=== PATIENT | female | born 1945 | race African-American/Black ===

== ENCOUNTER → 2017-02-01 | Outpatient (CLI) | payer MEDICARE, MEDICAID | LOC: OD 15:39 | PROVIDERS: ATTEND Internal Medicine | DX: I25.118 Atherosclerotic heart disease of native coronary artery with other forms of angina pectoris (principal); Z79.899 Other long term (current) drug therapy; E78.5 Hyperlipidemia, unspecified; E78.4 Other hyperlipidemia; Z98.61 Coronary angioplasty status; G47.30 Sleep apnea, unspecified; I10 Essential (primary) hypertension; I25.2 Old myocardial infarction; I42.8 Other cardiomyopathies; I73.9 Peripheral vascular disease, unspecified; E11.9 Type 2 diabetes mellitus without complications; R09.89 Other specified symptoms and signs involving the circulatory and respiratory systems; R06.00 Dyspnea, unspecified | CPT/HCPCS: 36415; 83880 ==

== ENCOUNTER 2017-08-17 21:41 | Emergency (ER) | payer MEDICARE, MEDICAID ==
--- NOTE | 2017-08-18 00:04 | RADIOLOGY REPORT (SQ) ---
EXAM DESCRIPTION: HIP BILATERAL CLINICAL HISTORY: pain COMPARISON: None. FINDINGS: Single view of the pelvis and single frog-leg views of the bilateral hips. No acute fracture or dislocation. Moderate bilateral hip joint space narrowing and marginal osteophytosis. Atherosclerotic vascular calcification. IMPRESSION: 1. No acute fracture. 2. Moderate bilateral osteoarthritic change of the hips, slightly more prominent on the right than the left.
--- NOTE | 2017-08-18 00:05 | RADIOLOGY REPORT (SQ) ---
EXAM DESCRIPTION: KNEE LEFT 3 VIEWS CLINICAL HISTORY: pain COMPARISON: None. FINDINGS: 3 views of the left knee. No acute fracture or dislocation. No definite joint effusion. Atherosclerotic vascular calcification. Mild 3 compartment joint space narrowing with marginal osteophytosis. IMPRESSION: 1. No acute fracture or dislocation. 2. Mild 3 compartment osteoarthritic change.
--- NOTE | 2017-08-18 00:06 | RADIOLOGY REPORT (SQ) ---
EXAM DESCRIPTION: KNEE right 3 VIEWS CLINICAL HISTORY: pain COMPARISON: None. FINDINGS: 3 views of the right knee. No acute fracture or dislocation. No definite joint effusion. Atherosclerotic vascular calcification. Mild 3 compartment joint space narrowing with marginal osteophytosis. IMPRESSION: 1. No acute fracture or dislocation. 2. Mild 3 compartment osteoarthritic change.
[2017-08-18] MEDS ORDERED: HYDROCODONE/ACETAMINOPHEN 5-325 MG TABLET PO ONE (00:33)
[2017-08-18] MEDS ORDERED: DEXAMETHASONE SOD PHOS INJ 10 MG/1 ML VIAL IM ONE (00:35)
--- NOTE | 2017-08-18 00:40 | ER Document Report ---
ED Extremity Problem, Lower - General Chief Complaint: Leg Pain Stated Complaint: LEG PAIN Time Seen by Provider: 08/17/17 22:55 Mode of Arrival: Wheelchair Information source: Patient, Relative Notes: Patient is a 72-year-old very short obese black female who comes to emergency room complaining of bilateral knee and hip pain. Patient states she is to the point where she cannot walk more herself around or go any place because the pain and discomfort. She states that the combination of the hips and the started approximately 2 weeks ago. She does state she is followed up with her primary care provider and was informed that she probably has just arthritis and that that is not a lot to do for it. This is as per patient. TRAVEL OUTSIDE OF THE [place] IN LAST 30 DAYS: No - Related Data Allergies/Adverse Reactions: codeine [Codeine] Allergy (Verified 08/17/17 21:44) Past Medical History - General Information source: Patient, Relative - Social History Smoking Status: Never Smoker Cigarette use (# per day): No Chew tobacco use (# tins/day): No Smoking Education Provided: No Family History: Reviewed & Not Pertinent Patient has suicidal ideation: No Patient has homicidal ideation: No - Past Medical History Cardiac Medical History: Reports: Hx Coronary Artery Disease, Hx Hypercholesterolemia, Hx Hypertension Pulmonary Medical History: Reports: Hx COPD Denies: Hx Tuberculosis Neurological Medical History: Reports: Hx Cerebrovascular Accident - with residual left face mild weakness. Denies: Hx Seizures Endocrine Medical History: Reports: Hx Diabetes Mellitus Type 1, Hx Diabetes Mellitus Type 2 - With insulin Renal/ Medical History: Denies: Hx Peritoneal Dialysis GI Medical History: Reports: Hx Gastroesophageal Reflux Disease Musculoskeltal Medical History: Reports Hx Arthritis, Reports Hx Muscle Weakness Psychiatric Medical History: Reports: Hx Depression Past Surgical History: Reports: Hx Cardiac Surgery - cardiac stents, Hx Hysterectomy, Hx Tonsillectomy. Denies: Hx Pacemaker - Immunizations Hx Diphtheria, Pertussis, Tetanus Vaccination: No Hx Pneumococcal Vaccination: 09/05/07 Review of Systems - Review of Systems Constitutional: No symptoms reported EENT: No symptoms reported Cardiovascular: No symptoms reported Respiratory: No symptoms reported Gastrointestinal: No symptoms reported Genitourinary: No symptoms reported Female Genitourinary: No symptoms reported Musculoskeletal: Joint pain, Joint swelling, Muscle pain Skin: No symptoms reported Hematologic/Lymphatic: No symptoms reported Neurological/Psychological: No symptoms reported -: Yes All other systems reviewed and negative Physical Exam - Vital signs Vitals: Temp Pulse Resp BP Pulse Ox 98.6 F 65 16 144/67 H 94 08/17/17 21:49 08/17/17 21:49 08/17/17 21:49 08/17/17 21:49 08/17/17 21:49 Interpretation: Hypertensive - General General appearance: Alert, Other - On physical exam patient in the exam room she was sitting in a wheelchair. I attempted to do any exam on patient there but she was too uncomfortable. I obtained a nurse and had her help me a temp to move patient. Patient was almost weight on her knees. She would hardly stand and would hop on the left in order to protect the right. Patient is becoming less and less mobile according to the daughter. She is having a difficult time just transferring. - Respiratory Respiratory status: No respiratory distress Chest status: Nontender Breath sounds: Normal. No: Decreased air movement, Nonproductive cough, Productive cough, Rales, Rhonchi, Stridor, Wheezing, Other - Cardiovascular Rhythm: Regular Heart sounds: Normal auscultation - Abdominal Inspection: Normal Distension: Distended, Tympanitic. No: No distension, Fluid wave, Distended bladder, Other Bowel sounds: Normal Tenderness: No: Nontender, Tender, McBurney's point, Huitron's sign, Guarding, Rebound, Other Adult front & back diagram: 1 - Patient displays severe pain in bilateral knees. Mild swelling to both. Good popliteal pulses. Good distal dorsalis pedal pulses. Flexion and extension passively minimal pain but with active range of motion severe pain weightbearing is severe pain. 2 - Secondary area of discomfort and pain in her bilateral hips both tender to palpation however the right anterior hip is more tender than the left. There does seem to be a slight shortening on the left but no external or internal rotation noted. It could be patient's angle laying supine. - Back Back: Normal, Nontender. No: Tender, Deformity/step-off, CVA tenderness, Vertebra tenderness, Scars, Scoliosis, Wounds, Other - Extremities General upper extremity: Normal inspection, Normal ROM General lower extremity: Tender. No: Normal inspection, Nontender, Edema, Normal color, Normal ROM, Normal strength, Normal temperature, Normal weight bearing, Yariel's sign, Other Hip: Tender, Pain with ROM, Other - Patient is able to bear weight but very very limited. Has extensive pain anytime she is weightbearing. Right greater than left. Vascular status is intact. DTRs are normal. Knee: Tender, Pain with ROM, Patellar tendon intact, Tender joint line, Other - Again passive range of motion is limited discomfort active range of motion is more severe and weightbearing is extremely difficult. Popliteal pulses are normal dorsalis pedal pulses are normal Calf: Normal, Nontender Course - Vital Signs Vital signs: Temp Pulse Resp BP Pulse Ox 98.0 F 68 16 151/72 H 95 08/18/17 00:50 08/18/17 00:50 08/18/17 00:50 08/18/17 00:50 08/18/17 00:50 - Diagnostic Test Radiology reviewed: Reports reviewed - Reports of the hips show arthritis bilaterally a plain films of the knees show 3 compartment DJD [id number]. - Transfer of Care Notes: 08/18/17 01:33 I discussed with patient and patient's daughter that [id number] limited things we can do. We will try her on a short taper her steroids to see if that helps with the inflammation. I have given her a slightly more potent pain medication and Charlotte 5 mg and have talked to the daughter about it. I have fired them to talk to the primary care provider about possible referral to orthopedic however I informed him that primary doctor knows him much better than I do and knows her risk of surgery and benefit versus outcome. Patient and daughter acknowledges. Discharge - Discharge Clinical Impression: Arthritis of both hips Degenerative joint disease of knee, left Qualifiers: Osteoarthritis type: primary Qualified Code(s): M17.12 - Unilateral primary osteoarthritis, left knee Degenerative joint disease of knee, right Qualifiers: Osteoarthritis type: primary Qualified Code(s): M17.11 - Unilateral primary osteoarthritis, right knee Condition: Good Disposition: HOME, SELF-CARE Instructions: Arthritis ([facility]) Additional Instructions: As we discussed the x-rays show that you have pretty much bone on bone in both knees which causes several things to happen to get inflammation from the friction of the bone to bone and also the banging of the bone to bone. This also sent shockwaves up into the hips which caused increased pain. We will try you on a short course of steroid taper we will give you a little bit of pain medication to increase your activity of daily living slightly. As we discussed you need to discuss this with your primary care provider possibility of an orthopedic referral to see if there is anything they can do to decrease the amount of discomfort from [id number]. Or physical therapy that may also help some. Should you have any concerns or problems return to ER for recheck. Prescriptions: Hydrocodone/Acetaminophen [Charlotte 7.5-325 mg Tablet] 1 tab PO Q6 #15 tablet Methylprednisolone [Medrol Dosepack (4 mg/Tab) 21 Tab/Dosepak] 4 mg PO ASDIR PRN #21 tab.ds.pk PRN Reason: Referrals: DANIELA ANDERSEN MD [Primary Care Provider] - Follow up as needed
[2017-08-18 01:09] VITALS: BP 151/72
== END 2017-08-18 01:05 | disposition home or self-care (01) ==
LOC: ER 21:41
DX: M16.0 Bilateral primary osteoarthritis of hip (principal); M17.0 Bilateral primary osteoarthritis of knee; M25.561 Pain in right knee; M25.562 Pain in left knee; M25.551 Pain in right hip; M25.552 Pain in left hip; R14.0 Abdominal distension (gaseous); I25.10 Atherosclerotic heart disease of native coronary artery without angina pectoris; I10 Essential (primary) hypertension; J44.9 Chronic obstructive pulmonary disease, unspecified; E11.9 Type 2 diabetes mellitus without complications; Z95.5 Presence of coronary angioplasty implant and graft; Z88.5 Allergy status to narcotic agent
CPT/HCPCS: 99283; 96372; 73562 ×2; 73522; J1100; A9270; 76705; 77063; 77067; G0202

== ENCOUNTER → 2017-08-17 | Outpatient (CLI) | payer MEDICARE, MEDICAID ==
--- NOTE | 2017-08-17 10:37 | RADIOLOGY REPORT (SQ) ---
EXAM DESCRIPTION: U/S ABDOMEN LIMITED W/O DOP COMPLETED DATE/TIME: 08/17/2017 9:35 am REASON FOR STUDY: EPIGASTRIC PAIN R10.13 EPIGASTRIC PAIN Z12.31 ENCNTR SCREEN MAMMOGRAM FOR MALIGN ANT NEOPLASM OF GRACE COMPARISON: 07/30/2012 TECHNIQUE: Dynamic and static grayscale images acquired of the abdomen and recorded on PACS. Additio nal selected color Doppler and spectral images recorded. LIMITATIONS: None. FINDINGS: PANCREAS: No masses. Visualized pancreatic duct normal caliber. LIVER: 14.1 cm. Normal echotexture. LIVER VASCULATURE: Normal directional flow of the main portal vein and hepatic veins. GALLBLADDER: No stones. Normal wall thickness. No pericholecystic fluid. ULTRASOUND-DETECTED KRAUSE'S SIGN: Negative. INTRAHEPATIC DUCTS AND COMMON DUCT: CBD and intrahepatic ducts normal caliber. No filling defects. INFERIOR VENA CAVA: Normal flow. AORTA: No aneurysm. RIGHT KIDNEY: Normal size, 9.2 cm. Normal echogenicity. No solid or suspicious masses. No hydronephr osis. No calcifications. PERITONEAL AND RIGHT PLEURAL SPACE: No ascites or effusions. OTHER: No other significant findings. IMPRESSION: NORMAL RIGHT UPPER QUADRANT ULTRASOUND. TECHNICAL DOCUMENTATION: JOB ID: [id number] [employer]- All Rights Reserved
--- NOTE | 2017-08-17 16:54 | WOMENS IMAGING REPORT ---
EXAM DESCRIPTION: 3D SCREENING MAMMO BILAT COMPLETED DATE/TIME: 08/17/2017 10:01 am REASON FOR STUDY: SCREENING MAMMO R10.13 EPIGASTRIC PAIN COMPARISON: Multiple since 2008 TECHNIQUE: Standard craniocaudal and mediolateral oblique views of each breast recorded using digita l acquisition and breast tomosynthesis. LIMITATIONS: None. FINDINGS: Findings present which are benign by mammographic criteria. No suspicious masses, calcifi cations or architectural distortion. Pertinent benign findings: Benign bilateral vascular calcifications Read with the assistance of CAD. .[facility] - R2 Cenova Version 1.3 .[facility] - R2 Cenova Version 1.3 .[facility] - R2 Cenova Version 2.4 .[facility] [place] Cenova Version 2.4 .[facility] - R2 Beekeeper Version 9.2 Benign mammographic findings may include one or more of the following: Smooth masses, popcorn/rim/co arse calcifications, asymmetries, post-procedure changes, and lesions with long-standing stability. IMPRESSION: BENIGN MAMMOGRAPHIC FINDINGS. BIRADS 2 BREAST DENSITY: b. There are scattered areas of fibroglandular density. BIRAD: 2 BENIGN FINDING(S) RECOMMENDATION: RECOMMENDATION: ROUTINE SCREENING COMMENT: The patient has been notified of the results by letter per SA requirements. Additional no tification policies are in place for contacting patient with suspicious or incomplete findings. Quality ID #225: The [place] [employer] recommends an annual screening mammogram for women aged 40 years or over. This facility utilizes a reminder system to ensure that all patients receive reminder letters, and/or direct phone calls for appointments. This includes reminders for routine scr eening mammograms, diagnostic mammograms, or other Breast Imaging Interventions when appropriate. Th is patient will be placed in the appropriate reminder system. The [place] [employer] (ACR) has developed recommendations for screening MRI of the breast s in certain patient populations, to be used in conjunction with mammography. Breast MRI surveillanc e may be appropriate for women with more than 20% lifetime risk of developing breast cancer as deter mined by genetic testing, significant family history of the disease, or history of mantle radiation f or Hodgkins Disease. ACR Practice Guidelines 2008. DBT Technology DBT is a type of tomographic mammography. With conventional mammography, overlapping breast tissue ma y make lesions difficult to detect, even with good compression. DBT uses an x-ray tube that rotates a round the breast, taking images at different angles. These images are then combined to create thin sl ices of the breast that the radiologist can view as a 3D reconstruction. The Hologic unit can perform full-field digital mammograms (2D imaging); or DBT (3D imaging); or both, in a combination mode that quickly performs both the mammogram and the tomosynthesis scan while the breast is still compressed. PQRS 6045F: Fluoroscopic imaging is not utilized for breast tomosynthesis. TECHNICAL DOCUMENTATION: FINDING NUMBER: (1) ASSESSMENT: (1) JOB ID: [id number] [employer]- All Rights Reserved
== END ==
LOC: RAD 08:55
PROVIDERS: ATTEND Internal Medicine Gastroenterology
DX: Z12.31 Encounter for screening mammogram for malignant neoplasm of breast (principal); R10.13 Epigastric pain
CPT/HCPCS: 76705; 77063; G0202; 77067

== ENCOUNTER → 2017-09-26 | Outpatient (CLI) | payer MEDICARE, MEDICAID ==
--- NOTE | 2017-09-26 17:02 | RADIOLOGY REPORT (SQ) ---
EXAM DESCRIPTION: CAROTID DOPPLER COMPLETED DATE/TIME: 09/26/2017 12:07 pm REASON FOR STUDY: STENOSIS, BRUIT I65.23 OCCLUSION AND STENOSIS OF BILATERAL CAROTID ARTERIES COMPARISON: None. TECHNIQUE: Grayscale ultrasound, Doppler velocity and spectra, and color Doppler images acquired of the extra-cranial carotid and vertebral arteries. Images stored on PACS. LIMITATIONS: None. FINDINGS: RIGHT CAROTID CCA Velocities: Within normal limits. ICA Velocities Peak systolic 1.4 m/s. End diastolic 0.33 m/s. Proximal ICA/CCA peak systolic ratio 2.3. Moderate plaquing. Velocities consistent with 50 to 69% ICA stenosis, closer to 50%. LEFT CAROTID CCA Velocities: Occluded ICA Velocities Occluded. ECA occluded. VERTEBRAL ARTERIES: Antegrade flow. Normal waveforms. SUBCLAVIAN ARTERIES: No finding. OTHER: No other significant finding. IMPRESSION: 1. Occlusion of the left common carotid, left internal carotid and left external caroti d. 2. 50 to 69% stenosis involving the right ICA, closer to 50%. COMMENT: Quality ID #195: Velocity criteria are extrapolated from the diameter data as defined by t he Society of Radiologists in Ultrasound Consensus Conference. Radiology 2003: 229; 340-346. TECHNICAL DOCUMENTATION: JOB ID: [id number] [employer]- All Rights Reserved
== END ==
LOC: SP 11:06
PROVIDERS: ATTEND Specialist
DX: I65.23 Occlusion and stenosis of bilateral carotid arteries (principal)
CPT/HCPCS: 93880

== ENCOUNTER → 2018-06-12 | Outpatient (CLI) | payer MEDICARE, MEDICAID ==
--- NOTE | 2018-06-12 15:42 | RADIOLOGY REPORT (SQ) ---
EXAM DESCRIPTION: CAROTID DOPPLER COMPLETED DATE/TIME: 06/12/2018 3:09 pm REASON FOR STUDY: BRUIT I65.23 OCCLUSION AND STENOSIS OF BILATERAL CAROTID ARTERIES COMPARISON: 09/26/2017 TECHNIQUE: Grayscale ultrasound, Doppler velocity and spectra, and color Doppler images acquired of the extra-cranial carotid and vertebral arteries. Images stored on PACS. LIMITATIONS: None. FINDINGS: RIGHT CAROTID CCA Velocities: 66 centimeters/second ICA Velocities Peak systolic 138 cm/s. End diastolic 28 cm/s. Proximal ICA/CCA peak systolic ratio 2.3. Multiple plaques are present in the carotid bulb, internal carotid, and external carotid arteries. LEFT CAROTID Occluded. VERTEBRAL ARTERIES: Antegrade flow. Normal waveforms. SUBCLAVIAN ARTERIES: No finding. OTHER: No other significant finding. IMPRESSION: Complete occlusion of the left common, internal, and external carotid arteries. 50 to 6 9% stenosis on the right side. COMMENT: Quality ID #195: Velocity criteria are extrapolated from the diameter data as defined by t he Society of Radiologists in Ultrasound Consensus Conference. Radiology 2003: 229; 340-346. TECHNICAL DOCUMENTATION: JOB ID: [id number] [employer]- All Rights Reserved Reading location - IP/workstation name: [email or web address]
== END ==
LOC: SP 14:03
PROVIDERS: ATTEND Specialist
DX: I65.23 Occlusion and stenosis of bilateral carotid arteries (principal)
CPT/HCPCS: 93880

== ENCOUNTER 2018-08-16 12:05 | Emergency (ER) | payer MEDICARE, MEDICAID ==
--- NOTE | 2018-08-16 12:44 | ER Document Report ---
ED Medical Screen (RME) - General Chief Complaint: S/S of Possible Stroke Stated Complaint: STROKE WORK UP Time Seen by Provider: 08/16/18 12:36 Notes: Patient is a 73-year-old female with history of CVA that presents to the emergency department for chief complaint of needing blood work, and left eye vision loss. 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 She apparently has a history of carotid artery stenosis as well. ROS: Other than noted above, the 12 point review of systems was reviewed with the patient and were negative, all pertinent findings are included in the HPI. PHYSICAL EXAMINATION: Vital signs reviewed. GENERAL: Well-appearing, well-nourished and in no acute distress. HEAD: Atraumatic, normocephalic. EYES: Pupils equal round, dilated, extraocular movements intact, conjunctiva are normal. ENT: Nares patent NECK: Normal range of motion CV: Heart regular rate and rhythm LUNGS: No respiratory distress Musculoskeletal: Normal range of motion NEUROLOGICAL: Normal speech PSYCH: Normal mood, normal affect. MDM: Patient seen and examined for rapid initial assessment. Vital signs reviewed. A comprehensive ED assessment and evaluation of the patient, analysis of test results and completion of the medical decision making process will be conducted by additional ED providers. *Note is created using voice recognition software and may contain spelling, syntax or grammatical errors. TRAVEL OUTSIDE OF THE [place] IN LAST 30 DAYS: No - Related Data Allergies/Adverse Reactions: codeine [Codeine] Allergy (Verified 08/17/17 21:44) Past Medical History - Past Medical History Cardiac Medical History: Reports: Hx Coronary Artery Disease, Hx Hypercholesterolemia, Hx Hypertension Pulmonary Medical History: Reports: Hx COPD Denies: Hx Tuberculosis Neurological Medical History: Reports: Hx Cerebrovascular Accident - with residual left face mild weakness. Denies: Hx Seizures Endocrine Medical History: Reports: Hx Diabetes Mellitus Type 1, Hx Diabetes Mellitus Type 2 - With insulin Renal/ Medical History: Denies: Hx Peritoneal Dialysis GI Medical History: Reports: Hx Gastroesophageal Reflux Disease Musculoskeltal Medical History: Reports Hx Arthritis, Reports Hx Muscle Weakness Psychiatric Medical History: Reports: Hx Depression Past Surgical History: Reports: Hx Cardiac Surgery - cardiac stents, Hx Hysterectomy, Hx Tonsillectomy. Denies: Hx Pacemaker - Immunizations Hx Diphtheria, Pertussis, Tetanus Vaccination: No Physical Exam - Vital signs Vitals: Temp Pulse Resp BP Pulse Ox 99.1 F 63 20 125/57 L 99 08/16/18 12:16 08/16/18 12:16 08/16/18 12:16 08/16/18 12:16 08/16/18 12:16 Course - Vital Signs Vital signs: Temp Pulse Resp BP Pulse Ox 99.1 F 63 20 125/57 L 99 08/16/18 12:16 08/16/18 12:16 08/16/18 12:16 08/16/18 12:16 08/16/18 12:16 Doctor's Discharge - Discharge Referrals: DANIELA ANDERSEN MD [Primary Care Provider] - Follow up as needed
--- NOTE | 2018-08-16 13:13 | RADIOLOGY REPORT (SQ) ---
EXAM DESCRIPTION: CHEST SINGLE VIEW COMPLETED DATE/TIME: 08/16/2018 12:56 pm REASON FOR STUDY: left eye vision loss COMPARISON: September 2015 EXAM PARAMETERS: NUMBER OF VIEWS: One view. TECHNIQUE: Single frontal radiographic view of the chest acquired. RADIATION DOSE: NA LIMITATIONS: None. FINDINGS: LUNGS AND PLEURA: No opacities, masses or pneumothorax. No pleural effusion. MEDIASTINUM AND HILAR STRUCTURES: No masses. Contour normal. HEART AND VASCULAR STRUCTURES: Heart normal in size. Normal vasculature. BONES: No acute findings. HARDWARE: None in the chest. OTHER: No other significant finding. IMPRESSION: NO ACUTE RADIOGRAPHIC FINDING IN THE CHEST. TECHNICAL DOCUMENTATION: JOB ID: [id number] [employer]- All Rights Reserved Reading location - IP/workstation name: [email or web address]
--- NOTE | 2018-08-16 13:23 | RADIOLOGY REPORT (SQ) ---
EXAM DESCRIPTION: CT HEAD WITHOUT COMPLETED DATE/TIME: 08/16/2018 1:07 pm REASON FOR STUDY: left eye vision loss COMPARISON: February 2011 TECHNIQUE: Axial images acquired through the brain without intravenous contrast. Images reviewed wi th bone, brain and subdural windows. Additional sagittal and coronal reconstructions were generated. Images stored on PACS. All CT scanners at this facility use dose modulation, iterative reconstruction, and/or weight based d osing when appropriate to reduce radiation dose to as low as reasonably achievable (ALARA). [facility]: Dose Right [facility]: CareDose [facility]: Dose Right [facility]: Teradose 4D [facility]: [employer] RADIATION DOSE: CT Rad equipment meets quality standard of care and radiation dose reduction techniq ues were employed. CTDIvol: 48.5 mGy. DLP: 855 mGy-cm. mGy. LIMITATIONS: None. FINDINGS: VENTRICLES: Prominent. CEREBRUM: No masses. No hemorrhage. No midline shift. Areas of low density in the white matter mos t likely due to chronic micro-vascular ischemic change. The previously described old left frontal lo be infarct appears stable. No evidence for acute infarction. CEREBELLUM: No masses. No hemorrhage. No alteration of density. No evidence for acute infarction. EXTRAAXIAL SPACES: Mild age-related involutional change. No fluid collections. No masses. ORBITS AND GLOBE: No intra- or extraconal masses. Normal contour of globe without masses. CALVARIUM: No fracture. PARANASAL SINUSES: No fluid or mucosal thickening. SOFT TISSUES: No mass or hematoma. OTHER: No other significant finding. IMPRESSION: MILD CHRONIC CHANGES OF ATROPHY AND MICROVASCULAR ISCHEMIA. NO ACUTE PROCESS. EVIDENCE OF ACUTE STROKE: NO. TECHNICAL DOCUMENTATION: JOB ID: [id number] Quality ID # [id number]: Final reports with documentation of one or more dose reduction techniques (e.g., Au tomated exposure control, adjustment of the mA and/or kV according to patient size, use of iterative reconstruction technique) 2010 [employer]- All Rights Reserved Reading location - IP/workstation name: [email or web address]
[2018-08-16 14:00] LABS: ABSOLUTE EOSINOPHILS # (AUTO) 0.1 10^3/uL (0.0-0.6); ABSOLUTE MONOCYTES (AUTO) 0.3 10^3/uL (0.1-1.4); ABSOLUTE NEUT (AUTO) 1.8 10^3/uL (1.7-8.2); BASOPHILS % (AUTO) 0.9 % (0-2); EOSINOPHILS % (AUTO) 3.2 % (0-6); HEMATOCRIT 36.2 % (36.0-47.0); HEMOGLOBIN 12.1 g/dL (12.0-15.5); LYMPHOCYTES % (AUTO) 31.6 % (13-45); MEAN CORPUSCULAR HEMOGLOBIN 29.1 pg (27.0-33.4); MEAN CORPUSCULAR HGB CONC 33.5 g/dL (32.0-36.0); MEAN CORPUSCULAR VOLUME 87 fl (80-97); MONOCYTES % (AUTO) 8.4 % (3-13); PLATELET COUNT 193 10^3/uL (150-450); RED BLOOD COUNT 4.17 10^6/uL (3.72-5.28); RED CELL DISTRIBUTION WIDTH 16.2 % (11.5-14.0); SEGMENTED NEUTROPHILS % (AUTO) 55.9 % (42-78); TOTAL CELLS COUNTED % (AUTO) 100 %; WHITE BLOOD COUNT 3.2 10^3/uL (4.0-10.5)
[2018-08-16 14:21] LABS: ALANINE AMINOTRANSFERASE 13 U/L (9-52); ALKALINE PHOSPHATASE 57 U/L (38-126); ANION GAP 7 (5-19); ASPARTATE AMINO TRANSFERASE 16 U/L (14-36); BILIRUBIN,TOTAL 0.6 mg/dL (0.2-1.3); BLOOD UREA NITROGEN 23 mg/dL (7-20); CALCIUM 9.7 mg/dL (8.4-10.2); CARBON DIOXIDE 35 mmol/L (22-30); CHLORIDE 102 mmol/L (98-107); GLUCOSE 100 mg/dL (75-110); SODIUM 144.3 mmol/L (137-145); TOTAL PROTEIN 7.2 g/dL (6.3-8.2)
[2018-08-16 14:22] LABS: C-REACTIVE PROTEIN < 5.0 mg/L (<10.0)
[2018-08-16 14:47] LABS: ERYTHROCYTE SEDIMENTATION RATE 39 mm/hr (0-30)
--- NOTE | 2018-08-16 15:04 | ER Document Report ---
ED General - General Chief Complaint: S/S of Possible Stroke Stated Complaint: STROKE WORK UP Time Seen by Provider: 08/16/18 12:36 Notes: This is a 73-year-old female patient sent over by the retinal specialist for evaluation of possible stroke. Patient lost the vision in her left eye on of last week. Had eye appointment on Tuesday with Dr. Manning. Dr. Manning wanted patient seen by retinal specialist Dr. Martinez. Dr. Hill did evaluation dilated the eyes and was concerned about possible stroke so sent her here for evaluation. Patient has had previous stroke affecting the left side. Speech has not changed. Safemaker strength is not changed. Patient can see some movement out of the left eye and some light. Cannot discern shapes well. Denies any pain. Patient presents here with dilated pupils and light protection shades on. TRAVEL OUTSIDE OF THE [place] IN LAST 30 DAYS: No - HPI Onset: Last week Onset/Duration: Constant Quality of pain: No pain Severity: Mild Pain Level: 0 Associated symptoms: None - Related Data Allergies/Adverse Reactions: codeine [Codeine] Allergy (Verified 08/17/17 21:44) Past Medical History - General Information source: Patient, Relative - Social History Smoking Status: Former Smoker Chew tobacco use (# tins/day): No Frequency of alcohol use: None Drug Abuse: None Lives with: Family Family History: Reviewed & Not Pertinent Patient has suicidal ideation: No Patient has homicidal ideation: No - Past Medical History Cardiac Medical History: Reports: Hx Coronary Artery Disease, Hx Hypercholesterolemia, Hx Hypertension Pulmonary Medical History: Reports: Hx COPD Denies: Hx Tuberculosis Neurological Medical History: Reports: Hx Cerebrovascular Accident - with residual left face mild weakness. Denies: Hx Seizures Endocrine Medical History: Reports: Hx Diabetes Mellitus Type 1, Hx Diabetes Mellitus Type 2 - With insulin Renal/ Medical History: Denies: Hx Peritoneal Dialysis GI Medical History: Reports: Hx Gastroesophageal Reflux Disease Musculoskeletal Medical History: Reports Hx Arthritis, Reports Hx Muscle Weakness Psychiatric Medical History: Reports: Hx Depression Past Surgical History: Reports: Hx Cardiac Surgery - cardiac stents, Hx Hysterectomy, Hx Tonsillectomy. Denies: Hx Pacemaker - Immunizations Hx Diphtheria, Pertussis, Tetanus Vaccination: No Hx Pneumococcal Vaccination: 09/05/07 Review of Systems - Review of Systems Notes: Constitutional: denies: Chills, Diaphoresis, Fever, Malaise, Weakness EENT: denies: Eye discharge, Blurred vision, Tearing, Double vision, Nose congestion, Nose discharge, Throat swelling, Mouth pain. Patient does complain of vision loss in the left eye. Cardiovascular: denies: Palpitations, Heart racing, Orthopnea, Dyspnea, Chest pain Respiratory: denies: Cough, Hurts to breathe, Wheezing, Shortness of breath Gastrointestinal: denies: Abdominal pain, Diarrhea, Nausea, Vomiting, Black stools, bright red blood in stool Genitourinary: denies: Burning, Dysuria, Discharge, Frequency, Flank pain, Hematuria Musculoskeletal: denies: Joint pain, Joint swelling, Muscle pain, Muscle stiffness, back pain Hematologic/Lymphatic: denies: Anemia, Easy bleeding, Easy bruising, Blood clots Neurological/Psychological: denies: Confusion, Dementia, Depression, Loss of consciousness. Chronic left upper and left lower extremity weakness and speech difficulty from prior stroke. Skin: No lesions, no masses, no skin breakdown, no abscesses Physical Exam - Vital signs Vitals: Temp Pulse Resp BP Pulse Ox 99.1 F 63 20 125/57 L 99 08/16/18 12:16 08/16/18 12:16 08/16/18 12:16 08/16/18 12:16 08/16/18 12:16 Interpretation: Normal - General General appearance: Appears well, Alert - HEENT Head: Normocephalic, Atraumatic Eyes: Normal Pupils: Dilated Notes: Patient can see objects out of the left eye. Right eye is normal. Cannot discern anything far away but can discern some shapes up close. - Respiratory Respiratory status: No respiratory distress Chest status: Nontender Breath sounds: Normal Chest palpation: Normal - Cardiovascular Rhythm: Regular Heart sounds: Normal auscultation Murmur: No - Abdominal Inspection: Normal Distension: No distension Bowel sounds: Normal Tenderness: Nontender Organomegaly: No organomegaly - Back Back: Normal, Nontender - Extremities General upper extremity: Normal inspection, Nontender, Normal color, Normal ROM , Normal temperature General lower extremity: Normal inspection, Nontender, Normal color, Normal ROM , Normal temperature, Normal weight bearing. No: Yariel's sign - Neurological Neuro grossly intact: Yes Cognition: Normal Orientation: AAOx4 [place] Coma Scale Eye Opening: Spontaneous Raghav Coma Scale Verbal: Oriented [place] Coma Scale Motor: Obeys Commands Raghav Coma Scale Total: 15 Speech: Normal Motor strength normal: RUE, RLE. No: LUE, LLE - mild weakness Sensory: Normal - Psychological Associated symptoms: Normal affect, Normal mood - Skin Skin Temperature: Warm Skin Moisture: Dry Skin Color: Normal Course - Re-evaluation Re-evalutation: 08/16/18 16:59 Laboratory 08/16/18 08/16/18 08/16/18 13:36 13:36 13:36 WBC 3.2 L RBC 4.17 Hgb 12.1 Hct 36.2 MCV 87 MCH 29.1 MCHC 33.5 RDW 16.2 H Plt Count 193 Seg Neutrophils % 55.9 Lymphocytes % 31.6 Monocytes % 8.4 Eosinophils % 3.2 Basophils % 0.9 Absolute Neutrophils 1.8 Absolute Lymphocytes 1.0 Absolute Monocytes 0.3 Absolute Eosinophils 0.1 Absolute Basophils 0.0 ESR 39 H Sodium 144.3 Potassium 4.0 Chloride 102 Carbon Dioxide 35 H Anion Gap 7 BUN 23 H Creatinine 0.83 Est GFR ( Amer) > 60 Est GFR (Non-Af Amer) > 60 Glucose 100 Calcium 9.7 Total Bilirubin 0.6 Direct Bilirubin 0.0 Neonat Total Bilirubin Not Reportable Neonat Direct Bilirubin Not Reportable Neonat Indirect Bili Not Reportable AST 16 ALT 13 Alkaline Phosphatase 57 Troponin I < 0.012 C-Reactive Protein < 5.0 Total Protein 7.[address] 08/16/18 12:44 IMPRESSION: MILD CHRONIC CHANGES OF ATROPHY AND MICROVASCULAR ISCHEMIA. NO ACUTE PROCESS. EVIDENCE OF ACUTE STROKE: NO. Chest X-Ray 08/16/18 12:45 IMPRESSION: NO ACUTE RADIOGRAPHIC FINDING IN THE CHEST. Head MRI 08/16/18 15:03 IMPRESSION: MINIMAL MICROVASCULAR ISCHEMIC CHANGE. Stable area of prior infarction in the left frontal lobe. Other findings as noted above EVIDENCE OF ACUTE STROKE: NO. At this time I see no evidence of acute stroke. Symptoms have been present since last week. At this time will discharge in stable condition. 08/16/18 20:13 Discussed the case with the leaf blender who sent her here. He is comfortable with the outcomes of this workup. He will follow her as an outpatient. I have discussed the case as well with the patient's primary care provider, Dr. Smith, he will see her tomorrow. At this time patient is already on aspirin and Plavix. Nothing further in my opinion to add at this time. I have advised her to return if she develops any worsening symptoms or concerns. will see her tomorrow and will do further evaluation. Patient is comfortable with this plan. Will DC at this time in stable condition. - Vital Signs Vital signs: Temp Pulse Resp BP Pulse Ox 99.1 F 61 13 159/61 H 98 08/16/18 12:16 08/16/18 18:23 08/16/18 18:23 08/16/18 18:23 08/16/18 18:23 - Laboratory Result Diagrams: 08/16/18 13:36 08/16/18 13:36 Laboratory results interpreted by me: 08/16/18 08/16/18 13:36 13:36 WBC 3.2 L RDW 16.2 H ESR 39 H Carbon Dioxide 35 H BUN 23 H Discharge - Discharge Clinical Impression: Vision loss of left eye Condition: Good Disposition: HOME, SELF-CARE Instructions: Stroke ([facility]) Additional Instructions: Continue with all of your regular medications as prescribed. Follow up with your doctor tomorrow. Return immediately for any concerns Referrals: DANIELA ANDERSEN MD [Primary Care Provider] - Follow up tomorrow
--- NOTE | 2018-08-16 16:35 | RADIOLOGY REPORT (SQ) ---
EXAM DESCRIPTION: MRI HEAD WITHOUT COMPLETED DATE/TIME: 08/16/2018 3:59 pm REASON FOR STUDY: left vision loss COMPARISON: Brain CT scan dated 08/16/2018 TECHNIQUE: Multiplanar imaging includes non-contrasted T1, T2, FLAIR, and Diffusion with ADC map seq uences. Images stored on PACS. LIMITATIONS: None. FINDINGS: ANATOMY: No anomalies. Normal vascular flow voids. Pituitary fossa normal. CSF SPACES: Normal in size and contour. No hemorrhage. CEREBRUM: A few high-signal intensity lesions scattered throughout the white matter on FLAIR imaging with distribution suggesting chronic micro-vascular ischemic change. Sulci and gyri normal in size a nd contour. No evidence of hemorrhage, mass or extraaxial fluid collection. The previously describe d area of prior infarction in the left frontal lobe appears stable. POSTERIOR FOSSA: No signal alteration. No hemorrhage. No edema, masses or mass effect. Internal trenton tory canals, cerebello-pontine angles, mastoids normal. DIFFUSION: Negative for acute or sub-acute infarction. ORBITS: No masses. Globes normal. PARANASAL SINUSES: No fluid levels. Mucosa normal. OTHER: No other significant finding. IMPRESSION: MINIMAL MICROVASCULAR ISCHEMIC CHANGE. Stable area of prior infarction in the left fron delsia lobe. Other findings as noted above EVIDENCE OF ACUTE STROKE: NO. TECHNICAL DOCUMENTATION: JOB ID: [id number] [employer]- All Rights Reserved Reading location - IP/workstation name: [facility]
[2018-08-16 17:01] VITALS: BP 159/61
--- NOTE | 2018-08-16 21:07 | EKG REPORT ---
SEVERITY:- BORDERLINE ECG - SINUS RHYTHM BORDERLINE R WAVE PROGRESSION, ANTERIOR LEADS : Confirmed by: Sun Baez MD 16-Aug-2018 21:05:36
== END 2018-08-16 18:09 | disposition home or self-care (01) ==
LOC: ER 12:05
DX: H54.62 Unqualified visual loss, left eye, normal vision right eye (principal); Z87.891 Personal history of nicotine dependence; I25.10 Atherosclerotic heart disease of native coronary artery without angina pectoris; I10 Essential (primary) hypertension; J44.9 Chronic obstructive pulmonary disease, unspecified; E11.9 Type 2 diabetes mellitus without complications; Z79.4 Long term (current) use of insulin
CPT/HCPCS: 36415; 70450; 70551; 71045; 80053; 84484; 85025; 85652; 86140; 93005; 93010; 99285

== ENCOUNTER → 2018-08-23 | Outpatient (CLI) | payer MEDICARE, MEDICAID ==
--- NOTE | 2018-08-24 09:10 | WOMENS IMAGING REPORT ---
EXAM DESCRIPTION: 3D SCREENING MAMMO BILAT COMPLETED DATE/TIME: 08/23/2018 3:34 pm REASON FOR STUDY: ROUTINE BILATERAL SCREENING;Z12.31 Z12.31 ENCNTR SCREEN MAMMOGRAM FOR MALIGNANT N EOPLASM OF GRACE COMPARISON: 08/17/2017 and 08/16/2016. TECHNIQUE: Standard craniocaudal and mediolateral oblique views of each breast recorded using digita l acquisition and breast tomosynthesis. LIMITATIONS: None. FINDINGS: No masses, calcifications or architectural distortion. No areas of suspicion. Read with the assistance of CAD. .[facility] - R2 [employer] Version 1.3 .[facility] - R2 [employer] Version 1.3 .[facility] - R2 C[employer] Version 2.4 .[facility] - R2 Cenova Version 2.4 .[facility] - R2 [employer] Doctor Version 9.2 IMPRESSION: NORMAL MAMMOGRAM. BIRADS 1. BREAST DENSITY: b. There are scattered areas of fibroglandular density. BIRAD: 1 NEGATIVE RECOMMENDATION: ROUTINE SCREENING COMMENT: The patient has been notified of the results by letter per SA requirements. Additional no tification policies are in place for contacting patient with suspicious or incomplete findings. Quality ID #[id number]: The [employer] recommends an annual screening mammogram for women aged 40 years or over. This facility utilizes a reminder system to ensure that all patients receive reminder letters, and/or direct phone calls for appointments. This includes reminders for routine scr eening mammograms, diagnostic mammograms, or other Breast Imaging Interventions when appropriate. Th is patient will be placed in the appropriate reminder system. The [employer] (ACR) has developed recommendations for screening MRI of the breast s in certain patient populations, to be used in conjunction with mammography. Breast MRI surveillanc e may be appropriate for women with more than 20% lifetime risk of developing breast cancer as deter mined by genetic testing, significant family history of the disease, or history of mantle radiation f or Hodgkins Disease. ACR Practice Guidelines 2008. DBT Technology DBT is a type of tomographic mammography. With conventional mammography, overlapping breast tissue ma y make lesions difficult to detect, even with good compression. DBT uses an x-ray tube that rotates a round the breast, taking images at different angles. These images are then combined to create thin sl ices of the breast that the radiologist can view as a 3D reconstruction. The [employer] unit can perform full-field digital mammograms (2D imaging); or DBT (3D imaging); or both, in a combination mode that quickly performs both the mammogram and the tomosynthesis scan while the breast is still compressed. PQRS 6045F: Fluoroscopic imaging is not utilized for breast tomosynthesis. TECHNICAL DOCUMENTATION: FINDING NUMBER: (1) ASSESSMENT: (1) JOB ID: [id number] [employer]- All Rights Reserved Reading location - IP/workstation name: [facility]
== END ==
LOC: WI 15:18
PROVIDERS: ATTEND Internal Medicine Geriatric Medicine
DX: Z12.31 Encounter for screening mammogram for malignant neoplasm of breast (principal)
CPT/HCPCS: 77063; 77067

== ENCOUNTER 2018-11-27 19:01 | Emergency (ER) | payer MEDICARE, MEDICAID ==
[2018-11-27] MEDS ORDERED: ASPIRIN 81 MG TABLET, CHEWABLE PO ONE (20:45)
[2018-11-27] MEDS ORDERED: ACETAMINOPHEN 325 MG TABLET PO ONE (20:48)
--- NOTE | 2018-11-27 20:48 | ER Document Report ---
ED Medical Screen (RME) - General Chief Complaint: Chest Pain Stated Complaint: CHEST PAIN Time Seen by Provider: 11/27/18 20:45 Primary Care Provider: DANIELA ANDERSEN MD [Primary Care Provider] - Follow up as needed Notes: Pt present with CP on and off for the last 2 days. Cough, congestion, fever in ED. H/O stents "feels like my last heart attack." I have greeted and performed a rapid initial assessment of this patient. A comprehensive ED assessment and evaluation of the patient, analysis of test results and completion of the medical decision making process will be conducted by additional ED providers. TRAVEL OUTSIDE OF THE [place] IN LAST 30 DAYS: No - Related Data Allergies/Adverse Reactions: codeine [Codeine] Allergy (Verified 08/17/17 21:44) Past Medical History - Past Medical History Cardiac Medical History: Reports: Hx Coronary Artery Disease, Hx Hypercholest erolemia, Hx Hypertension Pulmonary Medical History: Reports: Hx COPD Denies: Hx Tuberculosis Neurological Medical History: Reports: Hx Cerebrovascular Accident - with residual left face mild weakness. Denies: Hx Seizures Endocrine Medical History: Reports: Hx Diabetes Mellitus Type 1, Hx Diabetes Mellitus Type 2 - With insulin Renal/ Medical History: Denies: Hx Peritoneal Dialysis GI Medical History: Reports: Hx Gastroesophageal Reflux Disease Musculoskeltal Medical History: Reports Hx Arthritis, Reports Hx Muscle Weakness Psychiatric Medical History: Reports: Hx Depression Past Surgical History: Reports: Hx Cardiac Surgery - cardiac stents, Hx Hysterectomy, Hx Tonsillectomy. Denies: Hx Pacemaker - Immunizations Hx Diphtheria, Pertussis, Tetanus Vaccination: No Physical Exam - Vital signs Vitals: Temp Pulse Resp BP Pulse Ox 101.3 F H 94 20 176/139 H 96 11/27/18 19:16 11/27/18 19:16 11/27/18 19:16 11/27/18 19:16 11/27/18 19:16 Course - Vital Signs Vital signs: Temp Pulse Resp BP Pulse Ox 101.3 F H 94 20 176/139 H 96 11/27/18 19:16 11/27/18 19:16 11/27/18 19:16 11/27/18 19:16 11/27/18 19:16 Doctor's Discharge - Discharge Referrals: DANIELA ANDERSEN MD [Primary Care Provider] - Follow up as needed
--- NOTE | 2018-11-27 21:26 | EKG REPORT ---
SEVERITY:- ABNORMAL ECG - SINUS RHYTHM PROBABLE LEFT ATRIAL ABNORMALITY LEFT VENTRICULAR HYPERTROPHY BORDERLINE T ABNORMALITIES, INFERIOR LEADS BORDERLINE PROLONGED QT INTERVAL : Confirmed by: Sun Baez MD 27-Nov-2018 21:25:11
--- NOTE | 2018-11-27 21:33 | RADIOLOGY REPORT (SQ) ---
XR CHEST 1 VIEW HISTORY: CP. COMPARISON: 08/16/2018 FINDINGS: The heart size is normal. No consolidation, pleural effusion, or pneumothorax is seen. There are no acute bony findings. IMPRESSION: No evidence of acute cardiopulmonary disease.
[2018-11-28] MEDS ORDERED: ONDANSETRON HCL INJ/PF 4 MG/2 ML SDV IV ONE (00:46)
[2018-11-28] MEDS ORDERED: ASPIRIN 81 MG TABLET, CHEWABLE ONE (01:09)
[2018-11-28] MEDS ORDERED: ACETAMINOPHEN 325 MG TABLET ONE (01:09)
[2018-11-28 01:11] LABS: ABSOLUTE LYMPHOCYTES (AUTO) 1.3 10^3/uL (0.5-4.7); ABSOLUTE MONOCYTES (AUTO) 0.6 10^3/uL (0.1-1.4); BASOPHILS % (AUTO) 0.8 % (0-2); EOSINOPHILS % (AUTO) 0.1 % (0-6); HEMATOCRIT 35.6 % (36.0-47.0); HEMOGLOBIN 11.9 g/dL (12.0-15.5); LYMPHOCYTES % (AUTO) 33.5 % (13-45); MEAN CORPUSCULAR HEMOGLOBIN 29.5 pg (27.0-33.4); MEAN CORPUSCULAR HGB CONC 33.5 g/dL (32.0-36.0); MEAN CORPUSCULAR VOLUME 88 fl (80-97); MONOCYTES % (AUTO) 16.1 % (3-13); PLATELET COUNT 168 10^3/uL (150-450); RED BLOOD COUNT 4.04 10^6/uL (3.72-5.28); RED CELL DISTRIBUTION WIDTH 14.4 % (11.5-14.0); SEGMENTED NEUTROPHILS % (AUTO) 49.5 % (42-78); TOTAL CELLS COUNTED % (AUTO) 100 %
[2018-11-28 01:24] LABS: ALANINE AMINOTRANSFERASE 24 U/L (9-52); ALBUMIN 4.5 g/dL (3.5-5.0); ALKALINE PHOSPHATASE 52 U/L (38-126); ANION GAP 13 (5-19); ASPARTATE AMINO TRANSFERASE 25 U/L (14-36); BILIRUBIN,DIRECT 0.2 mg/dL (0.0-0.4); BILIRUBIN,TOTAL 1.6 mg/dL (0.2-1.3); BLOOD UREA NITROGEN 21 mg/dL (7-20); CALCIUM 10.3 mg/dL (8.4-10.2); CARBON DIOXIDE 29 mmol/L (22-30); CHLORIDE 96 mmol/L (98-107); CREATINE KINASE 110 U/L (30-135); GLUCOSE 114 mg/dL (75-110); POTASSIUM 3.4 mmol/L (3.6-5.0); SODIUM 138.2 mmol/L (137-145); TOTAL PROTEIN 8.4 g/dL (6.3-8.2)
[2018-11-28 01:34] LABS: CREATINE KINASE MB 0.27 ng/mL (<4.55)
[2018-11-28] MEDS ORDERED: RINGERS SOLUTION,LACTATED 1,000 ML IV ONE (01:36)
[2018-11-28 01:38] LABS: TROPONIN I 0.12 ng/mL
[2018-11-28 01:50] LABS: A TYPE INFLUENZA AG NEGATIVE (NEGATIVE); B INFLUENZA AG NEGATIVE (NEGATIVE)
[2018-11-28 02:13] LABS: INTERNATIONAL RATION (INR) 1.04; PROTHROMBIN TIME 14.1 SEC (11.4-15.4)
[2018-11-28 02:26] LABS: VENOUS BLOOD BASE EXCESS 3.9 mmol/L; VENOUS BLOOD PCO2 40.4 mmHg (35-63); VENOUS BLOOD PH 7.46 (7.30-7.42)
[2018-11-28 02:39] LABS: APPEARANCE,URINE SLIGHTLY-CLOUDY; BILIRUBIN,URINE NEGATIVE (NEGATIVE); COLOR,URINE YELLOW; GLUCOSE, URINE NEGATIVE (NEGATIVE); KETONES,URINE TRACE mg/dL (NEGATIVE); LEUKOCYTE ESTERASE,URINE NEGATIVE (NEGATIVE); NITRITE,URINE NEGATIVE (NEGATIVE); PROTEIN,URINE 30 mg/dL (NEGATIVE); URINE SPECIFIC GRAVITY 1.019; UROBILINOGEN,URINE NEGATIVE mg/dL (<2.0)
[2018-11-28] MEDS: NITROGLYCERIN 0.4 MG/TAB 25 TAB/BOTTLE SL PRN ×3 (02:49→03:15)
[2018-11-28] MEDS ORDERED: FAMOTIDINE INJ/PF 20 MG/2 ML SDV IV ONE (03:34)
[2018-11-28] MEDS ORDERED: METOCLOPRAMIDE HCL INJ/PF 10 MG/2 ML SDV IV ONE (03:57)
--- NOTE | 2018-11-28 05:27 | RADIOLOGY REPORT (SQ) ---
EXAM DESCRIPTION: CT HEAD WITHOUT IV CONTRAST COMPLETED DATE/TME: 11/28/2018 03:35 CLINICAL HISTORY: 73 years Female, confusion COMPARISON: 08/16/18 TECHNIQUE: No contrast. Coronal and sagittal reformat. This exam was performed according to our departmental dose-optimization program, which includes automated exposure control, adjustment of the mA and/or kV according to patient size and/or use of iterative reconstruction technique. FINDINGS: No hemorrhage. Moderate encephalomalacia/gliosis of the left frontoparietal lobe, stable. No mass, mass effect, or midline shift. Atherosclerosis. Parenchymal volume loss. Brain and extra-axial structures appear otherwise intact. IMPRESSION: No acute findings. Stable left frontal infarct pattern.
--- NOTE | 2018-11-28 05:48 | RADIOLOGY REPORT (SQ) ---
EXAM DESCRIPTION: CT CHEST ANGIOGRAPHY WITHOUT THEN WITH IV CONTRAST, CT ABDOMEN PELVIS WITH IV CONTRAST COMPLETED DATE/TME: 11/28/2018 03:57 (accession [id number]), 11/28/2018 03:04 (accession [id number]) CLINICAL HISTORY: 73 years Female, tachy/SOB Comparison: None. Technique: IV contrast. Coronal and sagittal reformat. 3d reconstruction. This exam was performed according to our departmental dose-optimization program, which includes automated exposure control, adjustment of the mA and/or kV according to patient size and/or use of iterative reconstruction technique.[facility]: Dose Right [facility]: CareDose [facility]: Dose Right [facility]: Teradose 4D [facility]: [employer] LIMITATIONS: None Findings: No pulmonary embolus. No right ventricular strain. Clear lungs. Atherosclerotic vascular disease. Osteoarthritis. Cardiac enlargement. Likely benign renal cyst(s), not definitively characterized. 0.3 cm degenerative grade 1 L4 anterolisthesis. Diffuse prominence of the left adrenal gland. Small calcification of the left adrenal gland suggestive of prior infectious or inflammatory insult. Large bowel fluid retention. No ascites. Normal appendix. No gross evidence of gallbladder inflammation or hepatobiliary obstruction. No bowel obstruction. Inferior neck, axillae, mediastinum, lungs, airway, heart, liver, gallbladder, pancreas, spleen, adrenals, renal system, gastrointestinal tract, pelvic organs, lymphatics, vasculature, and musculoskeleton appear otherwise unremarkable. Impression: No pulmonary embolus. No acute thoracic, abdominal, or pelvic findings.
--- NOTE | 2018-11-28 05:48 | RADIOLOGY REPORT (SQ) ---
EXAM DESCRIPTION: CT CHEST ANGIOGRAPHY WITHOUT THEN WITH IV CONTRAST, CT ABDOMEN PELVIS WITH IV CONTRAST COMPLETED DATE/TME: 11/28/2018 03:57 (accession [id number]), 11/28/2018 03:04 (accession [id number]) CLINICAL HISTORY: 73 years Female, tachy/SOB Comparison: None. Technique: IV contrast. Coronal and sagittal reformat. 3d reconstruction. This exam was performed according to our departmental dose-optimization program, which includes automated exposure control, adjustment of the mA and/or kV according to patient size and/or use of iterative reconstruction technique.[facility]: Dose Right [facility]: CareDose [facility]: Dose Right [facility]: Teradose 4D [facility]: [employer] LIMITATIONS: None Findings: No pulmonary embolus. No right ventricular strain. Clear lungs. Atherosclerotic vascular disease. Osteoarthritis. Cardiac enlargement. Likely benign renal cyst(s), not definitively characterized. 0.3 cm degenerative grade 1 L4 anterolisthesis. Diffuse prominence of the left adrenal gland. Small calcification of the left adrenal gland suggestive of prior infectious or inflammatory insult. Large bowel fluid retention. No ascites. Normal appendix. No gross evidence of gallbladder inflammation or hepatobiliary obstruction. No bowel obstruction. Inferior neck, axillae, mediastinum, lungs, airway, heart, liver, gallbladder, pancreas, spleen, adrenals, renal system, gastrointestinal tract, pelvic organs, lymphatics, vasculature, and musculoskeleton appear otherwise unremarkable. Impression: No pulmonary embolus. No acute thoracic, abdominal, or pelvic findings.
[2018-11-28] MEDS ORDERED: NITROGLYCERIN 5 MG (0.2 MG/HR) PATCH.TD24 TD ONE (06:01)
--- NOTE | 2018-11-28 06:19 | ER Document Report ---
ED General - General Chief Complaint: Chest Pain Stated Complaint: CHEST PAIN Time Seen by Provider: 11/27/18 20:45 Primary Care Provider: DANIELA ANDERSEN MD [Primary Care Provider] - Follow up as needed Notes: Patient is a 73-year-old female presents to the emergency department for generalized chest pain intermittently for the last couple of days. Patient states that time the pain does go into her left shoulder starts in the center of her chest sharp is nature. Patient is also complaining of generalized URI symptoms. Patient is denying taking her at home nitroglycerin or taking any aspirin. Past medical history: Coronary artery disease with stent placement, atrial fibrillation, hypertension, hyperlipidemia Medications: Aspirin, Plavix, nitroglycerin, Lipitor, meloxicam, metoprolol, Diovan allergies: None TRAVEL OUTSIDE OF THE [place] IN LAST 30 DAYS: No - Related Data Allergies/Adverse Reactions: codeine [Codeine] Allergy (Verified 08/17/17 21:44) Past Medical History - General Information source: Patient - Social History Smoking Status: Never Smoker Chew tobacco use (# tins/day): No Frequency of alcohol use: None Drug Abuse: None Family History: Reviewed & Not Pertinent Patient has suicidal ideation: No Patient has homicidal ideation: No - Past Medical History Cardiac Medical History: Reports: Hx Coronary Artery Disease, Hx Hypercholesterolemia, Hx Hypertension Pulmonary Medical History: Reports: Hx COPD Denies: Hx Tuberculosis Neurological Medical History: Reports: Hx Cerebrovascular Accident - with residual left face mild weakness. Denies: Hx Seizures Endocrine Medical History: Reports: Hx Diabetes Mellitus Type 1, Hx Diabetes Mellitus Type 2 - With insulin Renal/ Medical History: Denies: Hx Peritoneal Dialysis GI Medical History: Reports: Hx Gastroesophageal Reflux Disease Musculoskeletal Medical History: Reports Hx Arthritis, Reports Hx Muscle Weakness Psychiatric Medical History: Reports: Hx Depression Past Surgical History: Reports: Hx Cardiac Surgery - cardiac stents, Hx Hysterectomy, Hx Tonsillectomy. Denies: Hx Pacemaker - Immunizations Hx Diphtheria, Pertussis, Tetanus Vaccination: No Hx Pneumococcal Vaccination: 09/05/07 Review of Systems - Review of Systems Constitutional: See HPI EENT: See HPI Cardiovascular: See HPI Respiratory: See HPI Gastrointestinal: See HPI Genitourinary: No symptoms reported Female Genitourinary: No symptoms reported Musculoskeletal: No symptoms reported Skin: No symptoms reported Hematologic/Lymphatic: No symptoms reported Neurological/Psychological: No symptoms reported Physical Exam - Vital signs Vitals: Temp Pulse Resp BP Pulse Ox 101.3 F H 94 20 176/139 H 96 11/27/18 19:16 11/27/18 19:16 11/27/18 19:16 11/27/18 19:16 11/27/18 19:16 - Notes Notes: GENERAL: Alert, interacts well. No acute distress. HEAD: Normocephalic, atraumatic. EYES: Pupils equal, round, and reactive to light. Extraocular movements intact. ENT: Oral mucosa moist, tongue midline. NECK: Full range of motion. Supple. Trachea midline. LUNGS: Clear to auscultation bilaterally, no wheezes, rales, or rhonchi. No respiratory distress. HEART: Regular rate and rhythm. No murmur ABDOMEN: Soft, non-tender. Non-distended. Bowel sounds present in all 4 quadrants. EXTREMITIES: Moves all 4 extremities spontaneously. No edema, normal radial and dorsalis pedis pulses bilaterally. No cyanosis. BACK: no cervical, thoracic, lumbar midline tenderness. No saddle anesthesia, normal distal neurovascular exam. NEUROLOGICAL: Alert and oriented x3. Speech but not slurred, patient at baseline per daughter.. cranial nerves II through XII grossly intact PSYCH: Normal affect, normal mood. SKIN: Warm, dry, normal turgor. No rashes or lesions noted. Course - Re-evaluation Re-evalutation: Patient is a 73-year-old female who initially presents for intermittent chest pain for the last couple of days. She does presents the emergency department as febrile. Patient was treated with antipyretics and has remained afebrile throughout her stay in the emergency department. Patient has had multiple episodes of vomiting in the emergency department despite treatments. CT abdomen pelvis ordered showing no abnormalities. CT head ordered due to patient's speech. Family in room states patient typically has garbled speech but is able to be understand. Daughter states that it has been "more so than normal." In the last [address] shows no abnormalities. Throughout patient stay in the emergency department she was intermittently tachycardic and in and out of atrial fibrillation. At one point time she stated she was feeling short of breath. Noted to be in A. fib at a rate of 115. CTA chest ordered. CTA showed no signs of pulmonary embolus. Patient was treated with 3 sublingual nitroglycerin. After second sublingual nitroglycerin was noted to have a short episode of hypotension, fluid resuscitated. Despite 3 sublingual nitroglycerin patient's chest pain continues to be a 2 out of 5. Nitropaste was ordered and applied. Patient's labs show no signs of leukocytosis, no signs of urinary tract i nfection, influenza test negative, chest x-ray shows no signs of pneumonia. Patient's initial troponin was noted to be 0.120. Patient's initial EKG upon arrival to the emergency department notes a sinus rhythm at a rate of 94, QTc 486, no ST segment elevations or depressions noted. As patient was in and out of atrial fibrillation a repeat EKG was ordered. Shows a rate of 116 atrial fibrillation QTC [address] segment elevations or depressions. Due to patient's continued chest pain despite treatments, NSTEMI, she will need to be transferred to another facility. 11/28/18 06:[address] Andrews at [facility] who will accept the pt. for continued care, NSTEMI. 11/28/18 06:38 Patient's current heart rate is 84, sinus rhythm, SPO2 95%, respiratory rate 14, blood pressure 139/77. 11/28/18 07:17 Repeat EKG shows a sinus rhythm rate of 82, QTc 463, no ST segment elevations or depressions noted. 11/28/18 07:51 Current vital signs heart rate 83, normal sinus rhythm, respiratory rate 15, SPO2 97% on room air, blood pressure 122/56,. Patient continues with 2 out of 5 generalized chest pain despite treatments. Stable for transport. - Vital Signs Vital signs: Temp Pulse Resp BP Pulse Ox 98.5 F 92 14 137/61 H 97 11/28/18 07:58 11/28/18 00:31 11/28/18 08:01 11/28/18 08:01 11/28/18 08:01 - Laboratory Result Diagrams: 11/28/18 00:45 11/28/18 00:45 Laboratory results interpreted by me: 11/28/18 11/28/18 11/28/18 00:45 00:45 02:00 Hgb 11.9 L Hct 35.6 L RDW 14.4 H Monocytes % 16.1 H VBG pH 7.46 H Potassium 3.4 L Chloride 96 L BUN 21 H Glucose 114 H Calcium 10.3 H Total Bilirubin 1.6 H Total Protein 8.4 H Urine Protein Urine Ketones Urine Blood 11/28/18 02:05 Hgb Hct RDW Monocytes % VBG pH Potassium Chloride BUN Glucose Calcium Total Bilirubin Total Protein Urine Protein 30 H Urine Ketones TRACE H Urine Blood MODERATE H Discharge - Discharge Clinical Impression: NSTEMI (non-ST elevated myocardial infarction) Condition: Stable Disposition: [facility] Admitting Provider: Hospitalist - Dr. Christensen Referrals: DANIELA ANDERSEN MD [Primary Care Provider] - Follow up as needed
[2018-11-28 08:09] VITALS: BP 137/61
--- NOTE | 2018-11-28 09:51 | EKG REPORT ---
SEVERITY:- ABNORMAL ECG - ATRIAL FIBRILLATION, V-RATE 83-152 PROBABLE LVH WITH SECONDARY REPOL ABNRM PROBABLE INFERIOR INFARCT, AGE INDETERMINATE PROLONGED QT INTERVAL : Confirmed by: Sun Baez MD 28-Nov-2018 09:50:02
--- NOTE | 2018-11-28 09:51 | EKG REPORT ---
SEVERITY:- BORDERLINE ECG - SINUS RHYTHM ATRIAL PREMATURE COMPLEX PROBABLE LEFT ATRIAL ABNORMALITY BORDERLINE T ABNORMALITIES, INFERIOR LEADS : Confirmed by: Sun Baez MD 28-Nov-2018 09:49:57
== END 2018-11-28 08:10 | disposition short-term general hospital (02) ==
LOC: ER 19:01
DX: I21.4 Non-ST elevation (NSTEMI) myocardial infarction (principal); R07.9 Chest pain, unspecified; R11.10 Vomiting, unspecified; R47.9 Unspecified speech disturbances; I95.9 Hypotension, unspecified; R06.02 Shortness of breath; I25.10 Atherosclerotic heart disease of native coronary artery without angina pectoris; I48.91 Unspecified atrial fibrillation; I10 Essential (primary) hypertension; E78.5 Hyperlipidemia, unspecified; Z79.01 Long term (current) use of anticoagulants; Z79.82 Long term (current) use of aspirin; Z88.6 Allergy status to analgesic agent; Z90.710 Acquired absence of both cervix and uterus; I69.392 Facial weakness following cerebral infarction
CPT/HCPCS: 93005 ×2; 99285; 96361; 96374; 96375; 36415; 87040; 87086; 82553; 82550; 85025; 85610; 80053; 81001; 84484; 82803; 83605; 87804; 71045; 70450; 71275; 74177; 93010 ×2; A9270 ×2; J2765; J3490; J2405; J7120; S0028

== ENCOUNTER 2019-07-04 12:56 | Observation (INO) | payer MEDICARE, MEDICAID ==
--- NOTE | 2019-07-04 13:05 | ER Document Report ---
ED Medical Screen (RME) - General Chief Complaint: S/S of Possible Stroke Stated Complaint: POSSIBLE STROKE Time Seen by Provider: 07/04/19 13:01 Primary Care Provider: DANIELA ANDERSEN MD [Primary Care Provider] - Follow up as needed Mode of Arrival: Wheelchair Information source: Patient, Relative Notes: 74-year-old female with history of strokes presents to the emergency department with reports of slurred speech difficulty walking and panting for the past week. Daughter reports, via the phone, that symptoms seem to be worse last night and this morning. The niece went to see patient this morning and reports that she seems a lot worse. Patient is taking Xarelto. Patient has slurred speech and difficulty sitting up. I have greeted and performed a rapid initial assessment of this patient. A comprehensive ED assessment and evaluation of the patient, analysis of test results and completion of the medical decision making process will be conducted by additional ED providers. Dictation of this chart was performed using voice recognition software; therefore, there may be some unintended grammatical errors. TRAVEL OUTSIDE OF THE [place] IN LAST 30 DAYS: No - Related Data Allergies/Adverse Reactions: codeine [Codeine] Allergy (Verified 08/17/17 21:44) Past Medical History - Past Medical History Cardiac Medical History: Reports: Hx Coronary Artery Disease, Hx Hypercholesterolemia, Hx Hypertension Pulmonary Medical History: Reports: Hx COPD Denies: Hx Tuberculosis Neurological Medical History: Reports: Hx Cerebrovascular Accident - with residual left face mild weakness. Denies: Hx Seizures Endocrine Medical History: Reports: Hx Diabetes Mellitus Type 1, Hx Diabetes Mellitus Type 2 - With insulin Renal/ Medical History: Denies: Hx Peritoneal Dialysis GI Medical History: Reports: Hx Gastroesophageal Reflux Disease Musculoskeltal Medical History: Reports Hx Arthritis, Reports Hx Muscle Weakness Psychiatric Medical History: Reports: Hx Depression Past Surgical History: Reports: Hx Cardiac Surgery - cardiac stents, Hx Hysterectomy, Hx Tonsillectomy. Denies: Hx Pacemaker - Immunizations Hx Diphtheria, Pertussis, Tetanus Vaccination: No Doctor's Discharge - Discharge Referrals: DANIELA ANDERSEN MD [Primary Care Provider] - Follow up as needed
[2019-07-04 13:44] LABS: INTERNATIONAL RATION (INR) 1.55
[2019-07-04 13:45] LABS: PARTIAL THROMBOPLASTIN TIME 32.9 SEC (23.5-35.8)
[2019-07-04 13:46] LABS: ABSOLUTE EOSINOPHILS # (AUTO) 0.2 10^3/uL (0.0-0.6); ABSOLUTE LYMPHOCYTES (AUTO) 0.9 10^3/uL (0.5-4.7); ABSOLUTE MONOCYTES (AUTO) 0.4 10^3/uL (0.1-1.4); ABSOLUTE NEUT (AUTO) 2.2 10^3/uL (1.7-8.2); HEMATOCRIT 23.1 % (36.0-47.0); LYMPHOCYTES % (AUTO) 24.5 % (13-45); MEAN CORPUSCULAR HEMOGLOBIN 24.7 pg (27.0-33.4); MEAN CORPUSCULAR HGB CONC 32.1 g/dL (32.0-36.0); MEAN CORPUSCULAR VOLUME 77 fl (80-97); MONOCYTES % (AUTO) 9.7 % (3-13); PLATELET COUNT 215 10^3/uL (150-450); SEGMENTED NEUTROPHILS % (AUTO) 58.8 % (42-78); TOTAL CELLS COUNTED % (AUTO) 100 %; WHITE BLOOD COUNT 3.8 10^3/uL (4.0-10.5)
[2019-07-04 13:47] LABS: PROTHROMBIN TIME 18.7 SEC (11.4-15.4)
[2019-07-04 13:49] LABS: HEMOGLOBIN 7.4 g/dL (12.0-15.5)
--- NOTE | 2019-07-04 13:57 | RADIOLOGY REPORT (SQ) ---
EXAM DESCRIPTION: CT HEAD WITHOUT COMPLETED DATE/TIME: 07/04/2019 1:15 pm REASON FOR STUDY: AMS, Slurred speech COMPARISON: 11/28/2018 TECHNIQUE: Axial images acquired through the brain without intravenous contrast. Images reviewed wi th bone, brain and subdural windows. Additional sagittal and coronal reconstructions were generated. Images stored on PACS. All CT scanners at this facility use dose modulation, iterative reconstruction, and/or weight based d osing when appropriate to reduce radiation dose to as low as reasonably achievable (ALARA). [facility]: Dose Right [facility]: CareDose [facility]: Dose Right [facility]: Teradose 4D [facility]: Smart eSoft RADIATION DOSE: CT Rad equipment meets quality standard of care and radiation dose reduction techniq ues were employed. CTDIvol: 53.2 mGy. DLP: 991 mGy-cm. mGy. LIMITATIONS: None. FINDINGS: VENTRICLES: Normal size and contour. CEREBRUM: No masses. No hemorrhage. No midline shift. No evidence for acute infarction. Unchanged left MCA territory encephalomalacia. CEREBELLUM: No masses. No hemorrhage. No alteration of density. No evidence for acute infarction. EXTRAAXIAL SPACES: No fluid collections. No masses. ORBITS AND GLOBE: No intra- or extraconal masses. Normal contour of globe without masses. CALVARIUM: No fracture. PARANASAL SINUSES: No fluid or mucosal thickening. SOFT TISSUES: No mass or hematoma. OTHER: No other significant finding. IMPRESSION: No acute intracranial pathology. Unchanged left MCA territory encephalomalacia in keepi ng with prior infarction. Consider MRI to more sensitively evaluate for acutely superimposed diffusi on restricting infarction. EVIDENCE OF ACUTE STROKE: NO. COMMENT: Quality ID # [id number]: Final reports with documentation of one or more dose reduction techniques (e.g., Automated exposure control, adjustment of the mA and/or kV according to patient size, use of iterative reconstruction technique) TECHNICAL DOCUMENTATION: JOB ID: [id number] [employer]- All Rights Reserved Reading location - IP/workstation name: [email or web address]
--- NOTE | 2019-07-04 13:58 | RADIOLOGY REPORT (SQ) ---
EXAM DESCRIPTION: CHEST SINGLE VIEW COMPLETED DATE/TIME: 07/04/2019 1:26 pm REASON FOR STUDY: AMS, Slurred speech COMPARISON: 11/27/2018 EXAM PARAMETERS: NUMBER OF VIEWS: One view. TECHNIQUE: Single frontal radiographic view of the chest acquired. RADIATION DOSE: NA LIMITATIONS: None. FINDINGS: LUNGS AND PLEURA: No opacities, masses or pneumothorax. No pleural effusion. MEDIASTINUM AND HILAR STRUCTURES: No masses. Contour normal. HEART AND VASCULAR STRUCTURES: Heart normal in size. Unfolded atherosclerotic thoracic aorta. BONES: No acute findings. HARDWARE: None in the chest. OTHER: No other significant finding. IMPRESSION: NO ACUTE RADIOGRAPHIC FINDING IN THE CHEST. TECHNICAL DOCUMENTATION: JOB ID: [id number] [email or web address]- All Rights Reserved Reading location - IP/workstation name: [email or web address]
[2019-07-04] MEDS ORDERED: NORMAL SALINE 250 ML IV PRN (14:01)
[2019-07-04 14:12] LABS: ALBUMIN 3.9 g/dL (3.5-5.0); ALKALINE PHOSPHATASE 63 U/L (38-126); ANION GAP 8 (5-19); ASPARTATE AMINO TRANSFERASE 18 U/L (14-36); BILIRUBIN,DIRECT 0.1 mg/dL (0.0-0.4); BILIRUBIN,TOTAL 0.3 mg/dL (0.2-1.3); BLOOD UREA NITROGEN 19 mg/dL (7-20); CALCIUM 9.1 mg/dL (8.4-10.2); CARBON DIOXIDE 26 mmol/L (22-30); CHLORIDE 106 mmol/L (98-107); CREATINE KINASE 61 U/L (30-135); GLUCOSE 91 mg/dL (75-110); TOTAL PROTEIN 7.3 g/dL (6.3-8.2)
[2019-07-04 14:28] LABS: TROPONIN I < 0.012 ng/mL
[2019-07-04 14:30] LABS: CREATINE KINASE MB 0.24 ng/mL (<4.55)
--- NOTE | 2019-07-04 14:55 | ER Document Report ---
ED General - General Chief Complaint: Altered Mental Status Stated Complaint: POSSIBLE STROKE Time Seen by Provider: 07/04/19 13:01 Primary Care Provider: DANIELA ANDERSEN MD [Primary Care Provider] - Follow up as needed Mode of Arrival: Wheelchair Information source: Patient, Relative TRAVEL OUTSIDE OF THE [place] IN LAST 30 DAYS: No - HPI Notes: Patient was brought to the hospital by [email or web address]. Niece states that the patient has been acting differently over the last several days. She has been leaning to one side as well as having more trouble than normal with speech. Patient has a previous stroke. Exactly what deficits are from this previous stroke are unclear. But niece states that the patient is having worse symptoms this week. Niece did not stay with the patient. After she spoke to the triage nurse she left. I have tried to call both numbers in the demographics. One number states that there is no voicemail available. The other number just rings with no one picking up. Patient is not a good historian. She does tell me that she has had some trouble speaking but is unable to tell me if this is a new problem. She also states that she has some weakness from her previous stroke but is unable to tell me where this weakness is. Patient's symptoms appear moderate. There does not appear to be any radiation of symptoms. Symptoms appear to be constant. There is nothing known that makes them better or worse. The symptoms seem to consist of altered mental status, trouble speaking, and some truncal ataxia. - Related Data Allergies/Adverse Reactions: codeine [Codeine] Allergy (Verified 08/17/17 21:44) Past Medical History - General Information source: Patient, Relative - Social History Smoking Status: Never Smoker Chew tobacco use (# tins/day): No Frequency of alcohol use: None Drug Abuse: None Family History: Reviewed & Not Pertinent Patient has suicidal ideation: No Patient has homicidal ideation: No - Past Medical History Cardiac Medical History: Reports: Hx Coronary Artery Disease, Hx Hypercholesterolemia, Hx Hypertension Pulmonary Medical History: Reports: Hx COPD Denies: Hx Tuberculosis Neurological Medical History: Reports: Hx Cerebrovascular Accident - with residual left face mild weakness. Denies: Hx Seizures Endocrine Medical History: Reports: Hx Diabetes Mellitus Type 1, Hx Diabetes Mellitus Type 2 - With insulin Renal/ Medical History: Denies: Hx Peritoneal Dialysis GI Medical History: Reports: Hx Gastroesophageal Reflux Disease Musculoskeletal Medical History: Reports Hx Arthritis, Reports Hx Muscle Weakness Psychiatric Medical History: Reports: Hx Depression Past Surgical History: Reports: Hx Cardiac Surgery - cardiac stents, Hx Hysterectomy, Hx Tonsillectomy. Denies: Hx Pacemaker - Immunizations Hx Diphtheria, Pertussis, Tetanus Vaccination: No Hx Pneumococcal Vaccination: 09/05/07 Review of Systems - Review of Systems Constitutional: Weakness. denies: Fever Cardiovascular: denies: Chest pain, Palpitations Respiratory: denies: Cough, Short of breath Gastrointestinal: denies: Diarrhea, Vomiting -: Yes All other systems reviewed and negative Physical Exam - Vital signs Vitals: Pulse Resp BP Pulse Ox 52 L 23 H 166/79 H 100 07/04/19 13:01 07/04/19 13:01 07/04/19 13:01 07/04/19 13:01 Interpretation: Hypertensive - General General appearance: Appears well, Alert In distress: None - HEENT Head: Normocephalic, Atraumatic Eyes: Normal Pupils: PERRL - Respiratory Respiratory status: No respiratory distress Chest status: Nontender Breath sounds: Normal Chest palpation: Normal - Cardiovascular Rhythm: Regular Heart sounds: Normal auscultation Murmur: No - Abdominal Inspection: Normal Distension: No distension Bowel sounds: Normal Tenderness: Nontender Organomegaly: No organomegaly - Rectal Tenderness: No Stool: Heme negative Hemorrhoids: None - Back Back: Normal, Nontender - Extremities General upper extremity: Normal inspection, Nontender, Normal color, Normal ROM, Normal temperature General lower extremity: Normal inspection, Nontender, Normal color, Normal ROM, Normal temperature, Normal weight bearing. No: Yariel's sign - Neurological Neuro grossly intact: Yes Orientation: Disoriented to time [place] Coma Scale Eye Opening: Spontaneous [place] Coma Scale Verbal: Confused Raghav Coma Scale Motor: Obeys Commands Raghav Coma Scale Total: 14 Speech: Dysarthria Cranial nerves: Normal Cerebellar coordination: No: Finger-nose rhombey Motor strength normal: LUE, RUE, LLE, RLE Additional motor exam normals: Equal hand lacer. No: Pronator drift Sensory: Normal - Psychological Associated symptoms: Normal affect, Normal mood - Skin Skin Temperature: Warm Skin Moisture: Dry Skin Color: Normal Course - Re-evaluation Re-evalutation: 07/04/19 14:52 History is very difficult as patient is not a good historian. There is no family with the patient. I am unable to get a hold of family. Patient apparently has some new trouble speaking, some new weakness, and some questionable new confusion. CT shows no evidence of any new pathology. Patient also has a new anemia with a hemoglobin of approximately 7. She is heme- negative from below. No known sites of bleeding are identified. It seems most prudent to admit the patient for transfusion as well as possible MRI and further CVA evaluation. I have discussed the case with the patient's primary doctor, Dr. Andersen, who will admit the patient to the hospital. - Vital Signs Vital signs: Temp Pulse Resp BP Pulse Ox 98.0 F 52 L 23 H 177/69 H 100 07/04/19 13:26 07/04/19 14:45 07/04/19 14:45 07/04/19 14:45 07/04/19 14:45 - Laboratory Result Diagrams: 07/04/19 13:30 07/04/19 13:30 Laboratory results interpreted by me: 07/04/19 07/04/19 07/04/19 13:30 13:30 13:30 WBC 3.8 L RBC 3.00 L Hgb 7.4 L Hct 23.1 L MCV 77 L MCH 24.7 L RDW 17.0 H PT 18.7 H Est GFR ( Amer) 53 L Est GFR (MDRD) Non-Af 44 L Crossmatch 07/04/19 14:00 WBC RBC Hgb Hct MCV MCH RDW PT Est GFR ( Amer) Est GFR (MDRD) Non-Af Crossmatch See Detail - Diagnostic Test Radiology reviewed: Image reviewed, Reports reviewed Discharge - Discharge Clinical Impression: Dysarthria Anemia Qualifiers: Anemia type: iron deficiency Iron deficiency anemia type: unspecified iron deficiency Qualified Code(s): D50.9 - Iron deficiency anemia, unspecified Altered mental status Qualifiers: Altered mental status type: disorientation Qualified Code(s): R41.0 - Disorientation, unspecified Condition: Serious Disposition: ADMITTED INPATIENT Admitting Provider: Sonia Unit Admitted: [facility] Referrals: DANIELA ANDERSEN MD [Primary Care Provider] - Follow up as needed
--- NOTE | 2019-07-04 19:09 | EKG REPORT ---
SEVERITY:- BORDERLINE ECG - SINUS RHYTHM BORDERLINE R WAVE PROGRESSION, ANTERIOR LEADS BORDERLINE T ABNORMALITIES, INFERIOR LEADS : Confirmed by: Jhon Vázquez MD 04-Jul-2019 19:08:00
[2019-07-04] MEDS ORDERED: DEXTROSE 50%-WATER 25 GM/50 ML DISP.SYRIN IV PRN ×2 (19:22)
[2019-07-04] MEDS ORDERED: GLUCAGON,HUMAN RECOMB 1 MG INJ IM PRN (19:22)
[2019-07-04] MEDS ORDERED: DEXTROSE 40% GEL 15 GM TUBE PO PRN ×2 (19:22)
[2019-07-04] MEDS ORDERED: TRAMADOL HCL 50 MG TABLET PO PRN (19:23)
[2019-07-04] MEDS ORDERED: AMMONIUM LACTATE TOP PRN (19:23)
[2019-07-04] MEDS ORDERED: NITROGLYCERIN 0.4 MG/TAB 25 TAB/BOTTLE SL PRN (19:23)
[2019-07-04] MEDS ORDERED: (PENDING PHARMACY ID) (Melatonin [Melatonin] 10 MG) PO SCH (22:00)
--- NOTE | 2019-07-04 22:07 | PDOC H&P ---
History of Present Illness Admission Date/PCP: 07/04/19 15:11 DANIELA NATHALY Patient complains of: Change in speech and interaction History of Present Illness: FARAZ MARTINEZ is a 74 year old female known to my practice who was brought to the ED by her niece due to reported change in her speech and interaction for several days. Family reported worsening level of interaction over last several days. Patient has history of stroke with dysarthria. She denied any chest pain or difficulty with breathing. She denied any headache or dizziness. No abdominal pain, nausea or vomiting. She denied any tarry or blood stool. She denied use of OTC NSAIDS. She denied any fever or chills. No difficulty with voiding. She was not able to adequately contribute to her current medical issues but remain appropriate in simple responses during my bedside evaluation. There was no family member available to contribute to her current medical issues at the time of my visit. Her initial evaluation in the ED was remarkable for significant anemia with hemoglobin at 7.4 g/dL. Her CT scan head was devoid of any acute event but revealed chronic microvascular changes Her morbidities are as listed below. Past Medical History Cardiac Medical History: Reports: Coronary Artery Disease, Hyperlipidema, Hypertension Pulmonary Medical History: Reports: Chronic Obstructive Pulmonary Disease (COPD) Denies: Tuberculosis Neurological Medical History: Denies: Seizures Endocrine Medical History: Reports: Diabetes Mellitus Type 2 - With insulin GI Medical History: Reports: Gastroesophageal Reflux Disease Musculoskeltal Medical History: Reports: Arthritis Psychiatric Medical History: Reports: Depression Past Surgical History Past Surgical History: Reports: Hysterectomy, Tonsillectomy Denies: Pacemaker Social History Smoking Status: Never Smoker Electronic Cigarette use?: No Hx Recreational Drug Use: No Hx Prescription Drug Abuse: No - Advance Directive Resuscitation Status: Full Code Family History Family History: Reviewed & Not Pertinent Parental Family History Reviewed: Yes Children Family History Reviewed: Yes Sibling(s) Family History Reviewed.: Yes Medication/Allergy Home Medications: Clopidogrel Bisulfate [Plavix 75 mg Tablet] 75 mg PO DAILY 07/30/12 Cyclosporine 0.05% Oph Emulsio [Restasis 0.05% Oph Emulsion Pf 0.4 ml] 1 drop OU BID 07/30/12 Metoprolol Tartrate [Lopressor 50 mg Tablet] 50 mg PO Q12 07/30/12 Montelukast Sodium [Singulair 10 mg Tablet] 10 mg PO QHS 07/30/12 Nitroglycerin [Nitro-Dur 15 mg (0.6 mg/1 Hr) Transderm Patch] 1 patch TD QAM 07/30/12 Ammonium Lactate 1 applic TOP ASDIR PRN 07/04/19 Aspirin [Ecotrin 81 mg EC Tablet] 81 mg PO DAILY 07/04/19 Atorvastatin Calcium [Lipitor 40 mg Tablet] 40 mg PO QHS 07/04/19 Exenatide Microspheres [Bydureon Pen] 2 mg PO TU@1000 07/04/19 Melatonin 10 mg PO QHS 07/04/19 Metformin HCl [Glucophage 500 mg Tablet] 500 mg PO BIDACBS 07/04/19 Nitroglycerin [Nitrostat 0.4 mg (1/150 Gr) Tabs 25/Bottle] 1 tab SL Q5MP PRN 07/04/19 Pantoprazole Sodium 40 mg PO DAILY 07/04/19 Rivaroxaban [Xarelto] 20 mg PO DAILY 07/04/19 Tramadol HCl [Ultram 50 mg Tablet] 50 mg PO Q6HP PRN 07/04/19 Valsartan/Hydrochlorothiazide [Valsartan-Hctz 80-12.5 mg Tab] 1 each PO DAILY 07/04/19 Allergies/Adverse Reactions: codeine [Codeine] Allergy (Verified 08/17/17 21:44) Review of Systems Constitutional: ABSENT: chills, fever(s), headache(s), weight gain, weight loss Eyes: ABSENT: visual disturbances Ears: ABSENT: hearing changes Nose, Mouth, and Throat: ABSENT: as per HPI, headache(s), mouth pain, sore throat, vertigo, other Cardiovascular: ABSENT: chest pain, dyspnea on exertion, edema, orthropnea, palpitations Respiratory: ABSENT: cough, hemoptysis Gastrointestinal: ABSENT: abdominal pain, constipation, diarrhea, hematemesis, hematochezia, nausea, vomiting Genitourinary: ABSENT: dysuria, hematuria Musculoskeletal: ABSENT: joint swelling Integumentary: ABSENT: rash, wounds Neurological: PRESENT: abnormal speech. ABSENT: abnormal gait, confusion, dizziness, focal weakness, syncope Psychiatric: ABSENT: anxiety, depression, homidical ideation, suicidal ideation Endocrine: ABSENT: cold intolerance, heat intolerance, polydipsia, polyuria Hematologic/Lymphatic: ABSENT: easy bleeding, easy bruising, lymphadenopathy Allergic/Immunologic: ABSENT: seasonal rhinorrhea Physical Exam Vital Signs: Temp Pulse Resp BP Pulse Ox 98.3 F 60 17 178/66 H 100 07/04/19 19:31 07/04/19 19:31 07/04/19 19:31 07/04/19 19:31 07/04/19 19:31 Intake & Output 07/03/19 07/04/19 07/05/19 06:59 06:59 06:59 Intake Total 250 Balance 250 Weight 81.82 kg General appearance: PRESENT: obese Head exam: PRESENT: atraumatic, normocephalic Eye exam: PRESENT: conjunctiva pink, EOMI, PERRLA. ABSENT: scleral icterus Ear exam: ABSENT: normal external ear exam Mouth exam: PRESENT: moist Respiratory exam: PRESENT: clear to auscultation raimundo Cardiovascular exam: PRESENT: RRR. ABSENT: diastolic murmur, rubs, systolic murmur Vascular exam: PRESENT: normal capillary refill, pallor GI/Abdominal exam: PRESENT: normal bowel sounds, soft. ABSENT: distended, guarding, mass, organolmegaly, rebound, tenderness Rectal exam: PRESENT: deferred - to ED physician documented negative stool guaiac test. Musculoskeletal exam: PRESENT: deformity - related to multiple joints involvement with arthritis, normal inspection. ABSENT: tenderness Neurological exam: PRESENT: alert, awake, oriented to person, oriented to place, abnormal gait - unsteady gait without ambulatory assistance, CN II-XII grossly intact, motor sensory deficit. ABSENT: oriented to time, oriented to situation Psychiatric exam: PRESENT: appropriate affect, normal mood. ABSENT: homicidal ideation, suicidal ideation Skin exam: PRESENT: dry, intact, warm. ABSENT: cyanosis, rash Results Laboratory Results: 07/04/19 13:30 07/04/19 13:30 07/04/19 07/04/19 07/04/19 13:30 13:30 14:00 WBC 3.8 L RBC 3.00 L Hgb 7.4 L Hct 23.1 L MCV 77 L MCH 24.7 L MCHC 32.1 RDW 17.0 H Plt Count 215 Seg Neutrophils % 58.8 Sodium 139.9 Potassium 4.0 Chloride 106 Carbon Dioxide 26 Anion Gap 8 BUN 19 Creatinine 1.20 Est GFR ( Amer) 53 L Glucose 91 Calcium 9.1 Total Bilirubin 0.3 AST 18 Alkaline Phosphatase 63 Total Protein 7.3 Albumin 3.9 Blood Type B POSITIVE Antibody Screen TNP 07/04/19 07/04/19 13:30 13:30 Creatine Kinase 61 CK-MB (CK-2) 0.24 Troponin I < 0.012 Impressions: Chest X-Ray 07/04/19 13:01 IMPRESSION: NO ACUTE RADIOGRAPHIC FINDING IN THE CHEST. Head CT 07/04/19 13:01 IMPRESSION: No acute intracranial pathology. Unchanged left MCA territory e ncephalomalacia in keeping with prior infarction. Consider MRI to more sensitively evaluate for acutely superimposed diffusion restricting infarction. EVIDENCE OF ACUTE STROKE: NO. Assessment & Plan - Diagnosis (1) Microcytic anemia Is this a current diagnosis for this admission?: Yes Plan: See admitting attending physician orders for details about care plan. (2) Dysarthria as late effect of stroke Is this a current diagnosis for this admission?: Yes Plan: See admitting attending physician orders for details about care plan. (3) Type 2 diabetes mellitus with obesity Is this a current diagnosis for this admission?: Yes Plan: See admitting attending physician orders for details about care plan. (4) HTN (hypertension) Qualifiers: Hypertension type: essential hypertension Qualified Code(s): I10 - Essential (primary) hypertension Is this a current diagnosis for this admission?: Yes Plan: See admitting attending physician orders for details about care plan. (5) HLD (hyperlipidemia) Qualifiers: Hyperlipidemia type: unspecified Qualified Code(s): E78.5 - Hyperlipidemia, unspecified Is this a current diagnosis for this admission?: Yes Plan: See admitting attending physician orders for details about care plan. (6) CAD (coronary artery disease) Qualifiers: Coronary Disease-Associated Artery/Lesion type: [place] artery Associated angina: without angina Is this a current diagnosis for this admission?: Yes Plan: See admitting attending physician orders for details about care plan. (7) COPD (chronic obstructive pulmonary disease) Qualifiers: Emphysema type: unspecified Is this a current diagnosis for this admission?: Yes Plan: See admitting attending physician orders for details about care plan. (8) GERD (gastroesophageal reflux disease) Qualifiers: Esophagitis presence: esophagitis presence not specified Qualified Code(s): K21.9 - Gastro-esophageal reflux disease without esophagitis Is this a current diagnosis for this admission?: Yes Plan: See admitting attending physician orders for details about care plan. (9) Depression Qualifiers: Depression Type: unspecified Qualified Code(s): F32.9 - Major depressive disorder, single episode, unspecified Is this a current diagnosis for this admission?: Yes Plan: See admitting attending physician orders for details about care plan. - Time Time Spent: 50 to 70 Minutes Medications reviewed and adjusted accordingly: Yes Anticipated discharge: Home with Homehealth Within: Other - Inpatient Certification Based on my medical assessment, after consideration of the patient's comorbidities, presenting symptoms, or acuity I expect that the services needed warrant INPATIENT care.: Yes I certify that my determination is in accordance with my understanding of Medicare's requirements for reasonable and necessary INPATIENT services [42 CFR 412.3e].: Yes Medical Necessity: Significant Comorbidiites Make Outpatient Treatment Too Risky, Need Close Monitoring Due to Risk of Patient Decompensation, Need For IV Fluids, Need For Continuous Telemetry Monitoring, Risk of Complication if Not Cared For in Hospital, Risk of Diagnosis Which Will Require Inpatient Eval/Care/Monitoring Post Hospital Care: D/C Sander Operator Documentation - Plan Summary Plan Summary: See admitting attending physician orders for details about care plan.
[2019-07-04] MEDS: ATORVASTATIN CALCIUM 40 MG TABLET PO SCH (22:19)
[2019-07-04] MEDS: MONTELUKAST SODIUM 10 MG TABLET PO SCH (22:19)
[2019-07-04] MEDS: MELATONIN 5 MG TABLET PO SCH (22:19)
[2019-07-04] MEDS: METOPROLOL TARTRATE 50 MG TABLET PO SCH (22:19)
[2019-07-04] MEDS: INSULIN LISPRO 100 UNIT/ML 3 ML VIAL SUBCUT SCH (22:21)
[2019-07-04 22:57] LABS: ABSOLUTE EOSINOPHILS # (AUTO) 0.2 10^3/uL (0.0-0.6); ABSOLUTE LYMPHOCYTES (AUTO) 1.5 10^3/uL (0.5-4.7); ABSOLUTE MONOCYTES (AUTO) 0.4 10^3/uL (0.1-1.4); ABSOLUTE NEUT (AUTO) 2.3 10^3/uL (1.7-8.2); BASOPHILS % (AUTO) 0.9 % (0-2); EOSINOPHILS % (AUTO) 5.5 % (0-6); HEMATOCRIT 27.9 % (36.0-47.0); HEMOGLOBIN 9.1 g/dL (12.0-15.5); LYMPHOCYTES % (AUTO) 32.9 % (13-45); MEAN CORPUSCULAR HEMOGLOBIN 26.2 pg (27.0-33.4); MEAN CORPUSCULAR HGB CONC 32.5 g/dL (32.0-36.0); MONOCYTES % (AUTO) 9.2 % (3-13); PLATELET COUNT 206 10^3/uL (150-450); RED BLOOD COUNT 3.45 10^6/uL (3.72-5.28); RED CELL DISTRIBUTION WIDTH 19.8 % (11.5-14.0); SEGMENTED NEUTROPHILS % (AUTO) 51.5 % (42-78); TOTAL CELLS COUNTED % (AUTO) 100 %; WHITE BLOOD COUNT 4.4 10^3/uL (4.0-10.5)
[2019-07-04 23:02] LABS: MEAN CORPUSCULAR VOLUME 81 fl (80-97)
[2019-07-05] MEDS: PANTOPRAZOLE SODIUM 40 MG TABLET.DR PO SCH (05:33)
[2019-07-05 06:32] LABS: CHOLESTEROL 166.11 mg/dL (0-200); TRIGLYCERIDES 70 mg/dL (<150)
[2019-07-05 06:43] LABS: DIRECT LDL 99 mg/dL (<100)
[2019-07-05] MEDS: INSULIN LISPRO 100 UNIT/ML 3 ML VIAL SUBCUT SCH ×4 (08:24→21:49)
[2019-07-05] MEDS: NITROGLYCERIN 15 MG (0.6 MG/1 HR) PATCH.TD24 TD SCH (08:25)
[2019-07-05] MEDS: METFORMIN HCL 500 MG TABLET PO SCH ×2 (08:25→16:36)
[2019-07-05] MEDS ORDERED: VALSARTAN 80 MG TABLET PO SCH (10:00)
[2019-07-05] MEDS: RIVAROXABAN 10 MG TABLET PO SCH (10:31)
[2019-07-05] MEDS: CLOPIDOGREL BISULFATE 75 MG TABLET PO SCH (10:31)
[2019-07-05] MEDS: METOPROLOL TARTRATE 50 MG TABLET PO SCH ×2 (10:31→21:06)
[2019-07-05] MEDS: CYCLOSPORINE 0.05% OPH EMULSIO 0.4 ML DROPERETTE OU SCH ×2 (10:32→17:24)
[2019-07-05] MEDS: HYDROCHLOROTHIAZIDE 12.5 MG TABLET PO SCH (10:32)
--- NOTE | 2019-07-05 11:21 | RADIOLOGY REPORT (SQ) ---
EXAM DESCRIPTION: CAROTID DOPPLER COMPLETED DATE/TIME: 07/05/2019 11:02 am REASON FOR STUDY: Stroke with dysarthria COMPARISON: 06/12/2018 TECHNIQUE: Grayscale ultrasound, Doppler velocity and spectra, and color Doppler images acquired of the extra-cranial carotid and vertebral arteries. Images stored on PACS. LIMITATIONS: None. FINDINGS: RIGHT CAROTID CCA Velocities: Within normal limits. ICA Velocities Peak systolic 1.67 m/s. End diastolic 0.53 m/s. Proximal ICA/CCA peak systolic ratio 2.9. Moderate plaque bulb and proximal ICA. LEFT CAROTID CCA Velocities: Occluded. ICA Velocities Occluded. VERTEBRAL ARTERIES: Antegrade flow. Normal waveforms. SUBCLAVIAN ARTERIES: Not imaged. OTHER: No other significant finding. 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 50- 69% stenosis of the proximal right ICA. Slight progression since the prior. COMMENT: Quality ID #[id number]: Velocity criteria are extrapolated from the diameter data as defined by t [place] [employer] of Radiologists in Ultrasound Consensus Conference. Radiology 2003: 229; 340-346. TECHNICAL DOCUMENTATION: JOB ID: [id number] [employer]- All Rights Reserved Reading location - IP/workstation name: [email or web address]
[2019-07-05] MEDS ORDERED: NORMAL SALINE 250 ML IV PRN ×2 (19:35)
--- NOTE | 2019-07-05 19:35 | PDOC PROGRESS REPORT ---
Subjective Progress Note for:: 07/05/19 Subjective:: Patient participated in PT session earlier today. she denied any chest pain or difficulty with breathing. No fever or chills. Reason For Visit: ANEMIA,STROKE, HTN, DIABETES TYPE 2 Physical Exam Vital Signs: Temp Pulse Resp BP Pulse Ox 98.4 F 55 L 16 160/44 H 100 07/05/19 16:03 07/05/19 16:03 07/05/19 16:03 07/05/19 16:03 07/05/19 16:03 Intake & Output 07/04/19 07/05/19 07/06/19 06:59 06:59 06:59 Intake Total 1090 820 Output Total 100 Balance 990 820 Weight 75 kg General appearance: PRESENT: no acute distress, obese, well-developed, well- nourished Head exam: PRESENT: atraumatic, normocephalic Eye exam: PRESENT: conjunctiva pink. ABSENT: scleral icterus Ear exam: PRESENT: normal external ear exam Mouth exam: PRESENT: moist Respiratory exam: PRESENT: clear to auscultation raimundo Cardiovascular exam: PRESENT: RRR. ABSENT: diastolic murmur, rubs, systolic murmur Vascular exam: ABSENT: pallor GI/Abdominal exam: PRESENT: normal bowel sounds, soft. ABSENT: distended, guarding, mass, organolmegaly, rebound, tenderness Extremities exam: ABSENT: pedal edema Musculoskeletal exam: PRESENT: deformity - related to multiple joints inolvement with arthritis. Neurological exam: PRESENT: alert, awake, oriented to person, oriented to place, oriented to time, oriented to situation, CN II-XII grossly intact, other - dysarthria persist but at baseline since her prior stroke.. ABSENT: motor sensory deficit Psychiatric exam: PRESENT: appropriate affect, normal mood. ABSENT: homicidal ideation, suicidal ideation Skin exam: PRESENT: dry, warm Results Laboratory Results: 07/04/19 22:39 07/04/19 13:30 07/04/19 07/05/19 22:39 05:30 WBC 4.4 RBC 3.45 L Hgb 9.1 L Hct 27.9 L MCV 81 D MCH 26.2 L MCHC 32.5 RDW 19.8 H Plt Count 206 Seg Neutrophils % 51.5 Triglycerides 70 Cholesterol 166.11 LDL Cholesterol Direct 99 VLDL Cholesterol 14.0 HDL Cholesterol 51 07/04/19 07/04/19 13:30 13:30 Creatine Kinase 61 CK-MB (CK-2) 0.24 Troponin I < 0.012 Impressions: Chest X-Ray 07/04/19 13:01 IMPRESSION: NO ACUTE RADIOGRAPHIC FINDING IN THE CHEST. Head CT 07/04/19 13:01 IMPRESSION: No acute intracranial pathology. Unchanged left MCA territory encephalomalacia in keeping with prior infarction. Consider MRI to more sensitively evaluate for acutely superimposed diffusion restricting infarction. EVIDENCE OF ACUTE STROKE: NO. 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 50- 69% stenosis of the proximal right ICA. Slight progression since the prior. Assessment & Plan - Diagnosis (1) Microcytic anemia Is this a current diagnosis for this admission?: Yes Plan: Transfuse 1 unit PRBC tonight. Obtain post transfusion CBC. (2) Dysarthria as late effect of stroke Is this a current diagnosis for this admission?: Yes Plan: Maintain on Xarelto therapy for stroke prophylaxis therapy. (3) Type 2 diabetes mellitus with obesity Is this a current diagnosis for this admission?: Yes (4) HTN (hypertension) Qualifiers: Hypertension type: essential hypertension Qualified Code(s): I10 - Essential (primary) hypertension Is this a current diagnosis for this admission?: Yes Plan: Increase Diovan to 2160 mg po daily with 80 mg dose given tonight. (5) HLD (hyperlipidemia) Qualifiers: Hyperlipidemia type: unspecified Qualified Code(s): E78.5 - Hyperlipidemia, unspecified Is this a current diagnosis for this admission?: Yes (6) CAD (coronary artery disease) Qualifiers: Coronary Disease-Associated Artery/Lesion type: [place] artery Associated angina: without angina Is this a current diagnosis for this admission?: Yes (7) COPD (chronic obstructive pulmonary disease) Qualifiers: Emphysema type: unspecified Is this a current diagnosis for this admission?: Yes (8) GERD (gastroesophageal reflux disease) Qualifiers: Esophagitis presence: esophagitis presence not specified Qualified Code(s): K21.9 - Gastro-esophageal reflux disease without esophagitis Is this a current diagnosis for this admission?: Yes (9) Depression Qualifiers: Depression Type: unspecified Qualified Code(s): F32.9 - Major depressive disorder, single episode, unspecified Is this a current diagnosis for this admission?: Yes (10) Occlusion of right internal carotid artery Is this a current diagnosis for this admission?: Yes Plan: Continue current antiplatelets therapy with Clopidogrel. (11) Stenosis of left internal carotid artery Is this a current diagnosis for this admission?: Yes Plan: Continue current antiplatelets therapy with Clopidogrel. - Time Time Spent with patient: 25-34 minutes Level of Care: IMCU Medications reviewed and adjusted accordingly: Yes Anticipated discharge: Home with Homehealth Within: within 48 hours - Inpatient Certification Based on my medical assessment, after consideration of the patient's comorbidities, presenting symptoms, or acuity I expect that the services needed warrant INPATIENT care.: Yes I certify that my determination is in accordance with my understanding of Medicare's requirements for reasonable and necessary INPATIENT services [42 CFR 412.3e].: Yes Medical Necessity: Significant Comorbidiites Make Outpatient Treatment Too Risky, Need Close Monitoring Due to Risk of Patient Decompensation, Need For Continuous Telemetry Monitoring, Risk of Complication if Not Cared For in H ospital, Risk of Diagnosis Which Will Require Inpatient Eval/Care/Monitoring Post Hospital Care: D/C Animal Nutrition Teacher Documentation - Plan Summary Plan Summary: Transfuse 1 unit PRBC. Obtain post transfusion CBC. Consider discharge home tomorrow.
[2019-07-05] MEDS ORDERED: VALSARTAN 80 MG TABLET PO ONE (20:00)
[2019-07-05] MEDS: MELATONIN 5 MG TABLET PO SCH (21:11)
[2019-07-05] MEDS: ATORVASTATIN CALCIUM 40 MG TABLET PO SCH (21:11)
[2019-07-05] MEDS: MONTELUKAST SODIUM 10 MG TABLET PO SCH (21:11)
[2019-07-06 03:59] LABS: ABSOLUTE BASOPHILS # (AUTO) 0.1 10^3/uL (0.0-0.2); ABSOLUTE EOSINOPHILS # (AUTO) 0.5 10^3/uL (0.0-0.6); ABSOLUTE LYMPHOCYTES (AUTO) 1.5 10^3/uL (0.5-4.7); ABSOLUTE MONOCYTES (AUTO) 0.6 10^3/uL (0.1-1.4); ABSOLUTE NEUT (AUTO) 3.6 10^3/uL (1.7-8.2); EOSINOPHILS % (AUTO) 7.4 % (0-6); HEMATOCRIT 34.1 % (36.0-47.0); HEMOGLOBIN 11.4 g/dL (12.0-15.5); LYMPHOCYTES % (AUTO) 24.1 % (13-45); MEAN CORPUSCULAR HEMOGLOBIN 26.8 pg (27.0-33.4); MEAN CORPUSCULAR HGB CONC 33.4 g/dL (32.0-36.0); MEAN CORPUSCULAR VOLUME 80 fl (80-97); MONOCYTES % (AUTO) 9.2 % (3-13); PLATELET COUNT 174 10^3/uL (150-450); RED BLOOD COUNT 4.25 10^6/uL (3.72-5.28); RED CELL DISTRIBUTION WIDTH 18.5 % (11.5-14.0); SEGMENTED NEUTROPHILS % (AUTO) 58.3 % (42-78); TOTAL CELLS COUNTED % (AUTO) 100 %; WHITE BLOOD COUNT 6.1 10^3/uL (4.0-10.5)
[2019-07-06] MEDS: PANTOPRAZOLE SODIUM 40 MG TABLET.DR PO SCH (05:27)
[2019-07-06] MEDS: METFORMIN HCL 500 MG TABLET PO SCH ×2 (08:16→16:35)
[2019-07-06] MEDS: INSULIN LISPRO 100 UNIT/ML 3 ML VIAL SUBCUT SCH ×4 (08:17→16:15)
[2019-07-06] MEDS: CYCLOSPORINE 0.05% OPH EMULSIO 0.4 ML DROPERETTE OU SCH (09:16)
[2019-07-06] MEDS: HYDROCHLOROTHIAZIDE 12.5 MG TABLET PO SCH (09:17)
[2019-07-06] MEDS: NITROGLYCERIN 15 MG (0.6 MG/1 HR) PATCH.TD24 TD SCH (09:18)
[2019-07-06] MEDS: RIVAROXABAN 10 MG TABLET PO SCH (09:18)
[2019-07-06] MEDS: CLOPIDOGREL BISULFATE 75 MG TABLET PO SCH (09:18)
[2019-07-06] MEDS: METOPROLOL TARTRATE 50 MG TABLET PO SCH (09:19)
[2019-07-06] MEDS ORDERED: VALSARTAN 160 MG TABLET PO SCH (10:00)
--- NOTE | 2019-07-06 16:20 | XCELERA REPORT ---
[address] [address] Transthoracic Echocardiogram Report Name: FARAZ MARTINEZ Age: 74 yrs Gender: Female : 1945 Patient Status: Inpatient Patient Location: [address] [place] [address] Study Date: 07/05/2019 09:10 AM Weight: 180 lb Procedure: A two-dimensional transthoracic echocardiogram with color flow and Doppler was performed. The study was technically difficult with many images being suboptimal in quality. Reason For Study: Stroke with dysarthria History: Stroke with dysarthria. Ordering Physician: DANIELA ANDERSEN Performed By: Rachele Finn Interpretation Summary There is no obvious cardiac source of embolus noted on this transthoracic echocardiogram. Follow-up with a KAYLIE is suggested if cardiac source is still suspected. The left ventricle is normal in size. There is normal left ventricular wall thickness. LV EF is 60% Left ventricular systolic function is normal. Doppler measurements suggest impaired left ventricular relaxation, which is associated with grade I/IV or mild diastolic dysfunction There is basal inferior wall mild hypokinesis There is no thrombus. No Obvious ASD ,VSD , or PFO seen. The right ventricle is normal in size and function. The right atrium is normal. The left atrial size is normal. There is mild mitral annular calcification. There is no evidence of mitral valve prolapse. There is no vegetation seen on the mitral valve. There is no mitral valve stenosis. There is a mild amount of mitral regurgitation There is no aortic valvular vegetation. There is no aortic valve stenosis There is aortic sclerosis without aortic stenosis. There is no LVOT obstruction. No aortic regurgitation is present. There is no tricuspid stenosis. There is a trace amount of tricuspid regurgitation Right ventricular systolic pressure is normal. RVSP is 19 to 24 mm of Hg , with RA mean of 5 to 10. There is no pulmonic valvular stenosis. There is no pulmonic valvular regurgitation. The aortic root is not well visualized but is probably normal size. The inferior vena cava appeared normal and decreased > 50% with respiration (RAP 5-10 mmHg) There is no pericardial effusion. There is no obvious cardiac source of embolus noted on this transthoracic echocardiogram. Follow-up with a KAYLIE is suggested if cardiac source is still suspected MMode/2D Measurements & Calculations RVDd: 2.8 cm LVIDd: 5.3 cm FS: 30.5 % Ao root diam: IVSd: 0.94 cm LVIDs: 3.7 cm EDV(Teich): 2.4 cm LVPWd: 1.0 cm 138.0 ml Ao root area: ESV(Teich): 58.7 ml EF(Teich): 57.5 % 4.4 cm2 EDV(MOD-sp4): SV(MOD-sp4): 99.6 ml 60.5 ml ESV(MOD-sp4): 39.1 ml EF(MOD-sp4): 60.8 % Doppler Measurements & Calculations MV E max carlos: MV dec slope: Ao V2 max: LV V1 max P.7 cm/sec 547.2 cm/sec2 142.6 cm/sec 3.1 mmHg MV A max carlos: MV dec time: Ao max PG: LV V1 max: 113.1 cm/sec 0.19 sec 8.1 mmHg 87.7 cm/sec MV E/A: 0.92 PA V2 max: PI end-d carlos: TR max carlos: Pulm Sys Carlos: 71.2 cm/sec 46.5 cm/sec 187.2 cm/sec 67.6 cm/sec PA max P.0 mmHg TR max PG: Pulm [place] Carlos: 14.0 mmHg 56.7 cm/sec Pulm A Revs Carlos: 24.2 cm/sec Pulm A Revs Dur: 0.13 sec Pulm S/D: 1.2 Left Ventricle The left ventricle is normal in size. There is normal left ventricular wall thickness. LV EF is 60%. Left ventricular systolic function is normal. Doppler measurements suggest impaired left ventricular relaxation, which is associated with grade I/IV or mild diastolic dysfunction. There is basal inferior wall mild hypokinesis. There is no thrombus. No Obvious ASD ,VSD , or PFO seen. Right Ventricle The right ventricle is normal in size and function. Atria The right atrium is normal. The left atrial size is normal. Mitral Valve There is mild mitral annular calcification. There is no evidence of mitral valve prolapse. There is no vegetation seen on the mitral valve. There is no mitral valve stenosis. There is a mild amount of mitral regurgitation. Aortic Valve There is no aortic valvular vegetation. There is no aortic valve stenosis. There is aortic sclerosis without aortic stenosis. There is no LVOT obstruction. No aortic regurgitation is present. Tricuspid Valve There is no tricuspid stenosis. There is a trace amount of tricuspid regurgitation. Right ventricular systolic pressure is normal. RVSP is 19 to 24 mm of Hg , with RA mean of 5 to 10. Pulmonic Valve There is no pulmonic valvular stenosis. There is no pulmonic valvular regurgitation. Great Vessels The aortic root is not well visualized but is probably normal size. The inferior vena cava appeared normal and decreased > 50% with respiration (RAP 5-10 mmHg). Effusions There is no pericardial effusion. : DANIELA ANDERSEN Lakshmi
--- NOTE | 2019-07-06 16:22 | PDOC DISCHARGE SUMMARY ---
Impression - Admit/DC Date/PCP Admission Date/Primary Care Provider: 07/04/19 15:11 DANIELA ANDERSEN Discharge Date: 07/06/19 - Discharge Diagnosis (1) Microcytic anemia Is this a current diagnosis for this admission?: Yes (2) Dysarthria as late effect of stroke Is this a current diagnosis for this admission?: Yes (3) Type 2 diabetes mellitus with obesity Is this a current diagnosis for this admission?: Yes (4) HTN (hypertension) Is this a current diagnosis for this admission?: Yes (5) HLD (hyperlipidemia) Is this a current diagnosis for this admission?: Yes (6) CAD (coronary artery disease) Is this a current diagnosis for this admission?: Yes (7) COPD (chronic obstructive pulmonary disease) Is this a current diagnosis for this admission?: Yes (8) GERD (gastroesophageal reflux disease) Is this a current diagnosis for this admission?: Yes (9) Depression Is this a current diagnosis for this admission?: Yes (10) Occlusion of right internal carotid artery Is this a current diagnosis for this admission?: Yes (11) Stenosis of left internal carotid artery Is this a current diagnosis for this admission?: Yes - Additional Information Resuscitation Status: Full Code Discharge Diet: Cardiac, Diabetic Discharge Activity: Activity As Tolerated, Slowly Increase Activity Referrals: DANIELA ANDERSEN MD [Primary Care Provider] - 07/11/19 10:00 am (Need GI referral to Dr Peterson in view of EGD (at [facility] in 2012) and colonoscopy (in office suite in 2017) findings.) Home Medications: Clopidogrel Bisulfate [Plavix 75 mg Tablet] 75 mg PO DAILY 07/30/12 Cyclosporine 0.05% Oph Emulsio [Restasis 0.05% Oph Emulsion Pf 0.4 ml] 1 drop OU BID 07/30/12 Metoprolol Tartrate [Lopressor 50 mg Tablet] 50 mg PO Q12 07/30/12 Montelukast Sodium [Singulair 10 mg Tablet] 10 mg PO QHS 07/30/12 Nitroglycerin [Nitro-Dur 15 mg (0.6 mg/1 Hr) Transderm Patch] 1 patch TD QAM 07/30/12 Ammonium Lactate 1 applic TOP ASDIR PRN 07/04/19 Aspirin [Ecotrin 81 mg EC Tablet] 81 mg PO DAILY 07/04/19 Atorvastatin Calcium [Lipitor 40 mg Tablet] 40 mg PO QHS 07/04/19 Exenatide Microspheres [Bydureon Pen] 2 mg PO TU@1000 07/04/19 Melatonin 10 mg PO QHS 07/04/19 Metformin HCl [Glucophage 500 mg Tablet] 500 mg PO BIDACBS 07/04/19 Nitroglycerin [Nitrostat 0.4 mg (1/150 Gr) Tabs 25/Bottle] 1 tab SL Q5MP PRN 07/04/19 Pantoprazole Sodium 40 mg PO DAILY 07/04/19 Rivaroxaban [Xarelto] 20 mg PO DAILY 07/04/19 Tramadol HCl [Ultram 50 mg Tablet] 50 mg PO Q6HP PRN 07/04/19 Valsartan/Hydrochlorothiazide [Valsartan-Hctz 80-12.5 mg Tab] 1 each PO DAILY 07/04/19 History of Present Illiness History of Present Illness: FARAZ MARTINEZ is a 74 year old female known to my practice who was brought to the ED by her niece due to reported change in her speech and interaction for several days. Family reported worsening level of interaction over last several days. Patient has history of stroke with dysarthria. She denied any chest pain or difficulty with breathing. She denied any headache or dizziness. No abdominal pain, nausea or vomiting. She denied any tarry or blood stool. She denied use of OTC NSAIDS. She denied any fever or chills. No difficulty with voiding. She was not able to adequately contribute to her current medical issues but remain appropriate in simple responses during my bedside evaluation. There was no family member available to contribute to her current medical issues at the time of my visit. Her initial evaluation in the ED was remarkable for significant anemia with hemoglobin at 7.4 g/dL. Her head CT scan was devoid of any acute event but revealed chronic microvascular changes Her morbidities are as listed below. Hospital Course Hospital Course: She was transfused total 2 units PRBC due to her significant anemia with resultant hemoglobin reported at 11.4 g/dL. she denied any chest pain. Her colonoscopy that was completed on outpatient by Dr. Peterson on 08/13/2017 revealed transverse colon polyps s/p polypectomy with moderate sigmoid diverticulosis. Her vascular system evaluation revealed total occlusion of right internal carotid and 50-69 % stenosis on the left side. She will be referred to vascular surgeon for further input as needed. She will be discharged home today with discontinuation of her Aspirin in view of her anemia with need for blood transfusion. Physical Exam Vital Signs: Temp Pulse Resp BP Pulse Ox 98.5 F 57 L 16 155/74 H 100 07/06/19 11:07 07/06/19 11:07 07/06/19 11:07 07/06/19 11:07 07/06/19 11:07 Intake & Output 07/05/19 07/06/19 07/07/19 06:59 06:59 06:59 Intake Total 1090 1160 Output Total 100 450 Balance 990 710 Weight 75 kg 75.4 kg General appearance: PRESENT: no acute distress, obese, well-developed, well- nourished Head exam: PRESENT: atraumatic, normocephalic Eye exam: PRESENT: conjunctiva pink. ABSENT: pallor, scleral icterus Ear exam: PRESENT: normal external ear exam Mouth exam: PRESENT: moist Respiratory exam: PRESENT: clear to auscultation raimundo Cardiovascular exam: PRESENT: RRR. ABSENT: diastolic murmur, rubs, systolic murmur GI/Abdominal exam: PRESENT: normal bowel sounds, soft. ABSENT: distended, guarding, mass, organomegaly, rebound, tenderness Extremities exam: ABSENT: pedal edema Musculoskeletal exam: PRESENT: deformity - related to multiple joints involvement with arthritis. Neurological exam: PRESENT: alert, awake, oriented to person, oriented to place, oriented to time, oriented to situation, CN II-XII grossly intact, other - baseline dysarthria from prior stroke. ABSENT: motor sensory deficit Psychiatric exam: PRESENT: appropriate affect, normal mood. ABSENT: homicidal ideation, suicidal ideation Skin exam: PRESENT: dry, warm Results Laboratory Results: WBC 6.1 10^3/uL (4.0-10.5) 07/06/19 03:14 RBC 4.25 10^6/uL (3.72-5.28) 07/06/19 03:14 Hgb 11.4 g/dL (12.0-15.5) L D 07/06/19 03:14 Hct 34.1 % (36.0-47.0) L 07/06/19 03:14 MCV 80 fl (80-97) 07/06/19 03:14 MCH 26.8 pg (27.0-33.4) L 07/06/19 03:14 MCHC 33.4 g/dL (32.0-36.0) 07/06/19 03:14 RDW 18.5 % (11.5-14.0) H 07/06/19 03:14 Plt Count 174 10^3/uL (150-450) 07/06/19 03:14 Lymph % (Auto) 24.1 % (13-45) 07/06/19 03:14 Duval % (Auto) 9.2 % (3-13) 07/06/19 03:14 Eos % (Auto) 7.4 % (0-6) H 07/06/19 03:14 Baso % (Auto) 1.0 % (0-2) 07/06/19 03:14 Absolute Neuts (auto) 3.6 10^3/uL (1.7-8.2) 07/06/19 03:14 Absolute Lymphs (auto) 1.5 10^3/uL (0.5-4.7) 07/06/19 03:14 Absolute Monos (auto) 0.6 10^3/uL (0.1-1.4) 07/06/19 03:14 Absolute Eos (auto) 0.5 10^3/uL (0.0-0.6) 07/06/19 03:14 Absolute Basos (auto) 0.1 10^3/uL (0.0-0.2) 07/06/19 03:14 Seg Neutrophils % 58.3 % (42-78) 07/06/19 03:14 PT 18.7 SEC (11.4-15.4) H 07/04/19 13:30 INR 1.55 07/04/19 13:30 APTT 32.9 SEC (23.5-35.8) 07/04/19 13:30 Sodium 139.9 mmol/L (137-145) 07/04/19 13:30 Potassium 4.0 mmol/L (3.6-5.0) 07/04/19 13:30 Chloride 106 mmol/L (98-107) 07/04/19 13:30 Carbon Dioxide 26 mmol/L (22-30) 07/04/19 13:30 Anion Gap 8 (5-19) 07/04/19 13:30 BUN 19 mg/dL (7-20) 07/04/19 13:30 Creatinine 1.20 mg/dL (0.52-1.25) 07/04/19 13:30 Est GFR ( Amer) 53 (>60) L 07/04/19 13:30 Est GFR (MDRD) Non-Af 44 (>60) L 07/04/19 13:30 Glucose 91 mg/dL (75-110) 07/04/19 13:30 POC Glucose 73 mg/dL (70-110) 07/06/19 11:07 Hemoglobin A1c % 6.0 % (4.7-6.0) 07/05/19 05:30 Calcium 9.1 mg/dL (8.4-10.2) 07/04/19 13:30 Total Bilirubin 0.3 mg/dL (0.2-1.3) 07/04/19 13:30 Direct Bilirubin 0.1 mg/dL (0.0-0.4) 07/04/19 13:30 Neonat Total Bilirubin Not Reportable 07/04/19 13:30 Neonat Direct Bilirubin Not Reportable 07/04/19 13:30 Neonat Indirect Bili Not Reportable 07/04/19 13:30 AST 18 U/L (14-36) 07/04/19 13:30 ALT 10 U/L (<35) 07/04/19 13:30 Alkaline Phosphatase 63 U/L (38-126) 07/04/19 13:30 Creatine Kinase 61 U/L (30-135) 07/04/19 13:30 CK-MB (CK-2) 0.24 ng/mL (<4.55) 07/04/19 13:30 Troponin I < 0.012 ng/mL 07/04/19 13:30 Total Protein 7.3 g/dL (6.3-8.2) 07/04/19 13:30 Albumin 3.9 g/dL (3.5-5.0) 07/04/19 13:30 Triglycerides 70 mg/dL (<150) 07/05/19 05:30 Cholesterol 166.11 mg/dL (0-200) 07/05/19 05:30 LDL Cholesterol Direct 99 mg/dL (<100) 07/05/19 05:30 VLDL Cholesterol 14.0 mg/dL (10-) 07/05/19 05:30 HDL Cholesterol 51 mg/dL (>40) 07/05/19 05:30 Blood Type B POSITIVE 07/04/19 14:00 Antibody Screen TNP 07/04/19 14:00 Ab Screen Tube Method NEGATIVE 07/04/19 14:00 Antigen Identification Monalisa Antigen - NEGATIVE 07/04/19 14:00 Crossmatch See Detail 07/04/19 14:00 07/04/19 13:30 CK-MB (CK-2) 0.24 Troponin I < 0.012 Impressions: Chest X-Ray 07/04/19 13:01 IMPRESSION: NO ACUTE RADIOGRAPHIC FINDING IN THE CHEST. Head CT 07/04/19 13:01 IMPRESSION: No acute intracranial pathology. Unchanged left MCA territory encephalomalacia in keeping with prior infarction. Consider MRI to more sensitively evaluate for acutely superimposed diffusion restricting infarction. EVIDENCE OF ACUTE STROKE: NO. 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 50- 69% stenosis of the proximal right ICA. Slight progression since the prior. Plan Health Concerns: Possible recurrent anemia. Source is presently unknown in view of her heme negative result in the ED. She will be referred to Dr Peterson for GI evaluation Plan of Treatment: D/C home today. Follow up in the office as instructed upon discharge. She will be referred to Dr. Peterson for GI evaluation and vascular surgeon in view of her left ICA stenosis and prior stroke event. Goals: Avoid recurrent anemia and stroke events. Continue on discharge medication. Stroke Is this a Stroke Patient?: No Acute Heart Failure - Is this a Heart Failure Patient?: No
[2019-07-06 17:18] VITALS: BP 169/63
[2019-07-10] MEDS ORDERED: (PENDING PHARMACY ID) (Exenatide Microspheres [Bydureon Pen] 2 MG) PO SCH (10:00)
== END 2019-07-06 18:00 | disposition home or self-care (01) ==
LOC: ER 12:56 → EH 15:11 → INTOOBSV 15:11 → 3W 19:48
PROVIDERS: ADMIT Internal Medicine Geriatric Medicine; ATTEND Internal Medicine Geriatric Medicine
PROC: 30233N1 Transfusion of Nonautologous Red Blood Cells into Peripheral Vein, Percutaneous Approach (ICD-10-PCS; principal; 2019-07-04)
DX: D50.9 Iron deficiency anemia, unspecified (principal); I69.322 Dysarthria following cerebral infarction; E11.9 Type 2 diabetes mellitus without complications; I10 Essential (primary) hypertension; E78.5 Hyperlipidemia, unspecified; I25.10 Atherosclerotic heart disease of native coronary artery without angina pectoris; J44.9 Chronic obstructive pulmonary disease, unspecified; K21.9 Gastro-esophageal reflux disease without esophagitis; F32.9 Major depressive disorder, single episode, unspecified; I65.23 Occlusion and stenosis of bilateral carotid arteries; K57.30 Diverticulosis of large intestine without perforation or abscess without bleeding; M13.89 Other specified arthritis, multiple sites; E66.9 Obesity, unspecified; R26.81 Unsteadiness on feet; I69.392 Facial weakness following cerebral infarction; R41.0 Disorientation, unspecified; Z79.02 Long term (current) use of antithrombotics/antiplatelets; Z79.899 Other long term (current) drug therapy; Z86.010 Personal history of colon polyps; Z79.4 Long term (current) use of insulin; Z79.82 Long term (current) use of aspirin; Z95.5 Presence of coronary angioplasty implant and graft
CPT/HCPCS: 93005; 99285; 86900; 86901; 36415 ×3; 82553; 36430; 86850; 86922; 82962 ×3; 82550; 85025 ×2; 85610; 85730; 80053; 84484; 83036; 86920; 80061; 86902; 93306; 93880; 71045; 70450; 93010; 97161; 92507; 92522; G0378 ×2; P9016 ×2; A9270 ×22; J7050; J3490

== ENCOUNTER → 2019-09-18 | Outpatient (CLI) | payer MEDICARE, MEDICAID ==
--- NOTE | 2019-09-19 11:17 | WOMENS IMAGING REPORT ---
EXAM DESCRIPTION: 3D SCREENING MAMMO BILAT COMPLETED DATE/TIME: 09/18/2019 3:24 pm REASON FOR STUDY: Z12.31 SCREENING MAMMO Z12.31 ENCNTR SCREEN MAMMOGRAM FOR MALIGNANT NEOPLASM OF B RE COMPARISON: Multiple since 2008 EXAM PARAMETERS: Views: Standard craniocaudal and mediolateral oblique views of each breast recorded using digital acquisition and breast tomosynthesis. Read with the assistance of CAD. .FORMERLY [facility] - [employer] Agent Version 9.2 LIMITATIONS: None. FINDINGS: No suspicious masses, suspicious calcifications or architectural distortion. No areas of c oncern. IMPRESSION: NEGATIVE MAMMOGRAM. BIRADS 1. BREAST DENSITY: b. There are scattered areas of fibroglandular density. BIRAD: ASSESSMENT: 1 NEGATIVE RECOMMENDATION: ROUTINE SCREENING Please continue yearly bilateral screening mammography/tomosynthesis in September 2020 COMMENT: The patient has been notified of the results by letter per [place] requirements. Additional no tification policies are in place for contacting patient with suspicious or incomplete findings. Quality ID #[id number]: The [employer] recommends an annual screening mammogram for women aged 40 years or over. This facility utilizes a reminder system to ensure that all patients receive reminder letters, and/or direct phone calls for appointments. This includes reminders for routine scr eening mammograms, diagnostic mammograms, or other Breast Imaging Interventions when appropriate. Th is patient will be placed in the appropriate reminder system. TECHNICAL DOCUMENTATION: FINDING NUMBER: (1) ASSESSMENT: (1) JOB ID: [id number] [employer]- All Rights Reserved Reading location - IP/workstation name: [email or web address]
== END ==
LOC: WI 15:00
PROVIDERS: ATTEND Internal Medicine Geriatric Medicine
DX: Z12.31 Encounter for screening mammogram for malignant neoplasm of breast (principal)
CPT/HCPCS: 77063; 77067

== ENCOUNTER 2020-06-20 17:53 | Emergency (ER) | payer MEDICARE, MEDICAID ==
--- NOTE | 2020-06-20 18:56 | RADIOLOGY REPORT (SQ) ---
EXAM DESCRIPTION: CHEST SINGLE VIEW IMAGES COMPLETED DATE/TIME: 06/20/2020 6:38 pm REASON FOR STUDY: sob COMPARISON: 07/04/2019 EXAM PARAMETERS: NUMBER OF VIEWS: One view. TECHNIQUE: Single frontal radiographic view of the chest acquired. RADIATION DOSE: NA LIMITATIONS: None. FINDINGS: LUNGS AND PLEURA: Minimal pleural effusions. Minimal right lower lobe atelectasis. [employer] ionable ill-defined opacification in the right costophrenic angle. No jocelyne pulmonary edema. MEDIASTINUM AND HILAR STRUCTURES: No masses. Contour normal. HEART AND VASCULAR STRUCTURES: Cardiomegaly. BONES: No acute findings. HARDWARE: None in the chest. OTHER: No other significant finding. IMPRESSION: Cardiomegaly without jocelyne pulmonary edema. Cannot exclude a limited infiltrate in the right lower lobe laterally. Cannot exclude minimal pleural effusions. TECHNICAL DOCUMENTATION: JOB ID: [id number] [employer]- All Rights Reserved Reading location - IP/workstation name: [email or web address]
[2020-06-20] MEDS ORDERED: NORMAL SALINE 250 ML IV PRN ×2 (19:04)
[2020-06-20 19:08] LABS: HEMATOCRIT 23.6 % (36.0-47.0); MEAN CORPUSCULAR HEMOGLOBIN 20.7 pg (27.0-33.4); MEAN CORPUSCULAR HGB CONC 29.8 g/dL (32.0-36.0); MEAN CORPUSCULAR VOLUME 69 fl (80-97); PLATELET COUNT 228 10^3/uL (150-450); RED BLOOD COUNT 3.39 10^6/uL (3.72-5.28); RED CELL DISTRIBUTION WIDTH 19.8 % (11.5-14.0); WHITE BLOOD COUNT 4.5 10^3/uL (4.0-10.5)
[2020-06-20] MEDS ORDERED: HYDRALAZINE HCL INJ/PF 20 MG/1 ML SDV IV ONE (19:11)
[2020-06-20 19:21] LABS: ALBUMIN 3.7 g/dL (3.5-5.0); ALKALINE PHOSPHATASE 70 U/L (38-126); ANION GAP 11 (5-19); ASPARTATE AMINO TRANSFERASE 43 U/L (14-36); BILIRUBIN,DIRECT 0.3 mg/dL (0.0-0.4); BILIRUBIN,TOTAL 1.2 mg/dL (0.2-1.3); BLOOD UREA NITROGEN 17 mg/dL (7-20); CALCIUM 9.1 mg/dL (8.4-10.2); CARBON DIOXIDE 26 mmol/L (22-30); CHLORIDE 104 mmol/L (98-107); GLUCOSE 94 mg/dL (75-110); POTASSIUM 3.9 mmol/L (3.6-5.0); TOTAL PROTEIN 6.9 g/dL (6.3-8.2)
[2020-06-20 19:29] LABS: ABSOLUTE LYMPHOCYTES# (MANUAL) 1.2 10^3/uL (0.5-4.7); ABSOLUTE MONOCYTES # (MANUAL) 0.3 10^3/uL (0.1-1.4); BASOPHILS % (MANUAL) 1 % (0-2); EOSINOPHILS % (MANUAL) 0 % (0-6); LYMPHOCYTES % (MANUAL) 26 % (13-45); MONOCYTES % (MANUAL) 6 % (3-13); NUCLEATED RED BLOOD CELLS 2 /100 WBC (0); SEGMENTED NEUTROPHILS % (MAN) 67 % (42-78); TOTAL CELLS COUNTED 100
[2020-06-20 19:30] LABS: INTERNATIONAL RATION (INR) 2.03
[2020-06-20 19:31] LABS: ANISOCYTOSIS 2+; HYPOCHROMASIA 2+; POLYCHROMASIA SLIGHT
[2020-06-20 19:32] LABS: OVALOCYTES 1+; PLATELET COMMENT ADEQUATE; POIKILOCYTOSIS 1+
--- NOTE | 2020-06-20 19:49 | ER Document Report ---
ED Respiratory Problem - General Chief Complaint: Shortness Of Breath Stated Complaint: SHORTNESS OF BREATH Time Seen by Provider: 06/20/20 19:03 Primary Care Provider: DANIEAL ANDERSEN MD [Primary Care Provider] - 06/23/20 Mode of Arrival: Medic Information source: Patient, Emergency Med Personnel, [facility] Records Notes: This 75-year-old female patient comes emergency room complaining of shortness of breath for the past 2 days. She does have a history of anemia, she is unaware of the etiology. She was last transfused here on 11/14/2019, has not had any lab work in our facility since then. Patient does not know when the last time she had any lab work done. There is no cough, there is no shortness of breath. There is no fever. TRAVEL OUTSIDE OF THE [place] IN LAST 30 DAYS: No - Related Data Allergies/Adverse Reactions: codeine [Codeine] Allergy (Verified 08/17/17 21:44) Past Medical History - General Information source: Patient, Emergency Med Personnel, [facility] Records - Social History Smoking Status: Former Smoker Cigarette use (# per day): No Chew tobacco use (# tins/day): No Smoking Education Provided: No Frequency of alcohol use: None Drug Abuse: None Lives with: Alone Family History: Reviewed & Not Pertinent Patient has homicidal ideation: No - Past Medical History Cardiac Medical History: Reports: Hx Coronary Artery Disease, Hx Hype rcholesterolemia, Hx Hypertension Pulmonary Medical History: Reports: Hx COPD Neurological Medical History: Reports: Hx Cerebrovascular Accident - with residual left face mild weakness Endocrine Medical History: Reports: Hx Diabetes Mellitus Type 2 - On Metformin and Bydureon GI Medical History: Reports: Hx Gastroesophageal Reflux Disease Musculoskeletal Medical History: Reports Hx Arthritis, Reports Hx Muscle Weakness Psychiatric Medical History: Reports: Hx Depression Past Surgical History: Reports: Hx Coronary Stent, Hx Hysterectomy, Hx Tonsillectomy - Immunizations Hx Diphtheria, Pertussis, Tetanus Vaccination: No Hx Pneumococcal Vaccination: 09/05/07 Review of Systems - Review of Systems Constitutional: No symptoms reported EENT: No symptoms reported Cardiovascular: No symptoms reported Respiratory: Short of breath Gastrointestinal: No symptoms reported Genitourinary: No symptoms reported Female Genitourinary: Post menopausal Musculoskeletal: No symptoms reported Skin: No symptoms reported Hematologic/Lymphatic: No symptoms reported Neurological/Psychological: No symptoms reported Physical Exam - Vital signs Vitals: Pulse Ox 97 06/20/20 18:35 Interpretation: Hypertensive - General General appearance: Appears well, Alert In distress: Mild Notes: When the patient arrived to the room, the nurse reported she was extremely short of breath. After she was able to sit on the stretcher without any activity and nasal O2, she calmed down and began breathing more easily. - HEENT Head: Normocephalic, Atraumatic Eyes: Pale conjunctiva Pupils: PERRL Neck: Normal - Respiratory Respiratory status: Tachypnea Chest status: Nontender Breath sounds: Normal - Cardiovascular Rhythm: Regular Heart sounds: Normal auscultation Murmur: No - Abdominal Inspection: Obese Distension: No distension Bowel sounds: Normal Tenderness: Nontender - Back Back: Normal - Extremities General upper extremity: Other - Nailbeds are quite pale General lower extremity: Edema - Neurological Neuro grossly intact: Yes - Psychological Associated symptoms: Normal affect, Normal mood - Skin Skin Temperature: Warm Skin Moisture: Dry Skin Color: Normal Course - Vital Signs Vital signs: Temp Pulse Resp BP Pulse Ox 98.4 F 66 19 189/92 H 98 06/21/20 05:41 06/21/20 05:41 06/21/20 05:41 06/21/20 05:41 06/21/20 05:41 - Laboratory Result Diagrams: 06/20/20 18:47 06/20/20 18:47 Laboratory results interpreted by me: 06/20/20 06/20/20 06/20/20 18:47 18:47 18:47 RBC 3.39 L Hgb 7.0 L Hct 23.6 L MCV 69 L MCH 20.7 L MCHC 29.8 L RDW 19.8 H PT 23.0 H Est GFR (MDRD) Non-Af 52 L AST 43 H ALT 36 H Urine Protein Urine Urobilinogen Ur Leukocyte Esterase Crossmatch 06/20/20 06/20/20 18:47 20:20 RBC Hgb Hct MCV MCH MCHC RDW PT Est GFR (MDRD) Non-Af AST ALT Urine Protein 100 H Urine Urobilinogen 4.0 H Ur Leukocyte Esterase MODERATE H Crossmatch See Detail - Diagnostic Test Radiology reviewed: Image reviewed, Reports reviewed - Chest x-ray showed cardiomegaly without jocelyne pulmonary edema. Cannot exclude limited infiltrate in the right lower lobe laterally. Cannot exclude minimal pleural effusions. - EKG Interpretation by Me EKG shows normal: Sinus rhythm, [place], Intervals, QRS Complexes. abnormal: ST-T Waves - Borderline inferior T abnormalities Rate: Normal - 56 Rhythm: NSR Voltage: Consistent with LVH When compared to previous EKG there are: No significant change Discharge - Discharge Clinical Impression: Symptomatic anemia, Short of breath on exertion Condition: Stable Disposition: HOME, SELF-CARE Additional Instructions: Your blood level had gotten quite low. That is probably why you felt so short of breath. You were given 2 units of packed red blood cells in the emergency room. You should follow-up with Dr. Andersen on Tuesday for recheck. RETURN TO THE EMERGENCY ROOM IF ANY NEW OR WORSENING SYMPTOMS. Referrals: DANIELA ANDERSEN MD [Primary Care Provider] - 06/23/20
[2020-06-20 20:58] LABS: APPEARANCE,URINE CLEAR; BILIRUBIN,URINE NEGATIVE (NEGATIVE); COLOR,URINE YELLOW; GLUCOSE, URINE NEGATIVE (NEGATIVE); KETONES,URINE NEGATIVE (NEGATIVE); LEUKOCYTE ESTERASE,URINE MODERATE (NEGATIVE); NITRITE,URINE NEGATIVE (NEGATIVE); PROTEIN,URINE 100 mg/dL (NEGATIVE); URINE SPECIFIC GRAVITY 1.017
[2020-06-21 05:43] VITALS: BP 189/92
--- NOTE | 2020-06-21 05:47 | ER Document Report ---
Doctor's Note Notes: 06/21/20 05:47 Patient tolerated transfusion well and was able to ambulate afterwards without difficulty. As discussed with Dr. Latham, as long as patient tolerated transfusion was able to ambulate without difficulty patient could be safely discharged home. This MD will put in the discharge order.
--- NOTE | 2020-06-21 09:57 | EKG REPORT ---
SEVERITY:- ABNORMAL ECG - SINUS RHYTHM PROBABLE LEFT VENTRICULAR HYPERTROPHY BORDERLINE T ABNORMALITIES, INFERIOR LEADS : Confirmed by: Lacey Matthews 21-Jun-2020 09:57:04
== END 2020-06-21 06:23 | disposition home or self-care (01) ==
LOC: ER 17:53
DX: D64.9 Anemia, unspecified (principal); R06.02 Shortness of breath; I25.10 Atherosclerotic heart disease of native coronary artery without angina pectoris; E78.00 Pure hypercholesterolemia, unspecified; I10 Essential (primary) hypertension; J44.9 Chronic obstructive pulmonary disease, unspecified; Z88.6 Allergy status to analgesic agent
CPT/HCPCS: 93005; 99285; 96374; 86900; 86901; 36415; 87086; 36430; 86850; 86922; 82550; 85025; 85610; 82270; 87088; 80053; 81001; 84484; 86920; 71045; 93010; P9016; J0360

== ENCOUNTER 2020-06-28 23:08 | Inpatient (IN) | payer MEDICARE, MEDICAID ==
[2020-06-28 23:47] LABS: ABSOLUTE EOSINOPHILS # (AUTO) 0.1 10^3/uL (0.0-0.6); ABSOLUTE LYMPHOCYTES (AUTO) 0.9 10^3/uL (0.5-4.7); ABSOLUTE MONOCYTES (AUTO) 0.4 10^3/uL (0.1-1.4); BASOPHILS % (AUTO) 0.9 % (0-2); HEMOGLOBIN 10.4 g/dL (12.0-15.5); LYMPHOCYTES % (AUTO) 16.4 % (13-45); MEAN CORPUSCULAR HEMOGLOBIN 22.9 pg (27.0-33.4); MEAN CORPUSCULAR HGB CONC 31.4 g/dL (32.0-36.0); PLATELET COUNT 231 10^3/uL (150-450); RED BLOOD COUNT 4.53 10^6/uL (3.72-5.28); SEGMENTED NEUTROPHILS % (AUTO) 73.7 % (42-78); TOTAL CELLS COUNTED % (AUTO) 100 %; WHITE BLOOD COUNT 5.4 10^3/uL (4.0-10.5)
--- NOTE | 2020-06-29 00:06 | RADIOLOGY REPORT (SQ) ---
XR CHEST 1 VIEW HISTORY: Shortness of breath. COMPARISON: None. FINDINGS: The heart size is enlarged with mild central pulmonary vascular congestion. There are likely small pleural effusions. No pneumothorax or consolidation is seen. No acute bony findings are seen. IMPRESSION: Pulmonary edema with small pleural effusions.
[2020-06-29 00:15] LABS: MEAN CORPUSCULAR VOLUME 73 fl (80-97)
[2020-06-29] MEDS ORDERED: NITROGLYCERIN 2% OINTMENT 1 GM PACKET TP ONE (00:18)
[2020-06-29] MEDS ORDERED: FUROSEMIDE INJ/PF 100 MG/10 ML SDV IV ONE (00:18)
[2020-06-29 00:20] LABS: ALBUMIN 3.7 g/dL (3.5-5.0); ALKALINE PHOSPHATASE 61 U/L (38-126); ANION GAP 11 (5-19); ASPARTATE AMINO TRANSFERASE 26 U/L (14-36); BILIRUBIN,DIRECT 0.3 mg/dL (0.0-0.4); BILIRUBIN,TOTAL 1.5 mg/dL (0.2-1.3); BLOOD UREA NITROGEN 15 mg/dL (7-20); CALCIUM 9.3 mg/dL (8.4-10.2); CARBON DIOXIDE 27 mmol/L (22-30); CHLORIDE 104 mmol/L (98-107); GLUCOSE 92 mg/dL (75-110); POTASSIUM 3.3 mmol/L (3.6-5.0); TOTAL PROTEIN 6.9 g/dL (6.3-8.2)
[2020-06-29] MEDS ORDERED: DIPH/PERTUSS(ACELL)/TETANUS VAC/PF 0.5 ML SYR (>=10YO) IM ONE (00:20)
[2020-06-29] MEDS ORDERED: NITROGLYCERIN/D5W 50 MG/250 ML RTUINJ IV PRN (01:03)
[2020-06-29 01:18] LABS: VENOUS BLOOD BASE EXCESS 2.8 mmol/L; VENOUS BLOOD HCO3 28.8 mmol/L (20-32); VENOUS BLOOD PCO2 50.3 mmHg (35-63); VENOUS BLOOD PH 7.38 (7.30-7.42)
[2020-06-29] MEDS ORDERED: POTASSIUM CHLORIDE 10 MEQ TABLET.ER PO ONE ×2 (01:25→15:20)
--- NOTE | 2020-06-29 01:33 | ER Document Report ---
ED General - General Chief Complaint: Shortness Of Breath Stated Complaint: SHORTNESS OF BREATH,CHEST PAIN,FALL Notes: 75-year-old female history of hypertension, hyperlipidemia, diabetes, COPD, CAD with stents, stroke with residual dysarthria presents with approximately 2 weeks of intermittent worsening shortness of breath, dyspnea on exertion associated with worsening bilateral lower extremity edema. Patient also endorses some intermittent chest pain but is unable to further describe. Patient had a fall, but unable secondary to dysarthria to describe event surrounding fall. Patient denies headache, neck pain, back pain, fever, cough. History limited by betty zhou TRAVEL OUTSIDE OF THE [place] IN LAST 30 DAYS: No - Related Data Allergies/Adverse Reactions: codeine [Codeine] Allergy (Verified 08/17/17 21:44) Past Medical History - General Information source: Patient, [facility] - Social History Smoking Status: Former Smoker Chew tobacco use (# tins/day): No Frequency of alcohol use: None Drug Abuse: None Family History: Reviewed & Not Pertinent Patient has homicidal ideation: No - Past Medical History Cardiac Medical History: Reports: Hx Coronary Artery Disease, Hx Hypercholesterolemia, Hx Hypertension Pulmonary Medical History: Reports: Hx COPD Denies: Hx Tuberculosis Neurological Medical History: Reports: Hx Cerebrovascular Accident - with residual left face mild weakness. Denies: Hx Seizures Endocrine Medical History: Reports: Hx Diabetes Mellitus Type 1, Hx Diabetes Mellitus Type 2 - On Metformin and Bydureon Renal/ Medical History: Denies: Hx Peritoneal Dialysis GI Medical History: Reports: Hx Gastroesophageal Reflux Disease Musculoskeletal Medical History: Reports Hx Arthritis, Reports Hx Muscle Weakness Psychiatric Medical History: Reports: Hx Depression Past Surgical History: Reports: Hx Cardiac Surgery - cardiac stents, Hx Coronary Stent, Hx Hysterectomy, Hx Tonsillectomy. Denies: Hx Pacemaker - Immunizations Hx Diphtheria, Pertussis, Tetanus Vaccination: No Hx Pneumococcal Vaccination: 09/05/07 Review of Systems - Review of Systems Notes: REVIEW OF SYSTEMS: CONSTITUTIONAL : Denies fever, chills, or sweats. EENT: Denies recent cold/sinus symptoms, denies throat pain CARDIOVASCULAR: + chest pain, +AL RESPIRATORY: Denies cough, + shortness of breath. GASTROINTESTINAL: Denies abdominal pain, nausea/vomiting. GENITOURINARY: Denies difficulty urinating, painful urination. MUSCULOSKELETAL: Denies neck pain, back pain. SKIN: Denies rash or skin lesions. HEMATOLOGIC : Denies easy bruising or bleeding. LYMPHATIC: Denies swollen, enlarged glands. NEUROLOGICAL: Denies headache, denies change in gait. PSYCHIATRIC: Denies anxiety or stress or depression. Physical Exam - Vital signs Vitals: Pulse Ox 96 06/28/20 23:09 - Notes Notes: PHYSICAL EXAMINATION: GENERAL: Chronically ill-appearing elderly woman lying in stretcher appropriately interactive in no acute distress HEAD: Normocephalic, abrasion over nasal bridge with local tenderness without deformity, no septal hematoma, no other signs of head trauma EYES: Pupils equal round and appropriate constriction, sclera anicteric, conjunctiva are normal. ENT: nares patent, moist mucous membranes. NECK: Normal range of motion, supple without lymphadenopathy, no midline cervical tenderness LUNGS: Tachypneic without accessory muscle use, no tripoding, managing secretions HEART: Tachycardic regular rhythm without murmurs rubs or gallops ABDOMEN: Soft, nontender, no guarding, no masses, no CVAT EXTREMITIES: Diffuse pitting edema of bilateral lower extremities symmetrically, no signs of extremity trauma, no C/C/L/spinal tenderness or deformity. NEUROLOGICAL: Awake, alert, dysarthric, moves all extremities spontaneously. PSYCH: Normal mood, normal affect. SKIN: Warm, Dry, normal turgor, no rashes Course - Re-evaluation Re-evalutation: 06/29/20 01:34 Patient with shortness of breath chest pain, significant lower extremity edema bilaterally, coarse breath sounds, likely secondary to CHF. Patient's last echo recorded here shows normal ejection fraction and mild diastolic CHF so this is concerning for new onset CHF. Rule out ACS, less likely COPD exacerbation. Patient had fall which was witnessed and patient unable to give reliable history, concern for possible syncope. Rule out facial fractures, intracranial hemorrhage, obtain a C-spine CT also given patient's history limited and patient's age low likelihood of C-spine fracture. No other signs of injury on head to toe full trauma evaluation other than nasal bridge. No lacerations. Will update Tdap. No new neuro deficits when compared to prior chart. Will treat for CHF with Lasix nitroglycerin and admit. No signs of impending respiratory failure, but will continue to monitor closely for any changes in patient's status. 06/29/20 01:55 Discussed case with patient's primary Dr. Scott who is accepted patient to [facility]. Request that nitroglycerin drip be DC'd and give patient her home meds. Will attempt to titrate off nitroglycerin drip and see how patient tolerates that she has improved on nitroglycerin. Home meds include metoprolol which I will hold in case of acute heart failure. - Vital Signs Vital signs: Temp Pulse Resp BP Pulse Ox 98.0 F 56 L 20 165/60 H 100 07/01/20 03:24 07/01/20 03:24 07/01/20 03:24 07/01/20 03:24 07/01/20 03:24 - Laboratory Result Diagrams: 06/30/20 05:40 06/30/20 05:40 Laboratory results interpreted by me: 06/28/20 06/28/20 06/28/20 23:30 23:30 23:30 Hgb 10.4 L Hct 33.0 L MCV 73 L D MCH 22.9 L MCHC 31.4 L RDW 22.0 H Potassium 3.3 L Total Bilirubin 1.5 H NT-Pro-B Natriuret Pep 52698 H - EKG Interpretation by Me Additional EKG results interpreted by me: 07/01/20 06:39 Sinus rhythm, no significant ST elevations or depressions, no significant T wave abnormalities, prolonged QT of 511 Critical Care Note - Critical Care Note Total time excluding time spent on procedures (mins): 35 - Spent time repeatedly reassessing patient with hypertensive emergency Discharge - Discharge Clinical Impression: Hypertensive emergency Heart failure Qualifiers: Heart failure type: unspecified Heart failure chronicity: unspecified Qualified Code(s): I50.9 - Heart failure, unspecified Pulmonary edema Qualifiers: Chronicity: acute Qualified Code(s): J81.0 - Acute pulmonary edema Disposition: ADMITTED INPATIENT Admitting Provider: Sonia Unit Admitted: [facility]
[2020-06-29 02:01] LABS: PHOSPHORUS 3.6 mg/dL (2.5-4.5)
--- NOTE | 2020-06-29 02:44 | RADIOLOGY REPORT (SQ) ---
CLINICAL HISTORY: trauma COMPARISON: 07/04/2019. TECHNIQUE: CT HEAD WITHOUT IV CONTRAST on 06/29/2020 12:19 AM CDT This exam was performed according to our departmental dose-optimization program, which includes automated exposure control, adjustment of the mA and/or kV according to patient size and/or use of iterative reconstruction technique. FINDINGS: There is no acute hemorrhage, mass effect or midline shift. There is left frontal encephalomalacia. There is no hydrocephalus. There is no significant volume loss for age. The calvarium is intact. Orbits and globes are unremarkable. The paranasal sinuses are clear. Mastoid air cells are clear. IMPRESSION: No acute intracranial findings.
--- NOTE | 2020-06-29 02:47 | RADIOLOGY REPORT (SQ) ---
CLINICAL HISTORY: trauma COMPARISON: None. TECHNIQUE: CT MAXILLOFACIAL WITHOUT IV CONTRAST on 06/29/2020 12:28 AM CDT This exam was performed according to our departmental dose-optimization program, which includes automated exposure control, adjustment of the mA and/or kV according to patient size and/or use of iterative reconstruction technique. FINDINGS: There is no acute fracture. The paranasal sinuses are clear. Orbits and globes are unremarkable. Mastoid air cells are clear. Temporomandibular joints are intact. There are no significant soft tissue abnormalities. IMPRESSION: No post-traumatic findings.
--- NOTE | 2020-06-29 02:48 | RADIOLOGY REPORT (SQ) ---
CLINICAL HISTORY: trauma COMPARISON: None. TECHNIQUE: CT CERVICAL SPINE WITHOUT IV CONTRAST on 06/29/2020 12:19 AM CDT This exam was performed according to our departmental dose-optimization program, which includes automated exposure control, adjustment of the mA and/or kV according to patient size and/or use of iterative reconstruction technique. FINDINGS: There is no acute fracture. Vertebral body heights are preserved. Alignment is anatomic. There is mild diffuse facet arthritis. Disc spaces are maintained. There are bilateral pleural effusions. IMPRESSION: No acute fracture or subluxation.
[2020-06-29] MEDS ORDERED: ASPIRIN 81 MG TABLET, CHEWABLE PO ONE (04:12)
[2020-06-29] MEDS ORDERED: VALSARTAN 80 MG TABLET PO ONE (05:35)
[2020-06-29] MEDS ORDERED: HYDROCHLOROTHIAZIDE 12.5 MG TABLET PO ONE (05:35)
[2020-06-29] MEDS ORDERED: DEXTROSE 50%-WATER SYRINGE 12.5 GM/25 ML DOSE IV PRN (08:00)
[2020-06-29] MEDS ORDERED: GLUCAGON,HUMAN RECOMB 1 MG INJ IM PRN (08:00)
[2020-06-29] MEDS ORDERED: DEXTROSE 50%-WATER SYRINGE 25 GM/50 ML DOSE IV PRN (08:00)
[2020-06-29] MEDS ORDERED: DEXTROSE 40% GEL 15 GM TUBE X 2 PO PRN (08:00)
[2020-06-29] MEDS ORDERED: DEXTROSE 40% GEL 15 GM TUBE PO PRN (08:00)
[2020-06-29] MEDS: INSULIN LISPRO 100 UNIT/ML 3 ML VIAL SUBCUT SCH ×4 (09:14→22:39)
[2020-06-29] MEDS ORDERED: NITROGLYCERIN 0.4 MG/TAB 25 TAB/BOTTLE SL PRN (15:17)
--- NOTE | 2020-06-29 15:17 | PDOC H&P ---
History of Present Illness Admission Date/PCP: 06/29/20 04:06 [facility] History of Present Illness: FARAZ MARTINEZ is a 75 year old female known to my practice who presented to the ED with two week history of intermittent chest pain, worsening shortness of breathe and leg swelling. She denied any associated palpitation, dizziness, or headache. she reported incident of fall earlier on the day of her presentation. The patient and daughter at bedside could not expatiate on the circumstance of her fall but reported that she sustained bruise injury on her nose. She denied any neck or back pain. She denied loss of consciousness. She denied any nausea, vomiting or abdominal pain. No fever or chills. No dysuria, flank pain or hematuria. She was at the ED recently and diagnosed with anemia as source of her difficulty with breathing. She was transfused 2 units PRBC. Her initial e valuation in the ED was significant for tachypnea, bilateral leg swelling, elevated NT-Pro BNP, hypokalemia, and slightly elevated total bilirubin level. She was advised hospitalization for further evaluation and management. Her morbidities are listed below. Past Medical History Cardiac Medical History: Reports: Coronary Artery Disease, Hyperlipidema, Hyper tension Pulmonary Medical History: Reports: Chronic Obstructive Pulmonary Disease (COPD) Denies: Tuberculosis Neurological Medical History: Denies: Seizures Endocrine Medical History: Reports: Diabetes Mellitus Type 1, Diabetes Mellitus Type 2 - On Metformin and Bydureon GI Medical History: Reports: Gastroesophageal Reflux Disease Musculoskeltal Medical History: Reports: Arthritis Psychiatric Medical History: Reports: Depression Past Surgical History Past Surgical History: Reports: Coronary Stent, Hysterectomy, Tonsillectomy Denies: Pacemaker Social History Smoking Status: Former Smoker Cigarettes Packs Per Day: 1 Electronic Cigarette use?: No Frequency of Alcohol Use: None Hx Recreational Drug Use: No Drugs: None Hx Prescription Drug Abuse: No - Advance Directive Resuscitation Status: Full Code Family History Family History: Reviewed & Not Pertinent Parental Family History Reviewed: Yes Children Family History Reviewed: Yes Sibling(s) Family History Reviewed.: Yes Medication/Allergy Home Medications: Cyclosporine 0.05% Oph Emulsio [Restasis 0.05% Oph Emulsion Pf 0.4 ml] 1 drop OU BID 07/30/12 Metoprolol Tartrate [Lopressor 50 mg Tablet] 50 mg PO Q12 07/30/12 Montelukast Sodium [Singulair 10 mg Tablet] 10 mg PO QHS 07/30/12 Nitroglycerin [Nitro-Dur 15 mg (0.6 mg/1 Hr) Transderm Patch] 1 patch TD QAM 07/30/12 Ammonium Lactate 1 applic TOP ASDIR PRN 07/04/19 Atorvastatin Calcium [Lipitor 40 mg Tablet] 40 mg PO QHS 07/04/19 Exenatide Microspheres [Bydureon Pen] 2 mg PO TU@1000 07/04/19 Melatonin 10 mg PO QHS 07/04/19 Metformin HCl [Glucophage 500 mg Tablet] 500 mg PO BIDACBS 07/04/19 Nitroglycerin [Nitrostat 0.4 mg (1/150 Gr) Tabs 25/Bottle] 1 tab SL Q5MP PRN 07/04/19 Pantoprazole Sodium 40 mg PO DAILY 07/04/19 Rivaroxaban [Xarelto] 20 mg PO DAILY 07/04/19 Tramadol HCl [Ultram 50 mg Tablet] 50 mg PO Q6HP PRN 07/04/19 Telmisartan/Hydrochlorothiazid [Telmisartan-Hctz 40-12.5 mg Tb] 1 tab PO QPM 06/29/20 Allergies/Adverse Reactions: codeine [Codeine] Allergy (Verified 08/17/17 21:44) Review of Systems Constitutional: ABSENT: chills, fever(s), headache(s), weight gain, weight loss Eyes: ABSENT: visual disturbances Ears: ABSENT: hearing changes Cardiovascular: PRESENT: chest pain - intermittently, dyspnea on exertion, edema . ABSENT: orthropnea, palpitations Respiratory: PRESENT: dyspnea. ABSENT: cough, hemoptysis Gastrointestinal: ABSENT: abdominal pain, constipation, diarrhea, hematemesis, hematochezia, nausea, vomiting Genitourinary: ABSENT: dysuria, hematuria Musculoskeletal: ABSENT: joint swelling Integumentary: ABSENT: rash, wounds Neurological: ABSENT: abnormal gait, abnormal speech, confusion, dizziness, focal weakness, syncope Psychiatric: ABSENT: anxiety, depression, homidical ideation, suicidal ideation Endocrine: ABSENT: cold intolerance, heat intolerance, menstrual abnormalities, polydipsia, polyuria Hematologic/Lymphatic: ABSENT: easy bleeding, easy bruising, lymphadenopathy Physical Exam Vital Signs: Temp Pulse Resp BP Pulse Ox 97.9 F 66 17 169/64 H 99 06/29/20 11:26 06/29/20 11:26 06/29/20 11:26 06/29/20 11:26 06/29/20 11:26 Intake & Output 06/28/20 06/29/20 06/30/20 06:59 06:59 06:59 Intake Total 504 Output Total 2200 250 Balance -2200 254 Weight 66.9 kg General appearance: PRESENT: no acute distress Head exam: PRESENT: atraumatic, normocephalic Eye exam: PRESENT: conjunctiva pink, EOMI, PERRLA. ABSENT: scleral icterus Ear exam: PRESENT: normal external ear exam Mouth exam: PRESENT: moist, tongue midline Neck exam: PRESENT: full ROM. ABSENT: carotid bruit, JVD, lymphadenopathy, thyromegaly Respiratory exam: PRESENT: clear to auscultation raimundo Cardiovascular exam: PRESENT: RRR, +S1, +S2. ABSENT: diastolic murmur, rubs, systolic murmur Pulses: PRESENT: normal dorsalis pedis pul, +2 pedal pulses bilateral Vascular exam: PRESENT: normal capillary refill. ABSENT: pallor GI/Abdominal exam: PRESENT: normal bowel sounds, soft. ABSENT: distended, guarding, mass, organolmegaly, rebound, tenderness Rectal exam: PRESENT: deferred Extremities exam: ABSENT: pedal edema Neurological exam: PRESENT: alert, awake, oriented to person, oriented to place, oriented to time, oriented to situation, CN II-XII grossly intact, other - lonstanding dysarthria. ABSENT: motor sensory deficit Psychiatric exam: PRESENT: appropriate affect, normal mood. ABSENT: homicidal ideation, suicidal ideation Skin exam: PRESENT: dry, intact, warm. ABSENT: cyanosis, rash Results Laboratory Results: 06/28/20 23:30 06/28/20 23:30 06/28/20 06/28/20 06/28/20 22:30 23:30 23:30 WBC 5.4 RBC 4.53 Hgb 10.4 L Hct 33.0 L MCV 73 L D MCH 22.9 L MCHC 31.4 L RDW 22.0 H Plt Count 231 Seg Neutrophils % 73.7 VBG pH VBG pCO2 VBG HCO3 VBG Base Excess Sodium 141.8 Potassium 3.3 L Chloride 104 Carbon Dioxide 27 Anion Gap 11 BUN 15 Creatinine 0.92 Est GFR ( Amer) > 60 Glucose 92 Calcium 9.3 Phosphorus 3.6 Magnesium 1.9 Total Bilirubin 1.5 H AST 26 Alkaline Phosphatase 61 Total Protein 6.9 Albumin 3.7 06/29/20 00:45 WBC RBC Hgb Hct MCV MCH MCHC RDW Plt Count Seg Neutrophils % VBG pH 7.38 VBG pCO2 50.3 VBG HCO3 28.8 VBG Base Excess 2.8 Sodium Potassium Chloride Carbon Dioxide Anion Gap BUN Creatinine Est GFR ( Amer) Glucose Calcium Phosphorus Magnesium Total Bilirubin AST Alkaline Phosphatase Total Protein Albumin 06/28/20 06/28/20 23:30 23:30 Troponin I 0.073 NT-Pro-B Natriuret Pep 13178 H Impressions: Chest X-Ray 06/28/20 23:22 IMPRESSION: Pulmonary edema with small pleural effusions. Cervical Spine CT 06/29/20 00:19 IMPRESSION: No acute fracture or subluxation. Head CT 06/29/20 00:19 IMPRESSION: No acute intracranial findings. Facial Bones CT 06/29/20 00:28 IMPRESSION: No post-traumatic findings. Assessment & Plan - Diagnosis (1) Acute CHF (congestive heart failure) Qualifiers: Heart failure type: diastolic Qualified Code(s): I50.31 - Acute diastolic (congestive) heart failure Is this a current diagnosis for this admission?: Yes Plan: See admitting attending physician for details about care plan. (2) HTN (hypertension) Qualifiers: Hypertension type: essential hypertension Qualified Code(s): I10 - Essential (primary) hypertension Is this a current diagnosis for this admission?: Yes Plan: See admitting attending physician for details about care plan. (3) CAD (coronary artery disease) Qualifiers: Coronary Disease-Associated Artery/Lesion type: [place] artery Associated angina: without angina Is this a current diagnosis for this admission?: Yes Plan: See admitting attending physician for details about care plan. (4) HLD (hyperlipidemia) Qualifiers: Hyperlipidemia type: unspecified Qualified Code(s): E78.5 - Hyperlipidemia, unspecified Is this a current diagnosis for this admission?: Yes Plan: See admitting attending physician for details about care plan. (5) Type 2 diabetes mellitus with obesity Is this a current diagnosis for this admission?: Yes Plan: See admitting attending physician for details about care plan. (6) COPD (chronic obstructive pulmonary disease) Qualifiers: Emphysema type: unspecified Is this a current diagnosis for this admission?: Yes Plan: See admitting attending physician for details about care plan. (7) Anemia Qualifiers: Anemia type: iron deficiency Iron deficiency anemia type: unspecified iron deficiency Qualified Code(s): D50.9 - Iron deficiency anemia, unspecified Is this a current diagnosis for this admission?: Yes Plan: See admitting attending physician for details about care plan. (8) GERD (gastroesophageal reflux disease) Qualifiers: Esophagitis presence: esophagitis presence not specified Qualified Code(s): K21.9 - Gastro-esophageal reflux disease without esophagitis Is this a current diagnosis for this admission?: Yes Plan: See admitting attending physician for details about care plan. (9) Dysarthria as late effect of stroke Is this a current diagnosis for this admission?: Yes Plan: See admitting attending physician for details about care plan. - Time Time Spent: 50 to 70 Minutes Medications reviewed and adjusted accordingly: Yes Anticipated Discharge Disposition: Home with Home Health Anticipated Discharge Timeframe: within 72 hours - Inpatient Certification Based on my medical assessment, after consideration of the patient's comorbidities, presenting symptoms, or acuity I expect that the services needed warrant INPATIENT care.: Yes I certify that my determination is in accordance with my understanding of Medicare's requirements for reasonable and necessary INPATIENT services [42 CFR 412.3e].: Yes Medical Necessity: Significant Comorbidiites Make Outpatient Treatment Too Risky, Need Close Monitoring Due to Risk of Patient Decompensation, Need For Continuous Telemetry Monitoring, Risk of Complication if Not Cared For in Hospital, Risk of Diagnosis Which Will Require Inpatient Eval/Care/Monitoring Post Hospital Care: D/C Change Management Coordinator Documentation - Plan Summary Plan Summary: See admitting attending physician orders for details about care plan.
[2020-06-29] MEDS: VALSARTAN 160 MG TABLET PO SCH (15:55)
[2020-06-29] MEDS: METOPROLOL SUCCINATE 50 MG TAB.SR.24H PO SCH (16:06)
[2020-06-29] MEDS: METFORMIN HCL 500 MG TABLET PO SCH (16:06)
[2020-06-29] MEDS: ATORVASTATIN CALCIUM 40 MG TABLET PO SCH (17:23)
[2020-06-29] MEDS: AMMONIUM LACTATE 12% LOTION 225GM BOTTLE TP SCH (17:23)
[2020-06-29] MEDS: RIVAROXABAN 10 MG TABLET PO SCH (17:23)
[2020-06-29] MEDS: CYCLOSPORINE 0.05% OPH EMULSIO 0.4 ML DROPERETTE OU SCH (17:24)
[2020-06-29] MEDS: NORMAL SALINE 1000 ML 1,000 ML IV PRN (17:26)
[2020-06-29] MEDS ORDERED: AMMONIUM LACTATE TOP SCH (18:00)
[2020-06-29] MEDS: TRAMADOL HCL 50 MG TABLET PO PRN (20:16)
--- NOTE | 2020-06-29 20:19 | EKG REPORT ---
SEVERITY:- ABNORMAL ECG - SINUS RHYTHM PROBABLE LEFT ATRIAL ABNORMALITY LEFT ANTERIOR FASCICULAR BLOCK LEFT VENTRICULAR HYPERTROPHY BORDERLINE T ABNORMALITIES, INFERIOR LEADS PROLONGED QT INTERVAL : Confirmed by: Niraj Irving MD 29-Jun-2020 20:18:37
--- NOTE | 2020-06-29 22:45 | PDOC CONSULTATION ---
Consultation-Blank Consultation: CARDIOLOGY CONSULTATION by Dr. Sun Baez on 06/29/2020. Patient seen at 3:45 PM. 60 minutes spent as patient with more than 50% of time spent in direct patient care. RECENT FOR CONSULTATION: Patient with acute congestive heart failure. Also the patient follows up with me closely in the outpatient clinic. CONSULT REQUESTING PHYSICIAN: Dr. Scott. HISTORY OF PRESENT ILLNESS: Note that the patient especially handicapped with the dysarthria is not a very good historian and neither is her daughter. The patient is a understand has a history of shortness of breath with PND and orthopnea and leg edema since the past 2 weeks. She did not mention this to me when she was in the office and and the office exam did not show any leg edema. She also states with exertion she has chest pressure which is relieved with rest. The details of which are not very clear. She denies palpitations or syncope. She has a history of proximal atrial fibrillation with no recurrence. In the emergency room her blood pressure was found to be 208 systolic and was started on IV nitroglycerin to keep her blood pressure down at present blood pressure still not very optimally controlled. The patient last year had an echocardiogram for which showed normal left and systolic function with diastolic dysfunction. The patient's cause of heart failure is uncontrolled hypertension and left ventricular diastolic heart failure. She denies any cough wheezing or sputum production. She also as per the daughter and her had of sudden onset of weakness and fall with no loss of consciousness and injured her bridge of her nose. CAT scan did not show any intracranial pathology. She denies any fever or symptoms suggestive of Covid infection. The patient recently was seen in the emergency room for shortness of breath and was found to be anemic and was given blood transfusions. She denies any black tarry stools. The patient does have a history of peripheral vascular disease with angioplasty of L left femoral artery in 2016. Although she has no claudication now due to the patient's low potassium she has been having cramping in both legs. Past Medical History Cardiac Medical History: Reports: Coronary Artery Disease, Hyperlipidema, Hypertension. Note in August 2009 the patient had a pulseless electrical activity causing cardiac arrest. She had a cardiac catheterization and in [facility] where she was found to have a right coronary artery lesion for which there were 2 stents placed. She has not had any further anginal symptoms. She has history of paroxysmal atrial fibrillation. She has had no recurrence of atrial fibrillation. The patient is on anticoagulation Xarelto. She also has peripheral arterial disease and had angioplasty of her left femoral artery in the past. She does not walk much and hence there is no definite evidence of claudication. Pulmonary Medical History: Reports: Chronic Obstructive Pulmonary Disease (COPD). There is no symptoms of acute exacerbation of COPD. There is no wheezing. There is no history of sleep apnea. Denies: Tuberculosis Neurological Medical History: Denies: Seizures. Prior history of CVA with residual dysarthria. Endocrine Medical History: Reports: Diabetes Mellitus Type 1, Diabetes Mellitus Type 2 - On Metformin and Bydureon GI Medical History: Reports: Gastroesophageal Reflux Disease. No history of GI bleed Musculoskeltal Medical History: Reports: Arthritis Psychiatric Medical History: Reports: Depression. Hematological: There is a patient has a history of anemia she has had blood transfusions in the recent past. She continues to be anemic. Past Surgical History Past Surgical History: Reports: Coronary Stent, Hysterectomy, Tonsillectomy Denies: Pacemaker. Current Medications Generic Name Dose Route Start Last Admin Trade Name Freq PRN Reason Stop Dose Admin Atorvastatin Calcium 40 mg 06/29/20 18:00 06/29/20 17:23 Lipitor 40 Mg Tablet PO 07/29/20 17:59 40 mg QPM YOGESH Administration Cyclosporine 1 drop 06/29/20 18:00 06/29/20 17:24 Restasis 0.05% Oph Emulsion Pf 0.4 Ml OU 07/29/20 17:59 1 drop BID YOGESH Administration Dextrose 12.5 gm 06/29/20 08:00 Dextrose Inj 50% Syringe (25 Gm/50 Ml) IV 07/29/20 07:59 PRN PRN FOR BG 50-69 IN ALERT PATIENT Protocol Dextrose 25 gm 06/29/20 08:00 Dextrose Inj 50% Syringe (25 Gm/50 Ml) IV 07/29/20 07:59 PRN PRN Protocol Furosemide 40 mg 06/30/20 10:00 Lasix Inj/Pf 40 Mg/4 Ml Sdv IV 07/30/20 09:59 DAILY YOGESH Glucagon 1 mg 06/29/20 08:00 Glucagen Inj 1 Mg Vial IM 07/29/20 07:59 PRN PRN EVALUATE FOR BG < 70 Protocol Glucose 15 gm 06/29/20 08:00 Glutose 40% Gel 15 Gm Tube PO 07/29/20 07:59 PRN PRN FOR BG 50-69 IN ALERT PATIENT Protocol Glucose 30 gm 06/29/20 08:00 Glutose 40% Gel 15 Gm Tube PO 07/29/20 07:59 PRN PRN FOR BG < 50 IN ALERT PATIENT Protocol Sodium Chloride 1,000 mls @ 20 mls/hr 06/29/20 11:14 06/29/20 17:26 Nacl 0.9% 1000 Ml Iv Soln IV 07/29/20 11:13 20 mls/hr CONTINUOUS PRN Administration THIS MED IS NOT "PRN" Insulin Human Lispro 0 - 12 unit 06/29/20 08:00 06/29/20 22:39 Humalog Insulin 100 Unit/1 Ml 3 Ml Vial SUBCUT 07/29/20 07:59 Not Given ACHS [facility] Protocol Lactic Acid 1 applic 06/29/20 18:00 06/29/20 17:23 Lac-Hydrin 12% Lotion 225gm/Bottle TP 07/29/20 17:59 1 applic BID YOGESH Administration Metformin HCl 500 mg 06/29/20 16:00 06/29/20 16:06 Glucophage 500 Mg Tablet PO 07/29/20 15:59 500 mg BIDACBS YOGESH Administration Metoprolol Succinate 100 mg 06/29/20 15:30 06/29/20 16:06 Toprol Xl 50 Mg Tab.Sr PO 07/29/20 15:29 100 mg DAILY YOGESH Administration Nitroglycerin 1 each 06/30/20 08:00 Nitro-Dur 15 Mg (0.6 Mg/1 Hr) Transderm Patch TD 07/30/20 07:59 QAM YOGESH Nitroglycerin 1 tab 06/29/20 15:17 Nitrostat 0.4 Mg (1/150 Gr) Tabs 25/Bottle SL 07/29/20 15:16 Q5MP PRN FOR CHEST PAIN Pantoprazole Sodium 40 mg 06/30/20 06:[address] Tablet PO 07/30/20 05:59 Q6AM YOGESH Pantoprazole Sodium 40 mg 06/30/20 08:[address] Tablet PO 07/30/20 07:59 [id number] [facility] Patient Own Medication 2 mg 07/01/20 10:00 Exenatide Microspheres [Bydureon Pen] PO 07/31/20 09:59 TU@1000 YOGESH Rivaroxaban 20 mg 06/29/20 17:00 06/29/20 17:23 Xarelto 10 Mg Tablet PO 07/29/20 16:59 20 mg DAILY@1700 YOGESH Administration Tramadol HCl 50 mg 06/29/20 15:17 06/29/20 20:16 Ultram 50 Mg Tablet PO 07/06/20 15:16 50 mg Q6HP PRN Administration FOR PAIN Valsartan 160 mg 06/29/20 15:30 06/29/20 15:55 Diovan 160 Mg Tablet PO 07/29/20 15:29 Not Given DAILY [facility] Discontinued Medications Generic Name Dose Route Start Last Admin Trade Name Freq PRN Reason Stop Dose Admin Aspirin 324 mg 06/29/20 04:12 06/29/20 04:24 Aspirin 81 Mg Chewable Tablet PO 06/29/20 04:13 324 mg NOW ONE Administration Diphtheria/Tetanus/Acell Pertussis 0.5 ml 06/29/20 00:20 06/29/20 00:35 Boostrix Vaccine 0.5 Ml Syringe IM 06/29/20 00:21 0.5 ml NOW ONE Administration Furosemide 80 mg 06/29/20 00:18 06/29/20 00:34 Lasix Inj/Pf 100 Mg/10 Ml Sdv IV 06/29/20 00:19 80 mg NOW ONE Administration Hydrochlorothiazide 12.5 mg 06/29/20 05:35 06/29/20 06:20 Hydrodiuril 12.5 Mg Tablet PO 06/29/20 05:36 12.5 mg NOW ONE Administration Nitroglycerin/Dextrose 50 mg in 250 mls @ 0 mls/hr 06/29/20 01:03 06/29/20 09:17 Ntg Rtu 50 Mg/D5w 250 Ml Iv Premix Bottle IV 07/29/20 01:02 Infused CONTINUOUS PRN Titration THIS MED IS NOT "PRN" Protocol Titrate Nitroglycerin 1 gm 06/29/20 00:18 06/29/20 00:34 Nitrol 2% Ointment 1gm Packet TP 06/29/20 00:19 1 gm NOW ONE Administration Potassium Chloride 40 meq 06/29/20 01:25 06/29/20 01:54 Klor-Con 10 Meq Tablet Er PO 06/29/20 01:26 40 meq NOW ONE Administration Potassium Chloride 40 meq 06/29/20 15:20 06/29/20 16:05 Klor-Con 10 Meq Tablet Er PO 06/29/20 15:21 40 meq NOW ONE Administration Valsartan 80 mg 06/29/20 05:35 06/29/20 06:20 Diovan 80 Mg Tablet PO 06/29/20 05:36 80 mg NOW ONE Administration Social History Smoking Status: Former Smoker Cigarettes Packs Per Day: 1 Electronic Cigarette use?: No Frequency of Alcohol Use: None Hx Recreational Drug Use: No Drugs: None Hx Prescription Drug Abuse: No - Advance Directive Resuscitation Status: Full Code Family History Family History: Reviewed & Not Pertinent Parental Family History Reviewed: Yes Children Family History Reviewed: Yes Sibling(s) Family History Reviewed.: Yes Medication/Allergy Home Medications: Cyclosporine 0.05% Oph Emulsio [Restasis 0.05% Oph Emulsion Pf 0.4 ml] 1 drop OU BID 07/30/12 Metoprolol Tartrate [Lopressor 50 mg Tablet] 50 mg PO Q12 07/30/12 Montelukast Sodium [Singulair 10 mg Tablet] 10 mg PO QHS 07/30/12 Nitroglycerin [Nitro-Dur 15 mg (0.6 mg/1 Hr) Transderm Patch] 1 patch TD QAM 07/30/12 Ammonium Lactate 1 applic TOP ASDIR PRN 07/04/19 Atorvastatin Calcium [Lipitor 40 mg Tablet] 40 mg PO QHS 07/04/19 Exenatide Microspheres [Bydureon Pen] 2 mg PO TU@1000 07/04/19 Melatonin 10 mg PO QHS 07/04/19 Metformin HCl [Glucophage 500 mg Tablet] 500 mg PO BIDACBS 07/04/19 Nitroglycerin [Nitrostat 0.4 mg (1/150 Gr) Tabs 25/Bottle] 1 tab SL Q5MP PRN 07/04/19 Pantoprazole Sodium 40 mg PO DAILY 07/04/19 Rivaroxaban [Xarelto] 20 mg PO DAILY 07/04/19 Tramadol HCl [Ultram 50 mg Tablet] 50 mg PO Q6HP PRN 07/04/19 Telmisartan/Hydrochlorothiazid [Telmisartan-Hctz 40-12.5 mg Tb] 1 tab PO QPM 06/29/20 Allergies/Adverse Reactions: codeine [Codeine] Allergy (Verified 08/17/17 21:44) RESUSCITATION STATUS: The patient is a full code. The patient's daughter is her surrogate healthcare decision maker. Review of Systems Constitutional: ABSENT: chills, fever(s), headache(s), weight gain, weight loss Eyes: ABSENT: visual disturbances Ears: ABSENT: hearing changes Cardiovascular: PRESENT: chest pain - intermittently, dyspnea on exertion, edema. ABSENT: orthropnea, palpitations Respiratory: PRESENT: dyspnea. ABSENT: cough, hemoptysis Gastrointestinal: ABSENT: abdominal pain, constipation, diarrhea, hematemesis, hematochezia, nausea, vomiting Genitourinary: ABSENT: dysuria, hematuria Musculoskeletal: ABSENT: joint swelling Integumentary: ABSENT: rash, wounds Neurological: ABSENT: abnormal gait, abnormal speech, confusion, dizziness, focal weakness, syncope Psychiatric: ABSENT: anxiety, depression, homidical ideation, suicidal ideation Endocrine: ABSENT: cold intolerance, heat intolerance, menstrual abnormalities, polydipsia, polyuria Hematologic/Lymphatic: ABSENT: easy bleeding, easy bruising, lymphadenopathy PHYSICAL EXAMINATION: The patient is slightly overweight. But in no acute distress. She is dysarthric. Selected Entries 06/29/20 16:01 Temperature 98.0 F Temperature Oral Source Pulse Rate 64 Respiratory 18 Rate Blood Pressure 159/62 H Blood Pressure 94 Mean BP Location Right Arm BP Position Supine O2 Sat by Pulse 100 Oximetry Oxygen Flow 2.00 Rate Oxygen Delivery Nasal Cannula HEAD: Is atraumatic normocephalic. EYES: Method HEAD: Is atraumatic normocephalic. EYES:. Pupils are equal round regular reactive to light and accommodation. Extraocular movements are normal. There is no conjunctival pallor. There is no scleral icterus. EARS: Tympanic membranes are intact. External auditory canals are clear. NOSE: There is no deviated nasal septum. There is no inflammation of the nasal mucous membrane. MOUTH: Mucous membranes of the mouth are moist. Tongue is moist. There is no bleeding from the gums. There is no ulcers. THROAT: There is no redness of the oropharynx. There is no exudates. SKIN: There is no skin rashes. There is no petechia or ecchymosis. There is no skin lesions. NECK: Is supple. There is no JVD. Carotids are equal there is no bruit. There is no lymphadenopathy. There is no goiter. LUNGS: Trachea central. There is no accessory muscles of respiration use. Lungs show very few bibasilar fine rales. There is no rhonchi or wheezing. HEART: S1-S2 is heard. S1 is of normal intensity. There is no S3 gallop. There is no S4 gallop. There is systolic murmur in the left sternal border and the apex there is no rub. ABDOMEN: Soft. Nontender. There is no hepatosplenomegaly. Bowel sounds are well heard. EXTREMITIES: Femorals are diminished. There is mild femoral bruits. Leg pulses diminished. There is trace to mild pedal edema. There is no cyanosis or clubbing. There is no DVT or cellulitis. There is no calf tenderness. 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 There is mild right-sided weakness and dysarthria. The patient is dysarthric which is residual of her preprior CVA. PSYCHIATRIC: Most likely patient judgment insight are intact her affect is normal. EKG:SR] . SINUS RHYTHM [PLAA] . PROBABLE LEFT ATRIAL ABNORMALITY [LAFB] . LEFT ANTERIOR FASCICULAR BLOCK [LVH1] . LEFT VENTRICULAR HYPERTROPHY [T0IN] . BORDERLINE T ABNORMALITIES, INFERIOR LEADS [LQT] . PROLONGED QT INTERVAL Labs- Entire Visit 06/28/20 06/28/20 06/28/20 22:30 23:30 23:30 WBC 5.4 RBC 4.53 Hgb 10.4 L Hct 33.0 L MCV 73 L D MCH 22.9 L MCHC 31.4 L RDW 22.0 H Plt Count 231 Lymph % (Auto) 16.4 Stark % (Auto) 8.0 Eos % (Auto) 1.0 Baso % (Auto) 0.9 Absolute Neuts (auto) 4.0 Absolute Lymphs (auto) 0.9 Absolute Monos (auto) 0.4 Absolute Eos (auto) 0.1 Absolute Basos (auto) 0.0 Seg Neutrophils % 73.7 VBG pH VBG pCO2 VBG HCO3 VBG Base Excess Sodium 141.8 Potassium 3.3 L Chloride 104 Carbon Dioxide 27 Anion Gap 11 BUN 15 Creatinine 0.92 Est GFR ( Amer) > 60 Est GFR (MDRD) Non-Af > 60 Glucose 92 POC Glucose Calcium 9.3 Phosphorus 3.6 Magnesium 1.9 Total Bilirubin 1.5 H Direct Bilirubin 0.3 Neonat Total Bilirubin Not Reportable Neonat Direct Bilirubin Not Reportable Neonat Indirect Bili Not Reportable AST 26 ALT 28 Alkaline Phosphatase 61 Troponin I NT-Pro-B Natriuret Pep Total Protein 6.9 Albumin 3.7 06/28/20 06/28/20 06/29/20 23:30 23:30 00:45 WBC RBC Hgb Hct MCV MCH MCHC RDW Plt Count Lymph % (Auto) Stark % (Auto) Eos % (Auto) Baso % (Auto) Absolute Neuts (auto) Absolute Lymphs (auto) Absolute Monos (auto) Absolute Eos (auto) Absolute Basos (auto) Seg Neutrophils % VBG pH 7.38 VBG pCO2 50.3 VBG HCO3 28.8 VBG Base Excess 2.8 Sodium Potassium Chloride Carbon Dioxide Anion Gap BUN Creatinine Est GFR ( Amer) Est GFR (MDRD) Non-Af Glucose POC Glucose Calcium Phosphorus Magnesium Total Bilirubin Direct Bilirubin Neonat Total Bilirubin Neonat Direct Bilirubin Neonat Indirect Bili AST ALT Alkaline Phosphatase Troponin I 0.073 NT-Pro-B Natriuret Pep 32277 H Total Protein Albumin 06/29/20 06/29/20 06/29/20 08:03 11:49 16:13 WBC RBC Hgb Hct MCV MCH MCHC RDW Plt Count Lymph % (Auto) Stark % (Auto) Eos % (Auto) Baso % (Auto) Absolute Neuts (auto) Absolute Lymphs (auto) Absolute Monos (auto) Absolute Eos (auto) Absolute Basos (auto) Seg Neutrophils % VBG pH VBG pCO2 VBG HCO3 VBG Base Excess Sodium Potassium Chloride Carbon Dioxide Anion Gap BUN Creatinine Est GFR ( Amer) Est GFR (MDRD) Non-Af Glucose POC Glucose 77 80 84 Calcium Phosphorus Magnesium Total Bilirubin Direct Bilirubin Neonat Total Bilirubin Neonat Direct Bilirubin Neonat Indirect Bili AST ALT Alkaline Phosphatase Troponin I NT-Pro-B Natriuret Pep Total Protein Albumin 06/29/20 21:16 WBC RBC Hgb Hct MCV MCH MCHC RDW Plt Count Lymph % (Auto) Stark % (Auto) Eos % (Auto) Baso % (Auto) Absolute Neuts (auto) Absolute Lymphs (auto) Absolute Monos (auto) Absolute Eos (auto) Absolute Basos (auto) Seg Neutrophils % VBG pH VBG pCO2 VBG HCO3 VBG Base Excess Sodium Potassium Chloride Carbon Dioxide Anion Gap BUN Creatinine Est GFR ( Amer) Est GFR (MDRD) Non-Af Glucose POC Glucose 95 Calcium Phosphorus Magnesium Total Bilirubin Direct Bilirubin Neonat Total Bilirubin Neonat Direct Bilirubin Neonat Indirect Bili AST ALT Alkaline Phosphatase Troponin I NT-Pro-B Natriuret Pep Total Protein Albumin Chest X-Ray 06/28/20 23:22 IMPRESSION: Pulmonary edema with small pleural effusions. Cervical Spine CT 06/29/20 00:19 IMPRESSION: No acute fracture or subluxation. Head CT 06/29/20 00:19 IMPRESSION: No acute intracranial findings. Facial Bones CT 06/29/20 00:28 IMPRESSION: No post-traumatic findings. IMPRESSION/RECOMMENDATION: 1. Acute left ventricle diastolic heart failure: This is secondary to patient's uncontrolled hypertension and diastolic dysfunction causing heart failure. Would recommend increasing the patient's ARB, continue patient on Lasix. Will get an outpatient echocardiogram once the patient's heart failure is settled. Note with the treatment the patient is already feeling much better. 2. Uncontrolled hypertension on admission to the emergency room. Blood pressure still not very well controlled. Would recommend increasing the patient's antihypertensive medication. 3. Exertional angina: Add nitrates. This is most likely diagnosis, although the patient is not able to give a good history. 4. Coronary artery disease: Prior history of pulseless electrical activity causing cardiac arrest resulting in the patient having 2 stents placed in the right coronary artery. No recurrence of sudden . Patient appears to have anginal symptoms, compounded by both hypertension and anemia. Hence we will add nitrates. 5. Paroxysmal atrial fibrillation: No recurrence. Patient on Xarelto continue Xarelto. 6. Diabetes mellitus: [id number]: Continue antidiabetic's and Accu- Cheks as per protocol. 7. Anemia:? Cause watch patient's hemoglobin. 8. Peripheral arterial disease: History of left femoral arterial angioplasty in 2016. 9. History of CVA with residual mild right-sided weakness and dysarthria. 10. Dysarthria. 11. Hyperlipidemia: Continue statins check lipid levels in a.m. 12. Hypokalemia: Recommend replacing patient potassium which is being done. Medications reviewed. Medications added and adjusted. Medical decision making is of high complexity. Medical management and medical regimen discussed with the attending provider Dr. Scott. Discussed with the patient and the patient's daughter. Will follow
[2020-06-30] MEDS ORDERED: PANTOPRAZOLE SODIUM 40 MG TABLET.DR PO SCH (06:00)
[2020-06-30 06:47] LABS: ABSOLUTE BASOPHILS # (AUTO) 0.1 10^3/uL (0.0-0.2); ABSOLUTE EOSINOPHILS # (AUTO) 0.2 10^3/uL (0.0-0.6); ABSOLUTE MONOCYTES (AUTO) 0.4 10^3/uL (0.1-1.4); BASOPHILS % (AUTO) 1.3 % (0-2); EOSINOPHILS % (AUTO) 4.1 % (0-6); HEMATOCRIT 33.5 % (36.0-47.0); HEMOGLOBIN 10.5 g/dL (12.0-15.5); LYMPHOCYTES % (AUTO) 22.1 % (13-45); MEAN CORPUSCULAR HGB CONC 31.3 g/dL (32.0-36.0); MEAN CORPUSCULAR VOLUME 74 fl (80-97); PLATELET COUNT 200 10^3/uL (150-450); RED BLOOD COUNT 4.56 10^6/uL (3.72-5.28); RED CELL DISTRIBUTION WIDTH 21.3 % (11.5-14.0); SEGMENTED NEUTROPHILS % (AUTO) 63.5 % (42-78); TOTAL CELLS COUNTED % (AUTO) 100 %; WHITE BLOOD COUNT 4.7 10^3/uL (4.0-10.5)
[2020-06-30 07:10] LABS: ALBUMIN 3.3 g/dL (3.5-5.0); ALKALINE PHOSPHATASE 52 U/L (38-126); ANION GAP 8 (5-19); ASPARTATE AMINO TRANSFERASE 22 U/L (14-36); BILIRUBIN,DIRECT 0.4 mg/dL (0.0-0.4); BILIRUBIN,TOTAL 1.1 mg/dL (0.2-1.3); BLOOD UREA NITROGEN 19 mg/dL (7-20); CALCIUM 9.1 mg/dL (8.4-10.2); CARBON DIOXIDE 29 mmol/L (22-30); CHLORIDE 104 mmol/L (98-107); GLUCOSE 82 mg/dL (75-110); POTASSIUM 4.7 mmol/L (3.6-5.0); TOTAL PROTEIN 6.1 g/dL (6.3-8.2)
[2020-06-30 07:18] LABS: ANISOCYTOSIS 3+; HYPOCHROMASIA 2+; OVALOCYTES 1+; PLATELET COMMENT ADEQUATE; POLYCHROMASIA SLIGHT
[2020-06-30] MEDS: INSULIN LISPRO 100 UNIT/ML 3 ML VIAL SUBCUT SCH ×4 (08:15→21:54)
[2020-06-30] MEDS: NITROGLYCERIN 15 MG (0.6 MG/1 HR) PATCH.TD24 TD SCH (08:24)
[2020-06-30] MEDS: METFORMIN HCL 500 MG TABLET PO SCH ×2 (08:25→17:04)
[2020-06-30] MEDS: PANTOPRAZOLE SODIUM 40 MG TABLET.DR PO SCH (08:26)
[2020-06-30] MEDS: VALSARTAN 160 MG TABLET PO SCH (09:48)
[2020-06-30] MEDS: METOPROLOL SUCCINATE 50 MG TAB.SR.24H PO SCH (09:51)
[2020-06-30] MEDS: FUROSEMIDE INJ/PF 40 MG/4 ML SDV IV SCH (09:51)
[2020-06-30] MEDS: CYCLOSPORINE 0.05% OPH EMULSIO 0.4 ML DROPERETTE OU SCH ×2 (09:53→17:05)
[2020-06-30] MEDS: AMMONIUM LACTATE 12% LOTION 225GM BOTTLE TP SCH ×2 (09:53→17:05)
[2020-06-30] MEDS: TRAMADOL HCL 50 MG TABLET PO PRN ×2 (17:04→23:59)
[2020-06-30] MEDS: ATORVASTATIN CALCIUM 40 MG TABLET PO SCH (17:04)
[2020-06-30] MEDS: RIVAROXABAN 10 MG TABLET PO SCH (17:04)
--- NOTE | 2020-06-30 17:26 | Progress Note ---
Provider Note Provider Note: Cardiology progress note by Dr. Sun Baez on 06/30/2020 SUBJECTIVE the patient states that shortness of breath is improved and there is no rest shortness of breath. She has no PND. She still has some degree of orthopnea. There is only trace leg edema. She has no anginal symptoms. There is no chest pain or discomfort. There is no arrhythmias seen on the monitor. There is no recurrence of atrial fibrillation. There is no bleeding on oral anticoagulation. PHYSICAL EXAMINATION: The patient appears to be mildly overweight in no acute distress. Selected Entries 06/30/20 06/30/20 11:52 12:00 Temperature 97.2 F Temperature Oral Source Heart Rate ( 54 Monitors) Respiratory 16 Rate Blood Pressure 148/57 H Blood Pressure 87 Mean BP Location Right Arm BP Position Supine O2 Sat by Pulse 100 Oximetry Oxygen Flow 1.50 Rate Oxygen Delivery Nasal Cannula Method HEAD: Is atraumatic normocephalic. EYES:. Pupils are equal round regular reactive to light and accommodation. Extraocular movements are normal. There is no conjunctival pallor. There is no scleral icterus. EARS: Tympanic membranes are intact. External auditory canals are clear. NOSE: There is no deviated nasal septum. There is no inflammation of the nasal mucous membrane. MOUTH: Mucous membranes of the mouth are moist. Tongue is moist. There is no bleeding from the gums. There is no ulcers. THROAT: There is no redness of the oropharynx. There is no exudates. SKIN: There is no skin rashes. There is no petechia or ecchymosis. There is no skin lesions. NECK: Is supple. There is no JVD. Carotids are equal there is no bruit. There is no lymphadenopathy. There is no goiter. LUNGS: Trachea central. There is no accessory muscles of respiration use. Lungs show very few bibasilar fine rales. There is no rhonchi or wheezing. HEART: S1-S2 is heard. S1 is of normal intensity. There is no S3 gallop. There is no S4 gallop. There is systolic murmur in the left sternal border and the apex there is no rub. ABDOMEN: Soft. Nontender. There is no hepatosplenomegaly. Bowel sounds are well heard. EXTREMITIES: Femorals are diminished. There is mild femoral bruits. Leg pulses diminished. There is trace to pedal edema. There is no cyanosis or clubbing. There is no DVT or cellulitis. There is no calf tenderness. 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 There is mild right-sided weakness and dysarthria. The patient is dysarthric which is residual of her preprior CVA. PSYCHIATRIC: Most likely patient judgment insight are intact her affect is normal. Labs- All tests 24 hr 06/29/20 06/30/20 06/30/20 21:16 05:40 05:40 WBC 4.7 RBC 4.56 Hgb 10.5 L Hct 33.5 L MCV 74 L MCH 23.0 L MCHC 31.3 L RDW 21.3 H Plt Count 200 Lymph % (Auto) 22.1 Whiteside % (Auto) 9.0 Eos % (Auto) 4.1 Baso % (Auto) 1.3 Absolute Neuts (auto) 3.0 Absolute Lymphs (auto) 1.0 Absolute Monos (auto) 0.4 Absolute Eos (auto) 0.2 Absolute Basos (auto) 0.1 Seg Neutrophils % 63.5 Platelet Comment ADEQUATE Polychromasia SLIGHT Hypochromasia 2+ Anisocytosis 3+ Microcytosis 1+ Ovalocytes 1+ Sodium 140.5 Potassium 4.7 Chloride 104 Carbon Dioxide 29 Anion Gap 8 BUN 19 Creatinine 0.97 Est GFR ( Amer) > 60 Est GFR (MDRD) Non-Af 56 L Glucose 82 POC Glucose 95 Calcium 9.1 Magnesium 2.2 Total Bilirubin 1.1 Direct Bilirubin 0.4 Neonat Total Bilirubin Not Reportable Neonat Direct Bilirubin Not Reportable Neonat Indirect Bili Not Reportable AST 22 ALT 21 Alkaline Phosphatase 52 Total Protein 6.1 L Albumin 3.3 L 06/30/20 06/30/20 06/30/20 08:00 11:52 16:45 WBC RBC Hgb Hct MCV MCH MCHC RDW Plt Count Lymph % (Auto) Whiteside % (Auto) Eos % (Auto) Baso % (Auto) Absolute Neuts (auto) Absolute Lymphs (auto) Absolute Monos (auto) Absolute Eos (auto) Absolute Basos (auto) Seg Neutrophils % Platelet Comment Polychromasia Hypochromasia Anisocytosis Microcytosis Ovalocytes Sodium Potassium Chloride Carbon Dioxide Anion Gap BUN Creatinine Est GFR ( Amer) Est GFR (MDRD) Non-Af Glucose POC Glucose 75 85 89 Calcium Magnesium Total Bilirubin Direct Bilirubin Neonat Total Bilirubin Neonat Direct Bilirubin Neonat Indirect Bili AST ALT Alkaline Phosphatase Total Protein Albumin Chest X-Ray 06/28/20 23:22 IMPRESSION: Pulmonary edema with small pleural effusions. Cervical Spine CT 06/29/20 00:19 IMPRESSION: No acute fracture or subluxation. Head CT 06/29/20 00:19 IMPRESSION: No acute intracranial findings. Facial Bones CT 06/29/20 00:28 IMPRESSION: No post-traumatic findings. IMPRESSION/RECOMMENDATION: 1. Acute left ventricle diastolic heart failure: This is secondary to patient's uncontrolled hypertension and diastolic dysfunction causing heart failure. Would recommend increasing the patient's ARB, continue patient on Lasix. Will get an outpatient echocardiogram once the patient's heart failure is settled. Note with the treatment the patient is already feeling much better. 2. Uncontrolled hypertension on admission to the emergency room. Blood pressure still not very well controlled. Would recommend increasing the patient's antihypertensive medication. 3. Exertional angina: Add nitrates. This is most likely diagnosis, although the patient is not able to give a good history. 4. Coronary artery disease: Prior history of pulseless electrical activity causing cardiac arrest resulting in the patient having 2 stents placed in the right coronary artery. No recurrence of sudden . Patient appears to have anginal symptoms, compounded by both hypertension and anemia. Hence we will add nitrates. 5. Paroxysmal atrial fibrillation: No recurrence. Patient on Xarelto continue Xarelto. 6. Diabetes mellitus: [id number]: Continue antidiabetic's and Accu- Cheks as per protocol. 7. Anemia:? Cause watch patient's hemoglobin. 8. Peripheral arterial disease: History of left femoral arterial angioplasty in 2016. 9. History of CVA with residual mild right-sided weakness and dysarthria. 10. Dysarthria. 11. Hyperlipidemia: Continue statins check lipid levels in a.m. 12. Hypokalemia: This is resolved Medications reviewed. Medical regimen management plan discussed with attending Case reviewed. Medical decision making is of moderate complexity. 40 minutes spent on the patient with more than 50% of time spent in direct patient care. Will follow
[2020-06-30] MEDS: NORMAL SALINE 1000 ML 1,000 ML IV PRN (18:17)
--- NOTE | 2020-06-30 18:40 | PDOC PROGRESS REPORT ---
Subjective Progress Note for:: 06/30/20 Subjective:: No chest pain or difficulty with breathing. No fever or chills. No nausea, vomiting or abdominal pain. Reason For Visit: ACUTE CONGESTIVE HEART FAILURE,HTN,CAD S/P STENT Physical Exam Vital Signs: Temp Pulse Resp BP Pulse Ox 98.5 F 61 16 158/55 H 100 06/30/20 16:44 06/30/20 16:44 06/30/20 16:44 06/30/20 18:18 06/30/20 16:44 Intake & Output 06/29/20 06/30/20 07/01/20 06:59 06:59 06:59 Intake Total 764 497 Output Total 2200 1150 Balance -2200 -386 497 Weight 66.9 kg General appearance: PRESENT: no acute distress Head exam: PRESENT: atraumatic, normocephalic Eye exam: PRESENT: conjunctiva pink. ABSENT: scleral icterus Mouth exam: PRESENT: moist Respiratory exam: PRESENT: clear to auscultation raimundo Cardiovascular exam: PRESENT: RRR, +S1, +S2. ABSENT: diastolic murmur, rubs, systolic murmur Vascular exam: ABSENT: pallor GI/Abdominal exam: PRESENT: normal bowel sounds, soft. ABSENT: distended, guarding, mass, organolmegaly, rebound, tenderness Extremities exam: ABSENT: pedal edema Neurological exam: PRESENT: alert, awake, oriented to person, oriented to place, oriented to time, oriented to situation, CN II-XII grossly intact. ABSENT: motor sensory deficit Psychiatric exam: PRESENT: appropriate affect, normal mood. ABSENT: homicidal ideation, suicidal ideation Skin exam: PRESENT: dry, warm Results Laboratory Results: 06/30/20 05:40 06/30/20 05:40 06/30/20 06/30/20 05:40 05:40 WBC 4.7 RBC 4.56 Hgb 10.5 L Hct 33.5 L MCV 74 L MCH 23.0 L MCHC 31.3 L RDW 21.3 H Plt Count 200 Seg Neutrophils % 63.5 Sodium 140.5 Potassium 4.7 Chloride 104 Carbon Dioxide 29 Anion Gap 8 BUN 19 Creatinine 0.97 Est GFR ( Amer) > 60 Glucose 82 Calcium 9.1 Magnesium 2.2 Total Bilirubin 1.1 AST 22 Alkaline Phosphatase 52 Total Protein 6.1 L Albumin 3.3 L 06/28/20 06/28/20 23:30 23:30 Troponin I 0.073 NT-Pro-B Natriuret Pep 45811 H Impressions: Chest X-Ray 06/28/20 23:22 IMPRESSION: Pulmonary edema with small pleural effusions. Cervical Spine CT 06/29/20 00:19 IMPRESSION: No acute fracture or subluxation. Head CT 06/29/20 00:19 IMPRESSION: No acute intracranial findings. Facial Bones CT 06/29/20 00:28 IMPRESSION: No post-traumatic findings. Assessment & Plan - Diagnosis (1) Acute CHF (congestive heart failure) Qualifiers: Heart failure type: diastolic Qualified Code(s): I50.31 - Acute diastolic (congestive) heart failure Is this a current diagnosis for this admission?: Yes (2) HTN (hypertension) Qualifiers: Hypertension type: essential hypertension Qualified Code(s): I10 - Essential (primary) hypertension Is this a current diagnosis for this admission?: Yes (3) CAD (coronary artery disease) Qualifiers: Coronary Disease-Associated Artery/Lesion type: [place] artery Associated angina: without angina Is this a current diagnosis for this admission?: Yes (4) HLD (hyperlipidemia) Qualifiers: Hyperlipidemia type: unspecified Qualified Code(s): E78.5 - Hyperlipidemia, unspecified Is this a current diagnosis for this admission?: Yes (5) Type 2 diabetes mellitus with obesity Is this a current diagnosis for this admission?: Yes (6) COPD (chronic obstructive pulmonary disease) Qualifiers: Emphysema type: unspecified Is this a current diagnosis for this admission?: Yes (7) Anemia Qualifiers: Anemia type: iron deficiency Iron deficiency anemia type: unspecified iron deficiency Qualified Code(s): D50.9 - Iron deficiency anemia, unspecified Is this a current diagnosis for this admission?: Yes (8) GERD (gastroesophageal reflux disease) Qualifiers: Esophagitis presence: esophagitis presence not specified Qualified Code(s): K21.9 - Gastro-esophageal reflux disease without esophagitis Is this a current diagnosis for this admission?: Yes (9) Dysarthria as late effect of stroke Is this a current diagnosis for this admission?: Yes - Time Time Spent with patient: 25-34 minutes Level of Care: IMCU Medications reviewed and adjusted accordingly: Yes Anticipated discharge: Home with Homehealth Anticipated DC Timeframe: within 72 hours - Inpatient Certification Based on my medical assessment, after consideration of the patient's comorbidities, presenting symptoms, or acuity I expect that the services needed warrant INPATIENT care.: Yes I certify that my determination is in accordance with my understanding of Medicare's requirements for reasonable and necessary INPATIENT services [42 CFR 412.3e].: Yes Medical Necessity: Significant Comorbidiites Make Outpatient Treatment Too Risky, Need Close Monitoring Due to Risk of Patient Decompensation, Need For Continuous Telemetry Monitoring, Risk of Complication if Not Cared For in Hospital, Risk of Diagnosis Which Will Require Inpatient Eval/Care/Monitoring Post Hospital Care: D/C Edgerman Documentation - Plan Summary Plan Summary: Increase Diovan to 320 mg po daily. Maintain on all other current medication management. Cardiology input appreciated.
[2020-06-30] MEDS ORDERED: VALSARTAN 160 MG TABLET PO ONE (19:00)
[2020-07-01] MEDS: INSULIN LISPRO 100 UNIT/ML 3 ML VIAL SUBCUT SCH ×4 (09:04→23:43)
[2020-07-01] MEDS: FUROSEMIDE INJ/PF 40 MG/4 ML SDV IV SCH (09:11)
[2020-07-01] MEDS: METFORMIN HCL 500 MG TABLET PO SCH ×2 (09:12→17:11)
[2020-07-01] MEDS: METOPROLOL SUCCINATE 50 MG TAB.SR.24H PO SCH (09:12)
[2020-07-01] MEDS: NITROGLYCERIN 15 MG (0.6 MG/1 HR) PATCH.TD24 TD SCH (09:15)
[2020-07-01] MEDS: TRAMADOL HCL 50 MG TABLET PO PRN (09:15)
[2020-07-01] MEDS: PANTOPRAZOLE SODIUM 40 MG TABLET.DR PO SCH (09:16)
[2020-07-01] MEDS: AMMONIUM LACTATE 12% LOTION 225GM BOTTLE TP SCH ×2 (09:17→17:12)
[2020-07-01] MEDS: CYCLOSPORINE 0.05% OPH EMULSIO 0.4 ML DROPERETTE OU SCH ×2 (09:17→17:11)
[2020-07-01] MEDS ORDERED: (PENDING PHARMACY ID) (Exenatide Microspheres [Bydureon Pen] 2 MG) PO SCH (10:00)
[2020-07-01] MEDS ORDERED: VALSARTAN 160 MG TABLET PO SCH (10:00)
[2020-07-01] MEDS ORDERED: ONDANSETRON HCL INJ/PF 4 MG/2 ML SDV IV PRN (10:30)
[2020-07-01] MEDS: ATORVASTATIN CALCIUM 40 MG TABLET PO SCH (17:11)
[2020-07-01] MEDS: RIVAROXABAN 10 MG TABLET PO SCH (17:11)
--- NOTE | 2020-07-01 19:17 | PDOC PROGRESS REPORT ---
Subjective Progress Note for:: 07/01/20 Subjective:: Patient denied any chest pain or difficulty with breathing. No fever or chills. No nausea, vomiting or abdominal pain. Reason For Visit: ACUTE CONGESTIVE HEART FAILURE,HTN,CAD S/P STENT Physical Exam Vital Signs: Temp Pulse Resp BP Pulse Ox 98.0 F 56 L 18 178/54 H 100 06/30/20 23:58 07/01/20 02:00 06/30/20 23:58 06/30/20 23:58 07/01/20 01:17 Intake & Output 06/29/20 06/30/20 07/01/20 06:59 06:59 06:59 Intake Total 764 1432 Output Total 2200 1150 2400 Balance -2200 -386 -968 Weight 66.9 kg Physical Exam: General appearance: PRESENT: no acute distress Head exam: PRESENT: atraumatic, normocephalic Eye exam: PRESENT: conjunctiva pink. ABSENT: pallor, scleral icterus Mouth exam: PRESENT: moist Respiratory exam: PRESENT: clear to auscultation raimundo Cardiovascular exam: PRESENT: RRR, +S1, +S2. ABSENT: diastolic murmur, rubs, systolic murmur GI/Abdominal exam: PRESENT: normal bowel sounds, soft. ABSENT: distended, guarding, mass, organomegaly, rebound, tenderness Extremities exam: ABSENT: pedal edema Neurological exam: PRESENT: alert, awake, oriented to person, oriented to place, oriented to time, oriented to situation, CN II-XII grossly intact. ABSENT: motor sensory deficit Psychiatric exam: PRESENT: appropriate affect, normal mood. ABSENT: homicidal ideation, suicidal ideation Skin exam: PRESENT: dry, warm Results Laboratory Results: 06/30/20 05:40 06/30/20 05:40 06/30/20 06/30/20 05:40 05:40 WBC 4.7 RBC 4.56 Hgb 10.5 L Hct 33.5 L MCV 74 L MCH 23.0 L MCHC 31.3 L RDW 21.3 H Plt Count 200 Seg Neutrophils % 63.5 Sodium 140.5 Potassium 4.7 Chloride 104 Carbon Dioxide 29 Anion Gap 8 BUN 19 Creatinine 0.97 Est GFR ( Amer) > 60 Glucose 82 Calcium 9.1 Magnesium 2.2 Total Bilirubin 1.1 AST 22 Alkaline Phosphatase 52 Total Protein 6.1 L Albumin 3.3 L 06/28/20 06/28/20 23:30 23:30 Troponin I 0.073 NT-Pro-B Natriuret Pep 53125 H Impressions: Chest X-Ray 06/28/20 23:22 IMPRESSION: Pulmonary edema with small pleural effusions. Cervical Spine CT 06/29/20 00:19 IMPRESSION: No acute fracture or subluxation. Head CT 06/29/20 00:19 IMPRESSION: No acute intracranial findings. Facial Bones CT 06/29/20 00:28 IMPRESSION: No post-traumatic findings. Assessment & Plan - Diagnosis (1) Acute CHF (congestive heart failure) Qualifiers: Heart failure type: diastolic Qualified Code(s): I50.31 - Acute diastolic (congestive) heart failure Is this a current diagnosis for this admission?: Yes (2) HTN (hypertension) Qualifiers: Hypertension type: essential hypertension Qualified Code(s): I10 - Essential (primary) hypertension Is this a current diagnosis for this admission?: Yes (3) CAD (coronary artery disease) Qualifiers: Coronary Disease-Associated Artery/Lesion type: [place] artery Associated angina: without angina Is this a current diagnosis for this admission?: Yes (4) HLD (hyperlipidemia) Qualifiers: Hyperlipidemia type: unspecified Qualified Code(s): E78.5 - Hyperlipidemia, unspecified Is this a current diagnosis for this admission?: Yes (5) Type 2 diabetes mellitus with obesity Is this a current diagnosis for this admission?: Yes (6) COPD (chronic obstructive pulmonary disease) Qualifiers: Emphysema type: unspecified Is this a current diagnosis for this admission?: Yes (7) Anemia Qualifiers: Anemia type: iron deficiency Iron deficiency anemia type: unspecified iron deficiency Qualified Code(s): D50.9 - Iron deficiency anemia, unspecified Is this a current diagnosis for this admission?: Yes (8) GERD (gastroesophageal reflux disease) Qualifiers: Esophagitis presence: esophagitis presence not specified Qualified Code(s): K21.9 - Gastro-esophageal reflux disease without esophagitis Is this a current diagnosis for this admission?: Yes (9) Dysarthria as late effect of stroke Is this a current diagnosis for this admission?: Yes - Time Time Spent with patient: 25-34 minutes Level of Care: IMCU Medications reviewed and adjusted accordingly: Yes Anticipated discharge: Home with Homehealth Anticipated DC Timeframe: within 72 hours - Inpatient Certification Based on my medical assessment, after consideration of the patient's comorbidities, presenting symptoms, or acuity I expect that the services needed warrant INPATIENT care.: Yes I certify that my determination is in accordance with my understanding of Medicare's requirements for reasonable and necessary INPATIENT services [42 CFR 412.3e].: Yes Medical Necessity: Significant Comorbidiites Make Outpatient Treatment Too [place], Need Close Monitoring Due to Risk of Patient Decompensation, Need For Continuous Telemetry Monitoring, Risk of Complication if Not Cared For in Hospital, Risk of Diagnosis Which Will Require Inpatient Eval/Care/Monitoring Post Hospital Care: D/C Hand Tacker Documentation - Plan Summary Plan Summary: Increase Diovan to 320 mg po daily. Maintain on all other current medication management. Possible d/c in next 48 hours if her blood pressure is adequately controlled.
[2020-07-01] MEDS ORDERED: HYDRALAZINE HCL 50 MG TABLET ONE (20:17)
[2020-07-01] MEDS ORDERED: HYDRALAZINE HCL 50 MG TABLET PO ONE (20:45)
--- NOTE | 2020-07-01 22:11 | Progress Note ---
Provider Note Provider Note: CARDIOLOGY PROGRESS NOTE by Dr. Sun Baez on 07/01/2020. SUBJECTIVE: The patient denies any chest pain or discomfort. There is no arrhythmias seen on the monitor. Especially there is no recurrence of atrial fibrillation. There is no bleeding on Eliquis. Her blood pressure is still difficult to control her Diovan has been increased to 320 mg p.o. daily. Will change that to 160 mg p.o. every 12 hours. She has no further anginal symptoms. She has no PND orthopnea and her leg edema is only trace. PHYSICAL EXAMINATION: The patient is slightly overweight. In no acute distress. Selected Entries 07/01/20 16:32 Temperature 98.1 F Temperature Oral Source Pulse Rate 57 L Respiratory 16 Rate Blood Pressure 165/59 H Blood Pressure 94 Mean O2 Sat by Pulse 100 Oximetry Oxygen Flow 1.50 Rate Oxygen Delivery Nasal Cannula Method HEAD: Is atraumatic normocephalic. EYES:. Pupils are equal round regular reactive to light and accommodation. Extraocular movements are normal. There is no conjunctival pallor. There is no scleral icterus. EARS: Tympanic membranes are intact. External auditory canals are clear. NOSE: There is no deviated nasal septum. There is no inflammation of the nasal mucous membrane. MOUTH: Mucous membranes of the mouth are moist. Tongue is moist. There is no bleeding from the gums. There is no ulcers. THROAT: There is no redness of the oropharynx. There is no exudates. SKIN: There is no skin rashes. There is no petechia or ecchymosis. There is no skin lesions. NECK: Is supple. There is no JVD. Carotids are equal there is no bruit. There is no lymphadenopathy. There is no goiter. LUNGS: Trachea central. There is no accessory muscles of respiration use. Lungs show very few bibasilar fine rales. There is no rhonchi or wheezing. HEART: S1-S2 is heard. S1 is of normal intensity. There is no S3 gallop. There is no S4 gallop. There is systolic murmur in the left sternal border and the apex there is no rub. ABDOMEN: Soft. Nontender. There is no hepatosplenomegaly. Bowel sounds are well heard. EXTREMITIES: Femorals are diminished. There is mild femoral bruits. Leg pulses diminished. There is trace to pedal edema. There is no cyanosis or clubbing. There is no DVT or cellulitis. There is no calf tenderness. DEVELOPMENT AND PLANNING ENGINEER: The patient is conscious awake alert oriented x3. There is mild right-sided weakness and dysarthria. The patient is dysarthric which is residual of her preprior CVA. PSYCHIATRIC: Most likely patient judgment insight are intact her affect is normal. Labs- All tests 24 hr 07/01/20 07/01/20 07/01/20 07:46 12:50 16:31 POC Glucose 76 90 80 07/01/20 21:46 POC Glucose 97 Chest X-Ray 06/28/20 23:22 IMPRESSION: Pulmonary edema with small pleural effusions. Cervical Spine CT 06/29/20 00:19 IMPRESSION: No acute fracture or subluxation. Head CT 06/29/20 00:19 IMPRESSION: No acute intracranial findings. Facial Bones CT 06/29/20 00:28 IMPRESSION: No post-traumatic findings. MPRESSION/RECOMMENDATION: 1. Acute left ventricle diastolic heart failure: This is secondary to patient's uncontrolled hypertension and diastolic dysfunction causing heart failure. Would recommend increasing the patient's ARB, continue patient on Lasix. Will get an outpatient echocardiogram once the patient's heart failure is settled. Note with the treatment the patient is already feeling much better. 2. Uncontrolled hypertension on admission to the emergency room. Blood pressu re still not very well controlled. Would recommend increasing the patient's antihypertensive medication. After discussion with Dr. Scott will change the patient's Diovan to 160 mg p.o. every 12 hours instead of 320 mg once a day. We will also see if we can add another antihypertensive. 3. Exertional angina: Add nitrates. This is most likely diagnosis, although the patient is not able to give a good history. 4. Coronary artery disease: Prior history of pulseless electrical activity causing cardiac arrest resulting in the patient having 2 stents placed in the right coronary artery. No recurrence of sudden . Patient appears to have anginal symptoms, compounded by both hypertension and anemia. Hence we will add nitrates. 5. Paroxysmal atrial fibrillation: No recurrence. Patient on Xarelto continue Xarelto. 6. Diabetes mellitus: [id number]: Continue antidiabetic's and Accu- Cheks as per protocol. 7. Anemia:? Cause watch patient's hemoglobin. 8. Peripheral arterial disease: History of left femoral arterial angioplasty in 2016. 9. History of CVA with residual mild right-sided weakness and dysarthria. 10. Dysarthria. 11. Hyperlipidemia: Continue statins check lipid levels in a.m. 12. Hypokalemia: This is resolved Medications reviewed. Medical regimen management plan discussed with attending the attending physician. Due to need to adjust medications and add medications, medical decision making is of high complexity. Complexity. 40 minutes spent on the patient with more than 50% of time spent in direct patient care. Will follow
[2020-07-01] MEDS: AMLODIPINE BESYLATE 5 MG TABLET PO SCH (23:48)
[2020-07-02] MEDS: NORMAL SALINE 1000 ML 1,000 ML IV PRN (05:38)
[2020-07-02] MEDS: INSULIN LISPRO 100 UNIT/ML 3 ML VIAL SUBCUT SCH ×4 (07:45→22:31)
[2020-07-02] MEDS: METFORMIN HCL 500 MG TABLET PO SCH ×2 (08:29→17:07)
[2020-07-02] MEDS: NITROGLYCERIN 15 MG (0.6 MG/1 HR) PATCH.TD24 TD SCH (08:30)
[2020-07-02] MEDS: PANTOPRAZOLE SODIUM 40 MG TABLET.DR PO SCH (08:30)
[2020-07-02] MEDS: METOPROLOL SUCCINATE 50 MG TAB.SR.24H PO SCH (09:26)
[2020-07-02] MEDS: AMLODIPINE BESYLATE 5 MG TABLET PO SCH ×2 (09:26→22:32)
[2020-07-02] MEDS: VALSARTAN 160 MG TABLET PO SCH ×2 (09:26→22:30)
[2020-07-02] MEDS: FUROSEMIDE 40 MG TABLET PO SCH (09:26)
[2020-07-02] MEDS: CYCLOSPORINE 0.05% OPH EMULSIO 0.4 ML DROPERETTE OU SCH ×2 (09:26→17:07)
[2020-07-02] MEDS: AMMONIUM LACTATE 12% LOTION 225GM BOTTLE TP SCH ×2 (09:27→17:12)
[2020-07-02] MEDS: ATORVASTATIN CALCIUM 40 MG TABLET PO SCH (17:07)
[2020-07-02] MEDS: RIVAROXABAN 10 MG TABLET PO SCH (17:07)
--- NOTE | 2020-07-02 20:31 | PDOC PROGRESS REPORT ---
Subjective Progress Note for:: 07/02/20 Subjective:: Patient seen by the bedside, I was advised by Dr. Omalley, cardiology, the patient was ready for discharge, I am presently covering Dr. Scott's patient. Patient was examined, she is very dysarthric, she was hardly able to self transfer from bed to chair, we have to assist the patient myself and the RN nurse. I was later informed that she lives by herself, initially I thought she lives with her children. There is no way this lady can take care of her self, she is hardly able to ambulate, gait is very unsteady she has a history of stroke, at the minimum she will need to be transferred to a long term home for rehabilitation for muscle strengthening etc. and family needs to discuss disposition. Reason For Visit: ACUTE CONGESTIVE HEART FAILURE,HTN,CAD S/P STENT Physical Exam Vital Signs: Temp Pulse Resp BP Pulse Ox 98.0 F 53 L 16 111/56 L 100 07/02/20 16:00 07/02/20 16:00 07/02/20 16:00 07/02/20 16:00 07/02/20 16:00 Intake & Output 07/01/20 07/02/20 07/03/20 06:59 06:59 06:59 Intake Total 1432 1382 780 Output Total 5121 3615 1050 Balance -1393 -1093 -270 Weight 66.9 kg 66.9 kg General appearance: PRESENT: no acute distress Eye exam: PRESENT: PERRLA Respiratory exam: PRESENT: clear to auscultation raimundo Cardiovascular exam: PRESENT: +S1, +S2 GI/Abdominal exam: PRESENT: soft Neurological exam: PRESENT: alert Results Laboratory Results: 06/30/20 05:40 06/30/20 05:40 06/28/20 06/28/20 23:30 23:30 Troponin I 0.073 NT-Pro-B Natriuret Pep 42912 H Impressions: Chest X-Ray 06/28/20 23:22 IMPRESSION: Pulmonary edema with small pleural effusions. Cervical Spine CT 06/29/20 00:19 IMPRESSION: No acute fracture or subluxation. Head CT 06/29/20 00:19 IMPRESSION: No acute intracranial findings. Facial Bones CT 06/29/20 00:28 IMPRESSION: No post-traumatic findings. Assessment & Plan - Diagnosis (1) Acute diastolic heart failure Is this a current diagnosis for this admission?: Yes Plan: Continue present treatment (2) Dysarthria following cerebral infarction Is this a current diagnosis for this admission?: Yes (3) Hypertensive emergency Is this a current diagnosis for this admission?: Yes Plan: Continue present treatment - Time Time Spent with patient: 25-34 minutes Level of Care: IMCU Medications reviewed and adjusted accordingly: Yes Anticipated discharge: Home - Inpatient Certification Based on my medical assessment, after consideration of the patient's comorbidities, presenting symptoms, or acuity I expect that the services needed warrant INPATIENT care.: Yes I certify that my determination is in accordance with my understanding of Medicare's requirements for reasonable and necessary INPATIENT services [42 CFR 412.3e].: Yes
[2020-07-02] MEDS: TRAMADOL HCL 50 MG TABLET PO PRN (22:30)
[2020-07-03] MEDS: INSULIN LISPRO 100 UNIT/ML 3 ML VIAL SUBCUT SCH ×4 (08:36→23:32)
[2020-07-03] MEDS: CYCLOSPORINE 0.05% OPH EMULSIO 0.4 ML DROPERETTE OU SCH ×2 (09:05→18:56)
[2020-07-03] MEDS: FUROSEMIDE 40 MG TABLET PO SCH (09:05)
[2020-07-03] MEDS: METFORMIN HCL 500 MG TABLET PO SCH ×2 (09:05→17:03)
[2020-07-03] MEDS: VALSARTAN 160 MG TABLET PO SCH ×2 (09:05→23:39)
[2020-07-03] MEDS: METOPROLOL SUCCINATE 50 MG TAB.SR.24H PO SCH (09:05)
[2020-07-03] MEDS: PANTOPRAZOLE SODIUM 40 MG TABLET.DR PO SCH (09:05)
[2020-07-03] MEDS: AMLODIPINE BESYLATE 5 MG TABLET PO SCH ×2 (09:05→23:45)
[2020-07-03] MEDS: NITROGLYCERIN 15 MG (0.6 MG/1 HR) PATCH.TD24 TD SCH (09:05)
[2020-07-03] MEDS: AMMONIUM LACTATE 12% LOTION 225GM BOTTLE TP SCH ×2 (09:06→17:03)
[2020-07-03] MEDS: ATORVASTATIN CALCIUM 40 MG TABLET PO SCH (17:03)
[2020-07-03] MEDS: RIVAROXABAN 10 MG TABLET PO SCH (17:03)
--- NOTE | 2020-07-03 19:42 | Progress Note ---
Provider Note Provider Note: Cardiology PROGRESS NOTE by Dr. Sun Cam on 07/03/2020. SUBJECTIVE: The patient denies any chest pain or discomfort. There is no shortness of breath. There is no PND orthopnea. She has only trace leg edema. There is no arrhythmias seen on the monitor especially there is no recurrence of atrial fibrillation. The patient's gait is very unsteady and it has been determined that the patient would be best served to be transferred to a nursing home facility for ambulatory purposes. This to be done with rehab. PHYSICAL EXAMINATION: Patient slightly overweight in no acute distress. Selected Entries 07/03/20 07/03/20 07/03/20 14:00 15:56 21:20 Pulse Rate 52 L Blood Pressure 125/47 L [Right Upper Arm] Blood Pressure 73 Mean [Right Upper Arm] Blood Pressure Supine Position [Right Upper Arm] Respirations 18/min. Oxygen Delivery Nasal Cannula Method ( includes room air) Oxygen Flow 1 Rate HEAD: Is atraumatic normocephalic. EYES:. Pupils are equal round regular reactive to light and accommodation. Extraocular movements are normal. There is no conjunctival pallor. There is no scleral icterus. EARS: Tympanic membranes are intact. External auditory canals are clear. NOSE: There is no deviated nasal septum. There is no inflammation of the nasal mucous membrane. MOUTH: Mucous membranes of the mouth are moist. Tongue is moist. There is no bleeding from the gums. There is no ulcers. THROAT: There is no redness of the oropharynx. There is no exudates. SKIN: There is no skin rashes. There is no petechia or ecchymosis. There is no skin lesions. NECK: Is supple. There is no JVD. Carotids are equal there is no bruit. There is no lymphadenopathy. There is no goiter. LUNGS: Trachea central. There is no accessory muscles of respiration use. Lungs show very few bibasilar fine rales. There is no rhonchi or wheezing. HEART: S1-S2 is heard. S1 is of normal intensity. There is no S3 gallop. There is no S4 gallop. There is systolic murmur in the left sternal border and the apex there is no rub. ABDOMEN: Soft. Nontender. There is no hepatosplenomegaly. Bowel sounds are well heard. EXTREMITIES: Femorals are diminished. There is mild femoral bruits. Leg pulses diminished. There is trace to pedal edema. There is no cyanosis or clubbing. There is no DVT or cellulitis. There is no calf tenderness. 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 There is mild right-sided weakness and dysarthria. The patient is dysarthric which is residual of her preprior CVA. PSYCHIATRIC: Most likely patient judgment insight are intact her affect is normal. Labs- All tests 24 hr 07/03/20 07/03/20 07/03/20 08:09 11:26 16:16 POC Glucose 78 96 87 COVID-19 Source 07/03/20 07/03/20 17:00 21:07 POC Glucose 93 COVID-19 Source See comment Chest X-Ray 06/28/20 23:22 IMPRESSION: Pulmonary edema with small pleural effusions. Cervical Spine CT 06/29/20 00:19 IMPRESSION: No acute fracture or subluxation. Head CT 06/29/20 00:19 IMPRESSION: No acute intracranial findings. Facial Bones CT 06/29/20 00:28 IMPRESSION: No post-traumatic findings. IMPRESSION/RECOMMENDATION: 1. Acute left ventricle diastolic heart failure: This is secondary to patient's uncontrolled hypertension and diastolic dysfunction causing heart failure. Would recommend increasing the patient's ARB, continue patient on Lasix. Will get an outpatient echocardiogram once the patient's heart failure is settled. Note with the treatment the patient is already feeling much better. 2. Uncontrolled hypertension on admission to the emergency room. Blood pressure still not very well controlled. Would recommend increasing the patient's antihypertensive medication. After discussion with Dr. Scott will change the patient's Diovan to 160 mg p.o. every 12 hours instead of 320 mg once a day. We will also see if we can add another antihypertensive. 3. Exertional angina: Add nitrates. This is most likely diagnosis, although the patient is not able to give a good history. 4. Coronary artery disease: Prior history of pulseless electrical activity causing cardiac arrest resulting in the patient having 2 stents placed in the right coronary artery. No recurrence of sudden . Patient appears to have anginal symptoms, compounded by both hypertension and anemia. Hence we will add nitrates. 5. Paroxysmal atrial fibrillation: No recurrence. Patient on Xarelto continue Xarelto. 6. Diabetes mellitus: [id number]: Continue antidiabetic's and Accu- Cheks as per protocol. 7. Anemia:? Cause watch patient's hemoglobin. 8. Peripheral arterial disease: History of left femoral arterial angioplasty in 2016. 9. History of CVA with residual mild right-sided weakness and dysarthria. 10. Dysarthria. 11. Hyperlipidemia: Continue statins check lipid levels in a.m. 12. Hypokalemia: This is resolved Medications reviewed. Medical regimen management plan discussed with attending the attending physician. Due to need to adjust medications and add medications, medical decision making is of moderate complexity. Complexity. 40 minutes spent on the patient with more than 50% of time spent in direct patient care. Will follow
--- NOTE | 2020-07-03 22:27 | PDOC PROGRESS REPORT ---
Subjective Progress Note for:: 07/03/20 Subjective:: 07/02/2020 Patient seen by the bedside, I was advised by Dr. Omalley, cardiology, the patient was ready for discharge, I am presently covering Dr. Scott's patient. Tiera landa was examined, she is very dysarthric, she was hardly able to self transfer from bed to chair, we have to assist the patient myself and the RN nurse. I was later informed that she lives by herself, initially I thought she lives with her children. There is no way this lady can take care of her self, she is hardly able to ambulate, gait is very unsteady she has a history of stroke, at the [facility] she will need to be transferred to a [place] [facility] home for rehabilitation for muscle strengthening etc. and family needs to discuss disposition. 07/03/2020 Patient seen by the bedside no new complaints awaiting placement Reason For Visit: ACUTE CONGESTIVE HEART FAILURE,HTN,CAD S/P STENT Physical Exam Vital Signs: Temp Pulse Resp BP Pulse Ox 98.1 F 52 L 20 125/47 L 95 07/03/20 07:47 07/03/20 14:00 07/02/20 23:47 07/03/20 15:56 07/02/20 23:47 Intake & Output 07/02/20 07/03/20 07/04/20 06:59 06:59 06:59 Intake Total 1382 780 500 Output Total 2475 1250 Balance -1093 -470 500 Weight 66.9 kg 67.9 kg General appearance: PRESENT: no acute distress Eye exam: PRESENT: PERRLA Respiratory exam: PRESENT: clear to auscultation raimundo Cardiovascular exam: PRESENT: +S1, +S2 GI/Abdominal exam: PRESENT: soft Neurological exam: PRESENT: alert Results Laboratory Results: 06/30/20 05:40 06/30/20 05:40 06/28/20 06/28/20 23:30 23:30 Troponin I 0.073 NT-Pro-B Natriuret Pep 08715 H Impressions: Chest X-Ray 06/28/20 23:22 IMPRESSION: Pulmonary edema with small pleural effusions. Cervical Spine CT 06/29/20 00:19 IMPRESSION: No acute fracture or subluxation. Head CT 06/29/20 00:19 IMPRESSION: No acute intracranial findings. Facial Bones CT 06/29/20 00:28 IMPRESSION: No post-traumatic findings. Assessment & Plan - Diagnosis (1) Acute diastolic heart failure Is this a current diagnosis for this admission?: Yes Plan: Continue present treatment (2) Dysarthria following cerebral infarction Is this a current diagnosis for this admission?: Yes (3) Hypertensive emergency Is this a current diagnosis for this admission?: Yes Plan: Continue present treatment - Time Time Spent with patient: 15-24 minutes Level of Care: IMCU Medications reviewed and adjusted accordingly: Yes Anticipated discharge: Home
[2020-07-04] MEDS: NITROGLYCERIN 15 MG (0.6 MG/1 HR) PATCH.TD24 TD SCH (08:22)
[2020-07-04] MEDS: METFORMIN HCL 500 MG TABLET PO SCH ×2 (08:22→17:18)
[2020-07-04] MEDS: PANTOPRAZOLE SODIUM 40 MG TABLET.DR PO SCH (08:22)
[2020-07-04] MEDS: INSULIN LISPRO 100 UNIT/ML 3 ML VIAL SUBCUT SCH ×4 (08:38→22:07)
[2020-07-04] MEDS: AMMONIUM LACTATE 12% LOTION 225GM BOTTLE TP SCH ×2 (09:29→17:19)
[2020-07-04] MEDS: VALSARTAN 160 MG TABLET PO SCH ×2 (09:29→22:16)
[2020-07-04] MEDS: METOPROLOL SUCCINATE 50 MG TAB.SR.24H PO SCH (09:29)
[2020-07-04] MEDS: CYCLOSPORINE 0.05% OPH EMULSIO 0.4 ML DROPERETTE OU SCH ×2 (09:29→17:18)
[2020-07-04] MEDS: FUROSEMIDE 40 MG TABLET PO SCH (09:29)
[2020-07-04] MEDS: AMLODIPINE BESYLATE 5 MG TABLET PO SCH ×2 (09:29→22:17)
--- NOTE | 2020-07-04 15:46 | Progress Note ---
Provider Note Provider Note: CARDIOLOGY PROGRESS NOTE by Dr. Sun Cam on 07/04/2020. SUBJECTIVE: The patient denies any chest pain or discomfort. There is no orthopnea. There is no PND or leg edema. There is no arrhythmias seen on the monitor. The patient's Covid 19 test is still awaited. The patient cardiac status remains stable. PHYSICAL EXAMINATION: The patient is mildly overweight. In no acute distress. Selected Entries 07/04/20 15:00 Temperature 98.1 F Temperature Oral Source Pulse Rate 60 Respiratory 19 Rate Blood Pressure 123/47 L [Right Upper Arm] Blood Pressure 72 Mean [Right Upper Arm] Blood Pressure Supine Position [Right Upper Arm] Oxygen Delivery Nasal Cannula Method ( includes room air) Oxygen Flow 2.0 Rate HEAD: Is atraumatic normocephalic. EYES:. Pupils are equal round regular reactive to light and accommodation. Extraocular movements are normal. There is no conjunctival pallor. There is no scleral icterus. EARS: Tympanic membranes are intact. External auditory canals are clear. NOSE: There is no deviated nasal septum. There is no inflammation of the nasal mucous membrane. MOUTH: Mucous membranes of the mouth are moist. Tongue is moist. There is no bleeding from the gums. There is no ulcers. THROAT: There is no redness of the oropharynx. There is no exudates. SKIN: There is no skin rashes. There is no petechia or ecchymosis. There is no skin lesions. NECK: Is supple. There is no JVD. Carotids are equal there is no bruit. There is no lymphadenopathy. There is no goiter. LUNGS: Trachea central. There is no accessory muscles of respiration use. Lungs show very few bibasilar fine rales. There is no rhonchi or wheezing. HEART: S1-S2 is heard. S1 is of normal intensity. There is no S3 gallop. There is no S4 gallop. There is systolic murmur in the left sternal border and the apex there is no rub. ABDOMEN: Soft. Nontender. There is no hepatosplenomegaly. Bowel sounds are well heard. EXTREMITIES: Femorals are diminished. There is mild femoral bruits. Leg pulses diminished. There is tr sumaya to pedal edema. There is no cyanosis or clubbing. There is no DVT or cellulitis. There is no calf tenderness. CONTACT CENTER ASSOCIATE: The patient is conscious awake alert oriented x3. There is mild right-sided weakness and dysarthria. The patient is dysarthric which is residual of her preprior CVA. PSYCHIATRIC: Most likely patient judgment insight are intact her affect is normal. Labs- All tests 24 hr 07/03/20 07/04/20 07/04/20 21:07 07:42 11:35 POC Glucose 93 79 100 07/04/20 17:02 POC Glucose 115 H Chest X-Ray 06/28/20 23:22 IMPRESSION: Pulmonary edema with small pleural effusions. Cervical Spine CT 06/29/20 00:19 IMPRESSION: No acute fracture or subluxation. Head CT 06/29/20 00:19 IMPRESSION: No acute intracranial findings. Facial Bones CT 06/29/20 00:28 IMPRESSION: No post-traumatic findings IMPRESSION/RECOMMENDATION: 1. Acute left ventricle diastolic heart failure: This is secondary to patient's uncontrolled hypertension and diastolic dysfunction causing heart failure. Would recommend increasing the patient's ARB, continue patient on Lasix. Will get an outpatient echocardiogram once the patient's heart failure is settled. Note with the treatment the patient is already feeling much better. 2. Uncontrolled hypertension on admission to the emergency room. Blood pressure still not very well controlled. Would recommend increasing the patient's antihypertensive medication. After discussion with Dr. Scott will change the patient's Diovan to 160 mg p.o. every 12 hours instead of 320 mg once a day. We will also see if we can add another antihypertensive. 3. Exertional angina: Add nitrates. This is most likely diagnosis, although the patient is not able to give a good history. 4. Coronary artery disease: Prior history of pulseless electrical activity causing cardiac arrest resulting in the patient having 2 stents placed in the right coronary artery. No recurrence of sudden . Patient appears to have anginal symptoms, compounded by both hypertension and anemia. Hence we will add nitrates. 5. Paroxysmal atrial fibrillation: No recurrence. Patient on Xarelto continue Xarelto. 6. Diabetes mellitus: [id number]: Continue antidiabetic's and Accu-C heks as per protocol. 7. Anemia:? Cause watch patient's hemoglobin. 8. Peripheral arterial disease: History of left femoral arterial angioplasty in 2016. 9. History of CVA with residual mild right-sided weakness and dysarthria. 10. Dysarthria. 11. Hyperlipidemia: Continue statins check lipid levels in a.m. 12. Hypokalemia: This is resolved Medications reviewed. Medical regimen management plan discussed with attending the attending physician. Due to need to adjust medications and add medications, medical decision making is of moderate complexity. Complexity. 40 minutes spent on the patient with more than 50% of time spent in direct patient care. Cardiac status is stable. We will sign off. We will follow the patient in the office after she is discharged from the senior care facility.
[2020-07-04] MEDS: RIVAROXABAN 10 MG TABLET PO SCH (17:18)
[2020-07-04] MEDS: ATORVASTATIN CALCIUM 40 MG TABLET PO SCH (17:18)
--- NOTE | 2020-07-04 21:14 | PDOC PROGRESS REPORT ---
Subjective Progress Note for:: 07/04/20 Subjective:: 07/02/2020 Patient seen by the bedside, I was advised by Dr. Omalley, cardiology, the patient was ready for discharge, I am presently covering Dr. Scott's patient. Tiera landa was examined, she is very dysarthric, she was hardly able to self transfer from bed to chair, we have to assist the patient myself and the RN nurse. I was later informed that she lives by herself, initially I thought she lives with her children. There is no way this lady can take care of her self, she is hardly able to ambulate, gait is very unsteady she has a history of stroke, at the [facility] she will need to be transferred to a senior living home for rehabilitation for muscle strengthening etc. and family needs to discuss disposition. 07/03/2020 Patient seen by the bedside no new complaints awaiting placement 07/04/2020 patient seen by the bedside, there is no new complaints Reason For Visit: ACUTE CONGESTIVE HEART FAILURE,HTN,CAD S/P STENT Physical Exam Vital Signs: Temp Pulse Resp BP Pulse Ox 98.1 F 60 19 123/47 L 100 07/04/20 15:00 07/04/20 15:00 07/04/20 15:00 07/04/20 15:00 07/04/20 07:41 Intake & Output 07/03/20 07/04/20 07/05/20 06:59 06:59 06:59 Intake Total 022 126 0395 Output Total 1250 Balance -527 958 0389 Weight 67.9 kg 65.8 kg General appearance: PRESENT: no acute distress Eye exam: PRESENT: PERRLA Respiratory exam: PRESENT: clear to auscultation raimundo Cardiovascular exam: PRESENT: +S1, +S2 Neurological exam: PRESENT: alert Results Laboratory Results: 06/30/20 05:40 06/30/20 05:40 06/28/20 06/28/20 23:30 23:30 Troponin I 0.073 NT-Pro-B Natriuret Pep 13022 H Impressions: Chest X-Ray 06/28/20 23:22 IMPRESSION: Pulmonary edema with small pleural effusions. Cervical Spine CT 06/29/20 00:19 IMPRESSION: No acute fracture or subluxation. Head CT 06/29/20 00:19 IMPRESSION: No acute intracranial findings. Facial Bones CT 06/29/20 00:28 IMPRESSION: No post-traumatic findings. Assessment & Plan - Diagnosis (1) Acute diastolic heart failure Is this a current diagnosis for this admission?: Yes (2) Dysarthria following cerebral infarction Is this a current diagnosis for this admission?: Yes (3) Hypertensive emergency Is this a current diagnosis for this admission?: Yes - Time Time Spent with patient: 15-24 minutes Level of Care: IMCU Anticipated discharge: SNF Anticipated DC Timeframe: when bed available
--- NOTE | 2020-07-04 21:15 | PDOC PROGRESS REPORT ---
Subjective Progress Note for:: 07/04/20 Reason For Visit: ACUTE CONGESTIVE HEART FAILURE,HTN,CAD S/P STENT Physical Exam Vital Signs: Temp Pulse Resp BP Pulse Ox 98.1 F 60 19 123/47 L 100 07/04/20 15:00 07/04/20 15:00 07/04/20 15:00 07/04/20 15:00 07/04/20 07:41 Intake & Output 07/03/20 07/04/20 07/05/20 06:59 06:59 06:59 Intake Total 820 955 8884 Output Total 1250 Balance -357 008 3933 Weight 67.9 kg 65.8 kg Results Laboratory Results: 06/30/20 05:40 06/30/20 05:40 06/28/20 06/28/20 23:30 23:30 Troponin I 0.073 NT-Pro-B Natriuret Pep 00184 H Impressions: Chest X-Ray 06/28/20 23:22 IMPRESSION: Pulmonary edema with small pleural effusions. Cervical Spine CT 06/29/20 00:19 IMPRESSION: No acute fracture or subluxation. Head CT 06/29/20 00:19 IMPRESSION: No acute intracranial findings. Facial Bones CT 06/29/20 00:28 IMPRESSION: No post-traumatic findings. Assessment & Plan - Diagnosis (1) Acute diastolic heart failure Is this a current diagnosis for this admission?: Yes (2) Dysarthria following cerebral infarction Is this a current diagnosis for this admission?: Yes (3) Hypertensive emergency Is this a current diagnosis for this admission?: Yes
[2020-07-05] MEDS: INSULIN LISPRO 100 UNIT/ML 3 ML VIAL SUBCUT SCH ×4 (08:22→22:46)
[2020-07-05] MEDS: NITROGLYCERIN 15 MG (0.6 MG/1 HR) PATCH.TD24 TD SCH (08:30)
[2020-07-05] MEDS: METFORMIN HCL 500 MG TABLET PO SCH ×2 (08:30→16:45)
[2020-07-05] MEDS: PANTOPRAZOLE SODIUM 40 MG TABLET.DR PO SCH (08:30)
[2020-07-05] MEDS: AMLODIPINE BESYLATE 5 MG TABLET PO SCH ×2 (09:59→22:46)
[2020-07-05] MEDS: CYCLOSPORINE 0.05% OPH EMULSIO 0.4 ML DROPERETTE OU SCH ×2 (09:59→17:06)
[2020-07-05] MEDS: METOPROLOL SUCCINATE 50 MG TAB.SR.24H PO SCH (09:59)
[2020-07-05] MEDS: FUROSEMIDE 40 MG TABLET PO SCH (10:00)
[2020-07-05] MEDS: VALSARTAN 160 MG TABLET PO SCH ×2 (10:00→22:46)
[2020-07-05] MEDS: AMMONIUM LACTATE 12% LOTION 225GM BOTTLE TP SCH ×2 (10:01→17:06)
--- NOTE | 2020-07-05 15:39 | PDOC PROGRESS REPORT ---
Subjective Progress Note for:: 07/05/20 Subjective:: 07/02/2020 Patient seen by the bedside, I was advised by Dr. Omalley, cardiology, the patient was ready for discharge, I am presently covering Dr. Scott's patient. Tiera landa was examined, she is very dysarthric, she was hardly able to self transfer from bed to chair, we have to assist the patient myself and the RN nurse. I was later informed that she lives by herself, initially I thought she lives with her children. There is no way this lady can take care of her self, she is hardly able to ambulate, gait is very unsteady she has a history of stroke, at the [facility] she will need to be transferred to a retirement home for rehabilitation for muscle strengthening etc. and family needs to discuss disposition. 07/03/2020 Patient seen by the bedside no new complaints awaiting placement 07/04/2020 patient seen by the bedside, there is no new complaints 07/05/2020 Patient seen by the bedside, awaiting group home placement, continue present regimen Reason For Visit: ACUTE CONGESTIVE HEART FAILURE,HTN,CAD S/P STENT Physical Exam Vital Signs: Temp Pulse Resp BP Pulse Ox 97.6 F 53 L 16 125/46 L 100 07/05/20 12:37 07/05/20 14:00 07/05/20 12:37 07/05/20 12:37 07/05/20 12:37 Intake & Output 07/04/20 07/05/20 07/06/20 06:59 06:59 05:59 Intake Total 500 1480 598 Balance 500 1480 598 Weight 65.8 kg 64.2 kg General appearance: PRESENT: no acute distress Eye exam: PRESENT: PERRLA Respiratory exam: PRESENT: clear to auscultation raimundo Cardiovascular exam: PRESENT: +S1, +S2 GI/Abdominal exam: PRESENT: soft Neurological exam: PRESENT: alert Results Laboratory Results: 06/30/20 05:40 06/30/20 05:40 06/28/20 06/28/20 23:30 23:30 Troponin I 0.073 NT-Pro-B Natriuret Pep 03184 H Impressions: Chest X-Ray 06/28/20 23:22 IMPRESSION: Pulmonary edema with small pleural effusions. Cervical Spine CT 06/29/20 00:19 IMPRESSION: No acute fracture or subluxation. Head CT 06/29/20 00:19 IMPRESSION: No acute intracranial findings. Facial Bones CT 06/29/20 00:28 IMPRESSION: No post-traumatic findings. Assessment & Plan - Diagnosis (1) Acute diastolic heart failure Is this a current diagnosis for this admission?: Yes (2) Dysarthria following cerebral infarction Is this a current diagnosis for this admission?: Yes (3) Hypertensive emergency Is this a current diagnosis for this admission?: Yes - Time Time Spent with patient: 15-24 minutes Level of Care: IMCU Anticipated discharge: SNF Anticipated DC Timeframe: when bed available
[2020-07-05] MEDS: RIVAROXABAN 10 MG TABLET PO SCH (17:05)
[2020-07-05] MEDS: ATORVASTATIN CALCIUM 40 MG TABLET PO SCH (17:05)
[2020-07-06] MEDS: INSULIN LISPRO 100 UNIT/ML 3 ML VIAL SUBCUT SCH ×4 (09:34→22:03)
[2020-07-06] MEDS: NITROGLYCERIN 15 MG (0.6 MG/1 HR) PATCH.TD24 TD SCH (09:40)
[2020-07-06] MEDS: CYCLOSPORINE 0.05% OPH EMULSIO 0.4 ML DROPERETTE OU SCH ×2 (09:41→17:28)
[2020-07-06] MEDS: PANTOPRAZOLE SODIUM 40 MG TABLET.DR PO SCH (09:41)
[2020-07-06] MEDS: METOPROLOL SUCCINATE 50 MG TAB.SR.24H PO SCH (09:41)
[2020-07-06] MEDS: METFORMIN HCL 500 MG TABLET PO SCH ×2 (09:41→17:29)
[2020-07-06] MEDS: AMMONIUM LACTATE 12% LOTION 225GM BOTTLE TP SCH ×2 (09:42→17:29)
[2020-07-06] MEDS: AMLODIPINE BESYLATE 5 MG TABLET PO SCH ×2 (09:42→22:03)
[2020-07-06] MEDS: VALSARTAN 160 MG TABLET PO SCH ×2 (09:42→22:03)
[2020-07-06] MEDS: FUROSEMIDE 40 MG TABLET PO SCH (09:42)
--- NOTE | 2020-07-06 13:48 | PDOC PROGRESS REPORT ---
Subjective Progress Note for:: 07/06/20 Subjective:: 07/02/2020 Patient seen by the bedside, I was advised by Dr. Omalley, cardiology, the patient was ready for discharge, I am presently covering Dr. Scott's patient. Tiera landa was examined, she is very dysarthric, she was hardly able to self transfer from bed to chair, we have to assist the patient myself and the RN nurse. I was later informed that she lives by herself, initially I thought she lives with her children. There is no way this lady can take care of her self, she is hardly able to ambulate, gait is very unsteady she has a history of stroke, at the [facility] she will need to be transferred to a nursing home home for rehabilitation for muscle strengthening etc. and family needs to discuss disposition. 07/03/2020 Patient seen by the bedside no new complaints awaiting placement 07/04/2020 patient seen by the bedside, there is no new complaints 07/05/2020 Patient seen by the bedside, awaiting residential placement, continue present regimen 07/06/2020 Seen by the bedside, no new complaints, awaiting residential placement Reason For Visit: ACUTE CONGESTIVE HEART FAILURE,HTN,CAD S/P STENT Physical Exam Vital Signs: Temp Pulse Resp BP Pulse Ox 98.1 F 56 L 16 128/57 H 100 07/06/20 11:28 07/06/20 11:28 07/06/20 11:28 07/06/20 11:28 07/06/20 11:28 Intake & Output 07/05/20 07/06/20 07/07/20 07:59 06:59 06:59 Intake Total Balance Weight General appearance: PRESENT: no acute distress Eye exam: PRESENT: PERRLA Respiratory exam: PRESENT: clear to auscultation raimundo Cardiovascular exam: PRESENT: +S1, +S2 Neurological exam: PRESENT: alert Results Laboratory Results: 06/30/20 05:40 06/30/20 05:40 06/28/20 06/28/20 23:30 23:30 Troponin I 0.073 NT-Pro-B Natriuret Pep [id number] H Impressions: Chest X-Ray 06/28/20 23:22 IMPRESSION: Pulmonary edema with small pleural effusions. Cervical Spine CT 06/29/20 00:19 IMPRESSION: No acute fracture or subluxation. Head CT 06/29/20 00:19 IMPRESSION: No acute intracranial findings. Facial Bones CT 06/29/20 00:28 IMPRESSION: No post-traumatic findings. Assessment & Plan - Diagnosis (1) Acute diastolic heart failure Is this a current diagnosis for this admission?: Yes (2) Dysarthria following cerebral infarction Is this a current diagnosis for this admission?: Yes (3) Hypertensive emergency Is this a current diagnosis for this admission?: Yes - Time Time Spent with patient: 25-34 minutes Level of Care: IMCU Medications reviewed and adjusted accordingly: Yes Anticipated discharge: SNF Anticipated DC Timeframe: when bed available
[2020-07-06] MEDS: RIVAROXABAN 10 MG TABLET PO SCH (17:28)
[2020-07-06] MEDS: ATORVASTATIN CALCIUM 40 MG TABLET PO SCH (17:29)
[2020-07-07] MEDS: METOPROLOL SUCCINATE 50 MG TAB.SR.24H PO SCH (09:43)
[2020-07-07] MEDS: FUROSEMIDE 40 MG TABLET PO SCH (09:43)
[2020-07-07] MEDS: AMLODIPINE BESYLATE 5 MG TABLET PO SCH ×2 (09:43→21:21)
[2020-07-07] MEDS: VALSARTAN 160 MG TABLET PO SCH ×2 (09:43→21:22)
[2020-07-07] MEDS: METFORMIN HCL 500 MG TABLET PO SCH ×2 (09:44→17:26)
[2020-07-07] MEDS: NITROGLYCERIN 15 MG (0.6 MG/1 HR) PATCH.TD24 TD SCH (09:44)
[2020-07-07] MEDS: PANTOPRAZOLE SODIUM 40 MG TABLET.DR PO SCH (09:44)
[2020-07-07] MEDS: CYCLOSPORINE 0.05% OPH EMULSIO 0.4 ML DROPERETTE OU SCH ×2 (09:45→17:26)
[2020-07-07] MEDS: AMMONIUM LACTATE 12% LOTION 225GM BOTTLE TP SCH ×2 (11:00→17:38)
[2020-07-07] MEDS: INSULIN LISPRO 100 UNIT/ML 3 ML VIAL SUBCUT SCH ×4 (16:19→22:00)
[2020-07-07] MEDS: RIVAROXABAN 10 MG TABLET PO SCH (17:26)
[2020-07-07] MEDS: ATORVASTATIN CALCIUM 40 MG TABLET PO SCH (17:26)
--- NOTE | 2020-07-08 04:32 | RADIOLOGY REPORT (SQ) ---
CT head without contrast on 07/08/2020 at 4:01 AM CLINICAL INDICATION: Altered mental status TECHNIQUE: Multiple axial images are obtained throughout the head without the administration of contrast. This exam was performed according to our departmental dose-optimization program, which includes automated exposure control, adjustment of the mA and/or kV according to patient size and/or use of iterative reconstruction technique. Total DLP is 973.56 mGy*cm. COMPARISON: 06/29/2020 FINDINGS: There is again noted a old left MCA territory infarct in the left frontal lobe. There is mild generalized cerebral atrophy. There is mild low-density in the periventricular white matter consistent with mild chronic small vessel ischemic changes. There is no CT evidence of acute infarct. There is no hemorrhage. There are no abnormal extra-axial fluid collections. There is no mass, mass effect or midline shift. No bony abnormality is noted. IMPRESSION: Stable examination with no acute intracranial abnormality.
[2020-07-08] MEDS: INSULIN LISPRO 100 UNIT/ML 3 ML VIAL SUBCUT SCH ×4 (08:07→22:11)
[2020-07-08] MEDS: METOPROLOL SUCCINATE 50 MG TAB.SR.24H PO SCH (09:11)
[2020-07-08] MEDS: AMLODIPINE BESYLATE 5 MG TABLET PO SCH ×2 (09:11→22:15)
[2020-07-08] MEDS: CYCLOSPORINE 0.05% OPH EMULSIO 0.4 ML DROPERETTE OU SCH (09:11)
[2020-07-08] MEDS: METFORMIN HCL 500 MG TABLET PO SCH ×2 (09:11→17:11)
[2020-07-08] MEDS: VALSARTAN 160 MG TABLET PO SCH ×2 (09:11→22:15)
[2020-07-08] MEDS: FUROSEMIDE 40 MG TABLET PO SCH (09:11)
[2020-07-08] MEDS: PANTOPRAZOLE SODIUM 40 MG TABLET.DR PO SCH (09:11)
--- NOTE | 2020-07-08 09:11 | PDOC PROGRESS REPORT ---
Subjective Progress Note for:: 07/07/20 Subjective:: No chest painor difficulty with breathing. No fever or chills. No nausea, vomiting, abdominal pastrana or diarrhea. Reason For Visit: ACUTE CONGESTIVE HEART FAILURE,HTN,CAD S/P STENT Physical Exam Vital Signs: Temp Pulse Resp BP Pulse Ox 98.1 F 62 17 129/56 H 98 07/07/20 10:00 07/07/20 14:00 07/06/20 23:35 07/06/20 23:35 07/06/20 23:35 Intake & Output 07/06/20 07/07/20 07/08/20 06:59 06:59 06:59 Intake Total 902 930 Balance 902 930 Weight 63.5 kg General appearance: PRESENT: no acute distress Head exam: PRESENT: atraumatic, normocephalic Eye exam: PRESENT: conjunctiva pink. ABSENT: scleral icterus Mouth exam: PRESENT: moist Respiratory exam: PRESENT: clear to auscultation raimundo Cardiovascular exam: PRESENT: RRR, +S1, +S2. ABSENT: diastolic murmur, rubs, systolic murmur Vascular exam: ABSENT: pallor GI/Abdominal exam: PRESENT: normal bowel sounds, soft. ABSENT: tenderness Extremities exam: ABSENT: pedal edema Neurological exam: PRESENT: alert, awake Psychiatric exam: ABSENT: agitated, anxious Skin exam: PRESENT: dry, warm Results Laboratory Results: 06/30/20 05:40 06/30/20 05:40 06/28/20 06/28/20 23:30 23:30 Troponin I 0.073 NT-Pro-B Natriuret Pep [id number] H Impressions: Chest X-Ray 06/28/20 23:22 IMPRESSION: Pulmonary edema with small pleural effusions. Cervical Spine CT 06/29/20 00:19 IMPRESSION: No acute fracture or subluxation. Head CT 06/29/20 00:19 IMPRESSION: No acute intracranial findings. Facial Bones CT 06/29/20 00:28 IMPRESSION: No post-traumatic findings. Assessment & Plan - Diagnosis (1) Acute CHF (congestive heart failure) Qualifiers: Heart failure type: diastolic Qualified Code(s): I50.31 - Acute diastolic (congestive) heart failure Is this a current diagnosis for this admission?: Yes (2) HTN (hypertension) Qualifiers: Hypertension type: essential hypertension Qualified Code(s): I10 - Essenti al (primary) hypertension Is this a current diagnosis for this admission?: Yes (3) CAD (coronary artery disease) Qualifiers: Coronary Disease-Associated Artery/Lesion type: [place] artery Associated angina: without angina Is this a current diagnosis for this admission?: Yes (4) HLD (hyperlipidemia) Qualifiers: Hyperlipidemia type: unspecified Qualified Code(s): E78.5 - Hyperlipidemia, unspecified Is this a current diagnosis for this admission?: Yes (5) Type 2 diabetes mellitus with obesity Is this a current diagnosis for this admission?: Yes (6) COPD (chronic obstructive pulmonary disease) Qualifiers: Emphysema type: unspecified Is this a current diagnosis for this admission?: Yes (7) Anemia Qualifiers: Anemia type: iron deficiency Iron deficiency anemia type: unspecified iron deficiency Qualified Code(s): D50.9 - Iron deficiency anemia, unspecified Is this a current diagnosis for this admission?: Yes (8) GERD (gastroesophageal reflux disease) Qualifiers: Esophagitis presence: esophagitis presence not specified Qualified Code(s): K21.9 - Gastro-esophageal reflux disease without esophagitis Is this a current diagnosis for this admission?: Yes (9) Dysarthria as late effect of stroke Is this a current diagnosis for this admission?: Yes - Time Time Spent with patient: 25-34 minutes Level of Care: IMCU Anticipated discharge: SNF Anticipated DC Timeframe: when bed available - Inpatient Certification Based on my medical assessment, after consideration of the patient's comorbidities, presenting symptoms, or acuity I expect that the services needed warrant INPATIENT care.: Yes I certify that my determination is in accordance with my understanding of Medicare's requirements for reasonable and necessary INPATIENT services [42 CFR 412.3e].: Yes Medical Necessity: Significant Comorbidiites Make Outpatient Treatment Too Risky, Need Close Monitoring Due to Risk of Patient Decompensation, Need For Continuous Telemetry Monitoring, Risk of Complication if Not Cared For in Hospital, Risk of Diagnosis Which Will Require Inpatient Eval/Care/Monitoring Post Hospital Care: D/C or Transfer Summary - Plan Summary Plan Summary: Continue current medication management. Follow up on SNF placement for short term rehabilitation.
[2020-07-08] MEDS: NITROGLYCERIN 15 MG (0.6 MG/1 HR) PATCH.TD24 TD SCH (09:12)
[2020-07-08] MEDS: AMMONIUM LACTATE 12% LOTION 225GM BOTTLE TP SCH ×2 (09:20→17:11)
--- NOTE | 2020-07-08 13:27 | PDOC TRANSFER SUMMARY ---
Impression - Admit/DC Date/PCP Admission Date/Primary Care Provider: 06/29/20 04:06 DANIELA ANDERSEN Discharge Date: 07/08/20 - Discharge Diagnosis (1) Acute CHF (congestive heart failure) Is this a current diagnosis for this admission?: Yes (2) HTN (hypertension) Is this a current diagnosis for this admission?: Yes (3) CAD (coronary artery disease) Is this a current diagnosis for this admission?: Yes (4) HLD (hyperlipidemia) Is this a current diagnosis for this admission?: Yes (5) Type 2 diabetes mellitus with obesity Is this a current diagnosis for this admission?: Yes (6) COPD (chronic obstructive pulmonary disease) Is this a current diagnosis for this admission?: Yes (7) Anemia Is this a current diagnosis for this admission?: Yes (8) GERD (gastroesophageal reflux disease) Is this a current diagnosis for this admission?: Yes (9) Dysarthria as late effect of stroke Is this a current diagnosis for this admission?: Yes - Assessment Summary: Patient was admitted for worsening shortness of breath and leg swelling with c oncern for acute diastolic congestive heart failure. She was seen in consultation by Dr. Omalley, eyeglass lens cutter, with adjustment in her medication in accordance with GDMT. There was resolution of her symptoms since admission but she experience intermittent confusion state that resulted in CT scan of her head due to concern for possible stroke. Her CT scans were reported within normal limits in findings. Her hospitalization is further compromised with generalized deconditioning. She will benefit from short term rehabilitation placement at SNF. She will follow up with Dr Omalley for further evaluation and management for her congestive heart failure and myself in the office as instructed upon discharge. - Additional Information Resuscitation Status: Full Code Discharge Diet: Cardiac, Diabetic Discharge Activity: Activity As Tolerated, Balance Activity w/Rest, Weigh Daily Referrals: DOUGLAS RODRIGUEZ MD [ACTIVE STAFF] - 07/05/20 2:00 pm (Tuesday07-07-[address] Omalley office) DANIELA ANDERSEN MD [Primary Care Provider] - 07/17/20 10:30 am Home Medications: Cyclosporine 0.05% Oph Emulsio [Restasis 0.05% Oph Emulsion Pf 0.4 ml] 1 drop OU BID 07/30/12 Montelukast Sodium [Singulair 10 mg Tablet] 10 mg PO QPM 07/30/12 Nitroglycerin [Nitro-Dur 15 mg (0.6 mg/1 Hr) Transderm Patch] 1 patch TD QAM 07/30/12 Ammonium Lactate 1 applic TOP BID 07/04/19 Atorvastatin Calcium [Lipitor 40 mg Tablet] 40 mg PO QPM 07/04/19 Exenatide Microspheres [Bydureon Pen] 2 mg PO TU@1000 07/04/19 Melatonin 10 mg PO QHS 07/04/19 Metformin HCl [Glucophage 500 mg Tablet] 500 mg PO BIDACBS 07/04/19 Nitroglycerin [Nitrostat 0.4 mg (1/150 Gr) Tabs 25/Bottle] 1 tab SL Q5MP PRN 07/04/19 Pantoprazole Sodium 40 mg PO ACBRKFST 07/04/19 Rivaroxaban [Xarelto] 20 mg PO DAILY@1700 07/04/19 Tramadol HCl [Ultram 50 mg Tablet] 50 mg PO Q6HP PRN 07/04/19 Amlodipine Besylate [Norvasc 5 mg Tablet] 5 mg PO Q12 tablet 07/08/20 Metoprolol Succinate [Toprol Xl 50 mg Tab.sr] 100 mg PO DAILY tab.sr.24h 07/08/20 Valsartan [Diovan 160 mg Tablet] 160 mg PO Q12 tablet 07/08/20 History of Present Illiness History of Present Illness: FARAZ MARTINEZ is a 75 year old female known to my practice who presented to the ED with two week history of intermittent chest pain, worsening shortness of breathe and leg swelling. She denied any associated palpitation, dizziness, or headache. she reported incident of fall earlier on the day of her presentation. The patient and daughter at bedside could not expatiate on the circumstance of her fall but reported that she sustained bruise injury on her nose. She denied any neck or back pain. She denied loss of consciousness. She denied any nausea, vomiting or abdominal pain. No fever or chills. No dysuria, flank pain or hematuria. She was at the ED recently and diagnosed with anemia as source of her difficulty with breathing. She was transfused 2 units PRBC. Her initial evaluation in the ED was significant for tachypnea, bilateral leg swelling, elevated NT-Pro BNP, hypokalemia, and slightly elevated total bilirubin level. She was advised hospitalization for further evaluation and management. Her morbidities are listed below. Hospital Course Hospital Course: Patient was admitted for worsening shortness of breath and leg swelling with concern for acute diastolic congestive heart failure. She was seen in consultation by Dr. Omalley, eyeglass lens cutter, with adjustment in her medication in accordance with GDMT. There was resolution of her symptoms since admission but she experience intermittent confusion state that resulted in CT scan of her head due to concern for possible stroke. Her CT scans were reported within normal limits in findings. Her hospitalization is further compromised with generalized deconditioning. She will benefit from short term rehabilitation placement at [facility]. She will follow up with Dr Omalley for further evaluation and management for her congestive heart failure and myself in the office as instructed upon discharge. Physical Exam Vital Signs: Temp Pulse Resp BP Pulse Ox 98.5 F 55 L 17 102/55 L 100 07/08/20 10:00 07/08/20 10:00 07/08/20 10:00 07/08/20 10:00 07/08/20 10:00 Intake & Output 07/07/20 07/08/20 07/09/20 06:59 06:59 06:59 Intake Total 902 1310 Balance 902 1310 Weight 63.5 kg 63.5 kg General appearance: PRESENT: no acute distress Head exam: PRESENT: atraumatic, normocephalic Eye exam: PRESENT: conjunctiva pink. ABSENT: pallor, scleral icterus Mouth exam: PRESENT: moist Respiratory exam: PRESENT: clear to auscultation raimundo Cardiovascular exam: PRESENT: RRR, +S1, +S2. ABSENT: diastolic murmur, rubs, systolic murmur GI/Abdominal exam: PRESENT: normal bowel sounds, soft. ABSENT: tenderness Extremities exam: ABSENT: pedal edema Neurological exam: PRESENT: alert, awake Psychiatric exam: ABSENT: agitated, anxious Skin exam: PRESENT: dry, warm Results Laboratory Results: WBC 4.7 10^3/uL (4.0-10.5) 06/30/20 05:40 RBC 4.56 10^6/uL (3.72-5.28) 06/30/20 05:40 Hgb 10.5 g/dL (12.0-15.5) L 06/30/20 05:40 Hct 33.5 % (36.0-47.0) L 06/30/20 05:40 MCV 74 fl (80-97) L 06/30/20 05:40 MCH 23.0 pg (27.0-33.4) L 06/30/20 05:40 MCHC 31.3 g/dL (32.0-36.0) L 06/30/20 05:40 RDW 21.3 % (11.5-14.0) H 06/30/20 05:40 Plt Count 200 10^3/uL (150-450) 06/30/20 05:40 Lymph % (Auto) 22.1 % (13-45) 06/30/20 05:40 [place] % (Auto) 9.0 % (3-13) 06/30/20 05:40 Eos % (Auto) 4.1 % (0-6) 06/30/20 05:40 Baso % (Auto) 1.3 % (0-2) 06/30/20 05:40 Absolute Neuts (auto) 3.0 10^3/uL (1.7-8.2) 06/30/20 05:40 Absolute Lymphs (auto) 1.0 10^3/uL (0.5-4.7) 06/30/20 05:40 Absolute Monos (auto) 0.4 10^3/uL (0.1-1.4) 06/30/20 05:40 Absolute Eos (auto) 0.2 10^3/uL (0.0-0.6) 06/30/20 05:40 Absolute Basos (auto) 0.1 10^3/uL (0.0-0.2) 06/30/20 05:40 Seg Neutrophils % 63.5 % (42-78) 06/30/20 05:40 Platelet Comment ADEQUATE 06/30/20 05:40 Polychromasia SLIGHT 06/30/20 05:40 Hypochromasia 2+ 06/30/20 05:40 Anisocytosis 3+ 06/30/20 05:40 Microcytosis 1+ 06/30/20 05:40 Ovalocytes 1+ 06/30/20 05:40 VBG pH 7.38 (7.30-7.42) 06/29/20 00:45 VBG pCO2 50.3 mmHg (35-63) 06/29/20 00:45 VBG HCO3 28.8 mmol/L (20-32) 06/29/20 00:45 VBG Base Excess 2.8 mmol/L 06/29/20 00:45 Sodium 140.5 mmol/L (137-145) 06/30/20 05:40 Potassium 4.7 mmol/L (3.6-5.0) 06/30/20 05:40 Chloride 104 mmol/L (98-107) 06/30/20 05:40 Carbon Dioxide 29 mmol/L (22-30) 06/30/20 05:40 Anion Gap 8 (5-19) 06/30/20 05:40 BUN 19 mg/dL (7-20) 06/30/20 05:40 Creatinine 0.97 mg/dL (0.52-1.25) 06/30/20 05:40 Est GFR ( Amer) > 60 (>60) 06/30/20 05:40 Est GFR (MDRD) Non-Af 56 (>60) L 06/30/20 05:40 Glucose 82 mg/dL (75-110) 06/30/20 05:40 POC Glucose 95 mg/dL (70-110) 07/08/20 11:21 Calcium 9.1 mg/dL (8.4-10.2) 06/30/20 05:40 Phosphorus 3.6 mg/dL (2.5-4.5) 06/28/20 22:30 Magnesium 2.2 mg/dL (1.6-2.3) 06/30/20 05:40 Total Bilirubin 1.1 mg/dL (0.2-1.3) 06/30/20 05:40 Direct Bilirubin 0.4 mg/dL (0.0-0.4) 06/30/20 05:40 Neonat Total Bilirubin Not Reportable 06/30/20 05:40 Neonat Direct Bilirubin Not Reportable 06/30/20 05:40 Neonat Indirect Bili Not Reportable 06/30/20 05:40 AST 22 U/L (14-36) 06/30/20 05:40 ALT 21 U/L (<35) 06/30/20 05:40 Alkaline Phosphatase 52 U/L (38-126) 06/30/20 05:40 Troponin I 0.073 ng/mL 10/24/20 23:30 NT-Pro-B Natriuret Pep 39326 pg/mL (<125) H 06/28/20 23:30 Total Protein 6.1 g/dL (6.3-8.2) L 06/30/20 05:40 Albumin 3.3 g/dL (3.5-5.0) L 06/30/20 05:40 COVID-19 Source See comment 07/03/20 17:00 COVID-19 (IRVIN) Not Detected (Not Detect) 07/03/20 17:00 06/28/20 06/28/20 23:30 23:30 Troponin I 0.073 NT-Pro-B Natriuret Pep [id number] H Impressions: Chest X-Ray 06/28/20 23:22 IMPRESSION: Pulmonary edema with small pleural effusions. Cervical Spine CT 06/29/20 00:19 IMPRESSION: No acute fracture or subluxation. Head CT 06/29/20 00:19 IMPRESSION: No acute intracranial findings. Facial Bones CT 06/29/20 00:28 IMPRESSION: No post-traumatic findings. Head CT 07/08/20 00:00 IMPRESSION: Stable examination with no acute intracranial abnormality. Plan Health Concerns: High readmission risk due to her morbidities and lack of support presently. Plan of Treatment: Short term rehabilitation at SNF. Follow up with Dr Omalley and myself as instructed upon discharge from SNF. Facility staff should call my office for appointment before discharge from SNF. Goals: Reduce readmission risk through close community follow up and support services. She will benefit from SNF rehabilitation and upon discharge RPM program enrollme nt. Stroke Is this a Stroke Patient?: No Acute Heart Failure Is this a Heart Failure Patient?: Yes Documentation of LVEF assessment?: Planned for after discharge LVEF: LVEF Less Than or Equal to 40% Anticoagulant Therapy: Yes Discharged on Evidence-Based Beta Blockers: Yes Discharged on ARNI?: No-Document Contraindications Reason(s) not discharged on ARNI: ACEI use within the prior 36 hours Discharged on ARB?: Yes Discharged on ACEI?: N/A Discharged on ARB For LVEF <35%, discharged on Aldosterone Antagonist?: N/A (LVEF > or = 35%) Follow-up Appointment scheduled within 7 days?: No, document reason - Discharged to SNF for short term rehabilitation.
[2020-07-08] MEDS: ATORVASTATIN CALCIUM 40 MG TABLET PO SCH (17:11)
[2020-07-08] MEDS: RIVAROXABAN 10 MG TABLET PO SCH (17:11)
--- NOTE | 2020-07-08 17:27 | Progress Note ---
Provider Note Provider Note: Patient discharge was cancelled due to her insurance delay in authorization after requested PT evaluation was completed today. She will be transferred to the SNF tomorrow if her bed offer remain available and authorized by her insurance.
[2020-07-09] MEDS: FUROSEMIDE 40 MG TABLET PO SCH (10:19)
[2020-07-09] MEDS: VALSARTAN 160 MG TABLET PO SCH (10:21)
[2020-07-09] MEDS: AMLODIPINE BESYLATE 5 MG TABLET PO SCH (10:22)
[2020-07-09] MEDS: METFORMIN HCL 500 MG TABLET PO SCH (10:22)
[2020-07-09] MEDS: PANTOPRAZOLE SODIUM 40 MG TABLET.DR PO SCH (10:22)
[2020-07-09] MEDS: INSULIN LISPRO 100 UNIT/ML 3 ML VIAL SUBCUT SCH ×2 (10:22→14:09)
[2020-07-09] MEDS: NITROGLYCERIN 15 MG (0.6 MG/1 HR) PATCH.TD24 TD SCH (10:22)
[2020-07-09] MEDS: CYCLOSPORINE 0.05% OPH EMULSIO 0.4 ML DROPERETTE OU SCH (10:23)
[2020-07-09] MEDS: METOPROLOL SUCCINATE 50 MG TAB.SR.24H PO SCH (10:26)
[2020-07-09] MEDS: AMMONIUM LACTATE 12% LOTION 225GM BOTTLE TP SCH (10:29)
[2020-07-09 15:39] VITALS: BP 131/82
--- NOTE | 2020-07-09 18:20 | Progress Note ---
Provider Note Provider Note: Subjective: No chest pain or difficulty with breathing. No fever or chills. No nausea, vo miting, abdominal pastrana or diarrhea. Examination: General appearance: PRESENT: no acute distress Head exam: PRESENT: atraumatic, normocephalic Eye exam: PRESENT: conjunctiva pink. ABSENT: pallor, sclera icterus Mouth exam: PRESENT: moist Respiratory exam: PRESENT: clear to auscultation raimundo Cardiovascular exam: PRESENT: RRR, +S1, +S2. ABSENT: diastolic murmur, rubs, systolic murmur GI/Abdominal exam: PRESENT: normal bowel sounds, soft. ABSENT: tenderness Extremities exam: ABSENT: pedal edema Neurological exam: PRESENT: alert, awake Psychiatric exam: ABSENT: agitated, anxious Skin exam: PRESENT: dry, warm Assessment & Plan Diagnosis (1) Acute CHF (congestive heart failure) (2) HTN (hypertension) (3) CAD (coronary artery disease) (4) HLD (hyperlipidemia) (5) Type 2 diabetes mellitus with obesity (6) COPD (chronic obstructive pulmonary disease) (7) Anemia (8) GERD (gastroesophageal reflux disease) (9) Dysarthria as late effect of stroke Plan Summary: Transfer to SNF for short term rehabilitation. Follow up in the office with Dr. Omalley and myself as instructed upon discharge.
--- NOTE | 2020-07-18 15:18 | Progress Note ---
Provider Note Provider Note: I do not agree with diagnosis of Hypertensive Emergency. The ED provider should clarify his or her decision for the diagnosis.
== END 2020-07-09 16:51 | DRG 291 ==
LOC: ER 23:08 → EH 06-29 04:06 → 3S 06-29 05:25
PROVIDERS: ADMIT Internal Medicine Geriatric Medicine; ATTEND Internal Medicine Geriatric Medicine
PROC: 3E0234Z Introduction of Serum, Toxoid and Vaccine into Muscle, Percutaneous Approach (ICD-10-PCS; principal; 2020-06-29)
DX: I11.0 Hypertensive heart disease with heart failure (principal); I50.31 Acute diastolic (congestive) heart failure; I25.10 Atherosclerotic heart disease of native coronary artery without angina pectoris; J44.9 Chronic obstructive pulmonary disease, unspecified; Z20.828 Contact with and (suspected) exposure to other viral communicable diseases; E78.5 Hyperlipidemia, unspecified; E66.9 Obesity, unspecified; K21.9 Gastro-esophageal reflux disease without esophagitis; I48.0 Paroxysmal atrial fibrillation; E87.6 Hypokalemia; E11.51 Type 2 diabetes mellitus with diabetic peripheral angiopathy without gangrene; D50.9 Iron deficiency anemia, unspecified; F32.9 Major depressive disorder, single episode, unspecified; W19.XXXA Unspecified fall, initial encounter; S00.33XA Contusion of nose, initial encounter; I44.4 Left anterior fascicular block; I51.7 Cardiomegaly; Z60.2 Problems related to living alone; I69.322 Dysarthria following cerebral infarction; Z95.5 Presence of coronary angioplasty implant and graft; Z23 Encounter for immunization; Z79.899 Other long term (current) drug therapy; Z79.84 Long term (current) use of oral hypoglycemic drugs; Z79.01 Long term (current) use of anticoagulants; Z87.891 Personal history of nicotine dependence; Z88.6 Allergy status to analgesic agent
CPT/HCPCS: 36415; 70450; 70486; 71045; 72125; 80053; 82803; 82962; 83735; 83880; 84100; 84484; 85025; 87635; 90471; 90715; 93005; 93010; 96365; 96366; 96375; 99285; C9803; J1940; J2405; J3490; J7030

== ENCOUNTER → 2020-07-28 | Outpatient (CLI) | payer MEDICARE, MEDICAID | LOC: RAD 15:00 | PROVIDERS: ATTEND Internal Medicine Geriatric Medicine | DX: Z53.8 Procedure and treatment not carried out for other reasons (principal) | CPT/HCPCS: 82565 ==

== ENCOUNTER → 2020-08-22 | Outpatient (CLI) | payer MEDICARE, MEDICAID ==
--- NOTE | 2020-08-22 16:18 | RADIOLOGY REPORT (SQ) ---
EXAM DESCRIPTION: CTA CHEST IMAGES COMPLETED DATE/TIME: 08/22/2020 3:55 pm REASON FOR STUDY: (R09.89)OTH SYMPTOMS AND SIGNS INVOLVING THE CIRC AND RESP SYSTEMS R09.89 OTH SYM PTOMS AND SIGNS INVOLVING THE CIRC AND RESP SY COMPARISON: 11/28/2018 TECHNIQUE: CT scan of the chest performed using helical scanning technique with dynamic intravenous contrast injection. Images reviewed with lung, soft tissue and bone windows. Reconstructed coronal and sagittal MPR images reviewed. Additional 3 dimensional post-processing performed to develop Maximal Intensity Projection images (IL P). All images stored on PACS. All CT scanners at this facility use dose modulation, iterative reconstruction, and/or weight based d osing when appropriate to reduce radiation dose to as low as reasonably achievable (ALARA). [facility]: Dose Right [facility]: CareDose [facility]: Dose Right [facility]: Teradose 4D [facility]: Decoholic CONTRAST TYPE AND DOSE: contrast/concentration: Isovue mmol/ml; Total Contrast Delivered: 75.0 ml; Total Saline Delivered: 45.0 ml Contrast bolus optimized for the pulmonary arteries. Not diagnostic for the aorta. RENAL FUNCTION: Creatinine 1.1 RADIATION DOSE: CT Rad equipment meets quality standard of care and radiation dose reduction techniq ues were employed. CTDIvol: 11.3 - 15.2 mGy. DLP: 614 mGy-cm. . LIMITATIONS: None. FINDINGS: LUNGS AND PLEURA: No masses, infiltrates, or pneumothorax. No pleural effusions or pleura l calcifications. AORTA AND GREAT VESSELS: No aneurysm. Contrast bolus not optimized for the aorta. HEART: No pericardial effusion. Coronary artery stent. PULMONARY ARTERIES: No emboli visualized in the main pulmonary arteries or the segmental branches. HILAR AND MEDIASTINAL STRUCTURES: No identified masses or abnormal nodes. HARDWARE: None in the chest. UPPER ABDOMEN: No significant findings. Limited exam. THYROID AND OTHER SOFT TISSUES: No masses. No adenopathy. BONES: No acute or significant finding. 3D MIPS: Confirm above findings. OTHER: No other significant finding. IMPRESSION: There is no pulmonary embolus. There is no aortic aneurysm. No acute findings in the t horax. COMMENT: Quality ID # [id number]: Final reports with documentation of one or more dose reduction techniques (e.g., Automated exposure control, adjustment of the mA and/or kV according to patient size, use of iterative reconstruction technique) TECHNICAL DOCUMENTATION: JOB ID: [id number] 2010 [email or web address]- All Rights Reserved Reading location - IP/workstation name: [email or web address]
== END ==
LOC: RAD 14:49
PROVIDERS: ATTEND Internal Medicine Geriatric Medicine
DX: R09.89 Other specified symptoms and signs involving the circulatory and respiratory systems (principal)
CPT/HCPCS: 71275; 82565